=== PATIENT | male | born 1955 | race Hispanic/Latino ===

== ENCOUNTER 2017-11-20 02:44 | Emergency (ER) | payer OTHER ==
[2017-11-20 03:19] LABS: Basophils % (Auto) 0.6 % (0.0-1.8); Eosinophils % (Auto) 0.7 % (0.0-4.3); Hematocrit 43.2 % (35.5-45.6); Hemoglobin 14.5 gm/dl (11.8-15.2); Lymphocytes # (Auto) 1.3 K/mm3 (1.2-5.4); Lymphocytes % (Auto) 20.7 % (13.4-35.0); Mean Corpuscular HGB Conc 34 % (32-34); Mean Corpuscular Hemoglobin 30 pg (28-32); Mean Corpuscular Volume 89 fl (84-94); Monocytes # (Auto) 0.6 K/mm3 (0.0-0.8); Platelet Count 273 K/mm3 (140-440); Red Blood Count 4.87 M/mm3 (3.65-5.03); Red Cell Distribution Width 13.8 % (13.2-15.2)
[2017-11-20 03:49] LABS: Alanine Aminotransferase 28 units/L (7-56); Albumin 4.4 g/dL (3.9-5); BUN/Creatinine Ratio 21; Blood Urea Nitrogen 15 mg/dL (9-20); Calcium 9.6 mg/dL (8.4-10.2); Hemolysis Index 6
[2017-11-20 05:45] LABS: Bilirubin,Urine NEG (Negative); Blood,Urine NEG (Negative); Color,Urine Yellow (Yellow); Mucus,Urine FEW /HPF; Protein,Urine <15 mg/dL mg/dL (Negative); Urobilinogen,Urine < 2.0 mg/dL (<2.0)
[2017-11-20 05:52] LABS: Amphetamine Screen,Urine PRESUMPTIVE NEGATIVE; Benzodiazepines Screen,Urine PRESUMPTIVE NEGATIVE; Cannabinoid Screen,Urine PRESUMPTIVE NEGATIVE; Cocaine Screen,Urine PRESUMPTIVE NEGATIVE; Methadone Screen,Urine PRESUMPTIVE NEGATIVE; Opiate Screen,Urine PRESUMPTIVE NEGATIVE
[2017-11-20 06:00] LABS: WBC,Urine < 1.0 /HPF (0.0-6.0)
--- NOTE | 2017-11-20 06:14 | Emergency Department Report ---
ED Psych HPI - General Chief Complaint: Psych Stated Complaint: MH Time Seen by Provider: 11/20/17 06:13 Source: patient Mode of arrival: Ambulatory - History of Present Illness Initial Comments: Patient complains of suicidal ideation secondary to acute situational stress which is primarily financial, and onset yesterday evening, secondary to worrying about his current physical situation and became increasingly with a sense of depression and hopelessness and feeling like he wanted to kill himself , but without a definite plan. Patient has history of depression, has most recently been hospitalized over the past month and a series of psychiatric hospitals, under voluntary admission, for suicidal ideation and depression, and was currently living in a half-way house, when he developed his symptoms yesterday. He had his car at the facility, did not notify anyone, left and came here for further evaluation. Since being here overnight, he reports it is calm down substantially, and that he now no longer feels that he isn't suicidal , and again reports that there is no plan. He has no additional complaints, and believes that he is stable for discharge at this time, and will return to his half-way home residence, if psychiatric evaluation stable here. Patient has a history of coronary artery disease with prior stenting, takes carvedilol and lisinopril, for both his heart as well as for hypertension, but is otherwise in good general health. He has no additional complaints. Complaint: suicidal ideation - Related Data Allergies Allergy/AdvReac Type Severity Reaction Status Date / Time No Known Allergies Allergy Verified 11/20/17 02:50 ED Review of Systems ROS: Stated complaint: MH Other details as noted in HPI Comment: All other systems reviewed and negative Constitutional: denies: chills, fever ENT: denies: ear pain, throat pain Respiratory: denies: cough, shortness of breath, wheezing Cardiovascular: denies: chest pain, palpitations Endocrine: no symptoms reported Gastrointestinal: denies: abdominal pain, nausea, diarrhea Musculoskeletal: denies: back pain, joint swelling, arthralgia Skin: denies: rash, lesions Neurological: denies: headache, weakness, paresthesias Psychiatric: anxiety, depression, suicidal thoughts. denies: auditory hallucinations, visual hallucinations ED Past Medical Hx - Past Medical History Hx Hypertension: Yes Hx Heart Attack/AMI: (stent x1) Hx Psychiatric Treatment: Yes (depression) - Surgical History Past Surgical History?: No - Social History Smoking Status: Never Smoker Substance Use Type: None ED Physical Exam - General Limitations: No Limitations General appearance: alert, in no apparent distress - Head Head exam: Present: atraumatic, normocephalic - Eye Eye exam: Present: normal appearance, PERRL, EOMI - ENT ENT exam: Present: normal exam, mucous membranes moist - Neck Neck exam: Present: normal inspection, full ROM. Absent: tenderness - Respiratory Respiratory exam: Present: normal lung sounds bilaterally. Absent: wheezes, rales, rhonchi, accessory muscle use - Cardiovascular Cardiovascular Exam: Present: regular rate, normal heart sounds - GI/Abdominal GI/Abdominal exam: Present: soft, normal bowel sounds. Absent: tenderness, guarding - Rectal Rectal exam: Present: deferred - Extremities Exam Extremities exam: Present: normal inspection, full ROM. Absent: pedal edema - Neurological Exam Neurological exam: Present: alert, oriented X3, CN II-XII intact. Absent: motor sensory deficit - Psychiatric Psychiatric exam: Present: normal affect, normal mood. Absent: anxious, manic, suicidal ideation - Skin Skin exam: Present: warm, dry, intact ED Course Vital Signs 11/20/17 11/20/17 11/20/17 02:42 02:51 03:52 Temperature 36.9 C 36.9 C Pulse Rate 95 H 96 H Respiratory 20 18 18 Rate Blood Pressure 143/94 143/94 Blood Pressure [Right] O2 Sat by Pulse 97 97 100 Oximetry 11/20/17 11/20/17 07:30 10:54 Temperature 36.7 C Pulse Rate 77 Respiratory 18 18 Rate Blood Pressure Blood Pressure 153/90 [Right] O2 Sat by Pulse 97 Oximetry - Consultations Consultation #1: 11/20/17 12:58 Patient evaluated by mental health advisor, Aretha, who agrees that patient is much calmer now, and that his suicidal thoughts have subsided, and that is stable for outpatient treatment, and that is well established within the system. He may continue to receive his care from there, return to his half-way home, and may continue his prior regimen, with accelerated repeat evaluation by his mental health counselor. ED Medical Decision Making - Lab Data Result diagrams: 11/20/17 02:56 11/20/17 02:56 - Medical Decision Making Patient with multiple chronic acute stressors, has had exacerbation recently, as the confluence of several sources of stress, both with the recent of a relative, as well as loss of house, all which he tried to manage while being treated as inpatient for depression. This patient has been here overnight, symptoms have subsided as has been removed from source of stress, that he never had a well-formed plan in any case, reports it is no longer suicidal. Psychiatric assessment team concurs, and we both believe the patient is stable for discharge, as he is well established with an system of care, and may return to his prior medication, but should have accelerated repeat visit with psychiatrist or mental health counselor on one to 2 daily basis. Critical Care Time: No Critical care attestation.: If time is entered above; I have spent that time in minutes in the direct care of this critically ill patient, excluding procedure time. ED Disposition Clinical Impression: Acute reaction to situational stress, Suicidal ideation Disposition: TO HOME OR SELFCARE Is pt being admited?: No Does the pt Need Aspirin: No Condition: Stable Instructions: Stress (ED) Additional Instructions: Physical examination and laboratory examination today are stable, and your feelings of increased thoughts of suicide have subsided, and our evaluation and impression is that you're stable for discharge home. He may return here half-way house facility, continue your medications as before, but we also recommend accelerated repeat examination by a mental health counselor or psychiatrist, generally within 1 or 2 days. Return anytime if you have had increased feelings of hopelessness, or thoughts of wanting to hurt yourself or commit suicide. Referrals: PRIMARY CAREMD [Primary Care Provider] - 3-5 Days Time of Disposition: 13:04
[2017-11-20] MEDS ORDERED: TYLENOL PO ONE (07:20)
[2017-11-20] MEDS ORDERED: TYLENOL ONE (07:22)
[2017-11-20 11:07] VITALS: BP 153/90
== END 2017-11-20 13:24 | disposition home or self-care (01) ==
LOC: EEVIPCON 02:44 → ED 02:44
DX: F43.0 Acute stress reaction (principal); F32.9 Major depressive disorder, single episode, unspecified; I10 Essential (primary) hypertension; I25.10 Atherosclerotic heart disease of native coronary artery without angina pectoris
CPT/HCPCS: 36415; 80053; 80307; 81001; 85025; 99283

== ENCOUNTER 2018-01-03 15:57 | Emergency (ER) | payer OTHER ==
[2018-01-03 16:34] LABS: Basophils % (Auto) 0.7 % (0.0-1.8); Eosinophils # (Auto) 0.1 K/mm3 (0.0-0.4); Eosinophils % (Auto) 0.8 % (0.0-4.3); Hematocrit 47.7 % (35.5-45.6); Hemoglobin 16.3 gm/dl (11.8-15.2); Lymphocytes # (Auto) 1.4 K/mm3 (1.2-5.4); Lymphocytes % (Auto) 20.2 % (13.4-35.0); Mean Corpuscular HGB Conc 34 % (32-34); Mean Corpuscular Hemoglobin 30 pg (28-32); Mean Corpuscular Volume 87 fl (84-94); Monocytes # (Auto) 0.9 K/mm3 (0.0-0.8); Monocytes % (Auto) 13.6 % (0.0-7.3); Platelet Count 251 K/mm3 (140-440); Red Blood Count 5.46 M/mm3 (3.65-5.03); Red Cell Distribution Width 14.2 % (13.2-15.2)
[2018-01-03 16:47] LABS: BUN/Creatinine Ratio 20; Blood Urea Nitrogen 20 mg/dL (9-20); Calcium 9.4 mg/dL (8.4-10.2); Hemolysis Index 7
[2018-01-03 17:04] LABS: Bacteria,Urine 1+ /HPF (Negative); Bilirubin,Urine NEG (Negative); Blood,Urine NEG (Negative); Color,Urine Amber (Yellow); Mucus,Urine 3+ /HPF
[2018-01-03 17:08] LABS: Amphetamine Screen,Urine PRESUMPTIVE NEGATIVE; Benzodiazepines Screen,Urine PRESUMPTIVE NEGATIVE; Cannabinoid Screen,Urine PRESUMPTIVE NEGATIVE; Cocaine Screen,Urine PRESUMPTIVE NEGATIVE; Methadone Screen,Urine PRESUMPTIVE NEGATIVE; Opiate Screen,Urine PRESUMPTIVE NEGATIVE
--- NOTE | 2018-01-03 19:54 | Emergency Department Report ---
ED Psych HPI - General Chief Complaint: Medical Clearance Stated Complaint: SUICDAL Time Seen by Provider: 01/03/18 19:24 Source: patient Mode of arrival: Ambulatory - History of Present Illness Initial Comments: Patient with long-standing history of depression, reports increased suicidal ideation, prompted by recent loss of his current long term at [facility], where he was unhappy in any case, but from which she was dismissed today. He has been receiving daily counseling at [facility] on an outpatient basis, and made contact with him about inpatient admission, but was sent here for medical clearance. Frequency of suicidal thoughts, but these have been poorly formed, and he has not made any active plans, and has not made any active attempt. His primary concern is about his current situation, which increases his sense of desperation and hopelessness, which increases his symptoms of depression, which increases his suicidal thought frequency. Other than that, patient has been stable, denies substance abuse, with no alcohol ingestion, no oral drugs of abuse, no injectable drugs of abuse, but also reports that he has also not had much in the way of nourishment since he left long term, reporting that he is hungry and thirsty, and requesting food. Other than that he is feeling fairly well. Patient denies any fever or chills or diaphoresis, having no respiratory difficulties, no abdominal pain, no nausea or vomiting, no diarrhea. He does not feel confused, does not feel out of touch with reality, and denies hallucinations or delusional thinking. Patient evaluated here one month ago for similar complaints, with stable evaluation, but ultimately felt to be stable for outpatient care, and has been managed at [facility] for counseling on a daily basis since then. - Related Data Allergies Allergy/AdvReac Type Severity Reaction Status Date / Time No Known Allergies Allergy Verified 11/20/17 02:50 ED Review of Systems ROS: Stated complaint: SUICDAL Other details as noted in HPI Comment: All other systems reviewed and negative Constitutional: denies: chills, fever Respiratory: denies: cough, shortness of breath, wheezing Cardiovascular: denies: chest pain, palpitations Endocrine: no symptoms reported Gastrointestinal: denies: abdominal pain, nausea, diarrhea Genitourinary: denies: urgency, dysuria Musculoskeletal: denies: back pain, joint swelling, arthralgia Skin: denies: rash, lesions Neurological: denies: headache, weakness, paresthesias Psychiatric: anxiety, depression, suicidal thoughts Hematological/Lymphatic: denies: easy bleeding, easy bruising ED Past Medical Hx - Past Medical History Hx Hypertension: Yes Hx Heart Attack/AMI: (stent x1) Hx Psychiatric Treatment: Yes (depression) - Surgical History Past Surgical History?: No - Social History Smoking Status: Never Smoker Substance Use Type: None ED Physical Exam - General Limitations: No Limitations General appearance: alert, in no apparent distress - Head Head exam: Present: atraumatic, normocephalic - Eye Eye exam: Present: PERRL, EOMI - ENT ENT exam: Present: normal exam, mucous membranes dry - Neck Neck exam: Present: normal inspection, full ROM. Absent: tenderness - Respiratory Respiratory exam: Present: normal lung sounds bilaterally, chest wall tenderness (mild left lateral anterior chest wall muscular tenderness). Absent : respiratory distress, wheezes, accessory muscle use - Cardiovascular Cardiovascular Exam: Present: regular rate, normal rhythm, normal heart sounds, systolic murmur (soft 1-2/6, heard in left lower sternal border). Absent: diastolic murmur - GI/Abdominal GI/Abdominal exam: Present: soft - Rectal Rectal exam: Present: deferred - Extremities Exam Extremities exam: Present: normal inspection, full ROM. Absent: tenderness, pedal edema, joint swelling ED Course Vital Signs 01/03/18 01/03/18 16:08 17:30 Temperature 36.6 C 36.8 C Pulse Rate 102 H 107 H Respiratory 16 20 Rate Blood Pressure 105/72 Blood Pressure 106/74 [Right] O2 Sat by Pulse 96 96 Oximetry - Reevaluation(s) Reevaluation #1: 01/03/18 20:22 1013 commitment signed. ED Medical Decision Making - Lab Data Result diagrams: 01/03/18 16:15 01/03/18 16:15 tox screen is negative, no alcohol, salicylates, acetaminophen, or common drugs of abuse. - Medical Decision Making Patient is chronically depressed, and has had recent exacerbation of depressive symptoms with situational stress and loss of home, and has expressed suicidal ideation. Mental health assessment feels that he is a significant risk, and that he is unable to comfortably sign a security agreement, and the patient will likely need inpatient evaluation and stabilization. Patient is physically stable, but he has mild metabolic abnormalities with a depressed bicarbonate, likely compatible with dehydration and acute starvation due to lack of recent nourishment. Patient declined offer of IV rehydration, will be rehydrated orally, and was offered meals while pending placement. Laboratory assessment of basic metabolic profile will be repeated on time to basis in 3 hours, and other labs are currently pending will be rechecked prior to patient's transfer, the patient is considered stable ones he has complete review of laboratory evaluation and resolution of his basic metabolic profile alterations. Critical Care Time: No Critical care attestation.: If time is entered above; I have spent that time in minutes in the direct care of this critically ill patient, excluding procedure time. ED Disposition Clinical Impression: Suicidal ideation, Dehydration Disposition: [id number]/TX-65 PSY HOSP/PSY UNIT Is pt being admited?: No Does the pt Need Aspirin: No Condition: Stable Referrals: PRIMARY CARE [Primary Care Provider] - 3-5 Days Time of Disposition: 20:20
[2018-01-03 23:20] LABS: BUN/Creatinine Ratio 24; Blood Urea Nitrogen 22 mg/dL (9-20); Calcium 9.3 mg/dL (8.4-10.2); Hemolysis Index 1
--- NOTE | 2018-01-04 16:00 | Consultation ---
History of Present Illness - Reason for Consult Consult date: 01/04/18 Reason for consult: psychiatric evaluation (suicidal ideation) - Chief Complaint Chief complaint: "I don't know if I want to go on [living]." - History of Present Psychiatric Illness 62 year old WM seen for psychiatric evaluation in the ER. He left [facility] apartments after a disagreement with the person in charge. He states he thinks about overdosing on his medications. He states he has one day left at the [facility] outpatient program. He was inpatient at [facility] for 6 days prior to that. He expressed complaints about [facility], such as receiving food sporadically. He states the person in charge, Jez Vogtton, took their money to buy "dope and entertain his women." He reports being diagnosed with major depression x 2 years. He denies psychotic or manic symptoms currently or previously. He denies homicidal ideation. Medications and Allergies Allergies Allergy/AdvReac Type Severity Reaction Status Date / Time No Known Allergies Allergy Verified 11/20/17 02:50 Home Medications Medication Instructions Recorded Confirmed Last Taken Type Carvedilol Phosphate [Carvedilol 10 mg PO DAILY 01/03/18 01/03/18 Unknown History ER] Lisinopril [Prinivil] 10 mg PO BID 01/03/18 01/03/18 Unknown History AtorvaSTATin 10 mg PO QHS 01/04/18 01/04/18 Unknown History Past psychiatric history - Past Medical History Past Medical History: CAD, hypertension, hyperlipidemia Past Surgical History: PTCA - past Psychiatric treatment and history Psych: Depression psychiatric treatment history: denies alcohol or illicit substance use denies tobacco use He has been taking paxil and trazodone x 1 mo He denies a history of suicide attempt - Social History Social history: Lives alone (unstable housing) Mental Status Exam - Vital signs Last Vital Signs Temp 97.7 F 01/04/18 09:21 Pulse 87 01/04/18 09:21 Resp 20 01/04/18 09:21 BP 104/70 01/04/18 09:21 Pulse Ox 98 01/04/18 09:21 - Exam Orientation: time, place, person Affect: depressed Mood: congruent with affect Thought content: other (suicidal ideation with a plan to overdose) Thought Process: Intact Perceptions: none Speech: normal rate and pattern Concentration: focused Motor activity: normal Level of consciousness: alert Memory: Intact Sleep Symptoms: Difficulty Falling Asleep Interaction: cooperative Results Result Diagrams: 01/03/18 16:15 01/03/18 22:53 Abnormal lab results 01/03/18 01/03/18 01/03/18 Range/Units 16:15 16:15 16:15 RBC (3.65-5.03) M/mm3 Hgb (11.8-15.2) gm/dl Hct (35.5-45.6) % [place] % (Auto) (0.0-7.3) % [place] # (0.0-0.8) K/mm3 Sodium (137-145) mmol/L Carbon Dioxide 19 L (22-30) mmol/L BUN (9-20) mg/dL Glucose (75-100) mg/dL Salicylates < 0.3 L (2.8-20.0) mg/dL Acetaminophen < 5.0 L (10.0-30.0) ug/mL 01/03/18 01/03/18 Range/Units 16:15 22:53 RBC 5.46 H (3.65-5.03) M/mm3 Hgb 16.3 H (11.8-15.2) gm/dl Hct 47.7 H (35.5-45.6) % [place] % (Auto) 13.6 H (0.0-7.3) % [place] # 0.9 H (0.0-0.8) K/mm3 Sodium 136 L (137-145) mmol/L Carbon Dioxide (22-30) mmol/L BUN 22 H (9-20) mg/dL Glucose 123 H (75-100) mg/dL Salicylates (2.8-20.0) mg/dL Acetaminophen (10.0-30.0) ug/mL All other labs normal. Assessment and Plan Assessment and plan: Impression: Major depressive disorder, recurrent, severe, without psychotic features suicidal ideation with a plan to overdose med hx: CAD, hyperlipidemia, HTN, obesity Recommendations: Continue 1013 and transfer to inpatient psychiatric facility when medically cleared Continue home meds of paxil 10mg daily and trazodone 50mg hs for depression/ sleep. He denies side effects when taking these together. His nurse was informed he takes lisinopril 10mg daily, coreg 6.25mg daily, and atorvastatin 10mg hs for his medical conditions.
[2018-01-04] MEDS ORDERED: ZESTRIL PO SCH (19:00)
[2018-01-04] MEDS ORDERED: COREG PO SCH (22:00)
[2018-01-04] MEDS ORDERED: PAXIL PO SCH (22:00)
[2018-01-04] MEDS ORDERED: DESYREL PO SCH (22:00)
[2018-01-05 00:43] VITALS: BP 109/74
== END 2018-01-05 08:17 ==
LOC: ED 15:57
DX: F32.9 Major depressive disorder, single episode, unspecified (principal)
CPT/HCPCS: 36415; 80048; 80307; 81001; 82140; 84484; 85025; 93005; 93010; 99285; A9270; G0480; 80320

== ENCOUNTER 2018-06-12 06:23 | Emergency (ER) | payer OTHER ==
[2018-06-12] MEDS ORDERED: ASPIRIN PO ONE (06:42)
[2018-06-12 07:06] LABS: Basophils % (Auto) 0.6 % (0.0-1.8); Eosinophils # (Auto) 0.1 K/mm3 (0.0-0.4); Eosinophils % (Auto) 1.3 % (0.0-4.3); Hematocrit 40.7 % (35.5-45.6); Hemoglobin 13.6 gm/dl (11.8-15.2); Lymphocytes # (Auto) 1.5 K/mm3 (1.2-5.4); Lymphocytes % (Auto) 24.4 % (13.4-35.0); Mean Corpuscular HGB Conc 33 % (32-34); Mean Corpuscular Volume 88 fl (84-94); Monocytes # (Auto) 0.5 K/mm3 (0.0-0.8); Monocytes % (Auto) 7.4 % (0.0-7.3); Platelet Count 286 K/mm3 (140-440); Red Blood Count 4.61 M/mm3 (3.65-5.03); Red Cell Distribution Width 14.2 % (13.2-15.2)
[2018-06-12 07:16] LABS: Bilirubin,Urine NEG (Negative); Blood,Urine NEG (Negative); Color,Urine Yellow (Yellow); Mucus,Urine 3+ /HPF; Protein,Urine <15 mg/dL mg/dL (Negative); Urobilinogen,Urine < 2.0 mg/dL (<2.0)
[2018-06-12 07:18] LABS: Amphetamine Screen,Urine PRESUMPTIVE NEGATIVE; Benzodiazepines Screen,Urine PRESUMPTIVE NEGATIVE; Cannabinoid Screen,Urine PRESUMPTIVE NEGATIVE; Cocaine Screen,Urine PRESUMPTIVE NEGATIVE; Methadone Screen,Urine PRESUMPTIVE NEGATIVE; Opiate Screen,Urine PRESUMPTIVE NEGATIVE
[2018-06-12 07:21] LABS: BUN/Creatinine Ratio 18; Blood Urea Nitrogen 16 mg/dL (9-20); Calcium 9.1 mg/dL (8.4-10.2); Hemolysis Index 6
--- NOTE | 2018-06-12 07:45 | Emergency Department Report ---
ED Psych HPI - General Chief Complaint: Psych Stated Complaint: URI Time Seen by Provider: 06/12/18 07:40 Source: patient Mode of arrival: Ambulatory - History of Present Illness Initial Comments: Patient is a 62-year-old male that presents to emergency room with complaints of cough 4 days. Patient states he was seen at [facility] 2 days ago and given prescription for Doxy for walking pneumonia. Patient states the cough is improving. Patient states when he coughs he has chest pain is bilateral ribs. Patient states the pain is only there when he coughs and is better when he doesn't cough and rest. Patient states that pain is worse with coughing and palpation. Patient states that he was just discharged from her with this morning at 6 AM for depression and suicidal ideations. Patient states he still having suicidal ideation and still has a plan to kill himself with pills. Patient states he does want to live any wants to take pills in order to kill himself. Patient states he is depressed. Patient states the cough is a dry cough. Patient denies fever. Patient states she is having sinus pressure and a 2 out of 10. Patient states sinus pressure is nonradiating. MD Complaint: suicidal ideation, feels depressed -: Sudden Associated Psychiatric Symptoms: depression, suicidal ideation History of same: Yes Quality: constant Improves With: none Worsens With: none Associated Symptoms: denies: confusion, headache, shortness of breath, nausea, vomiting, syncope, insomnia Treatments Prior to Arrival: placed on mental he If Self Harm: admits thoughts of, has plan - Related Data Home Medications Medication Instructions Recorded Confirmed Last Taken Carvedilol Phosphate [Carvedilol 10 mg PO DAILY 01/03/18 01/03/18 Unknown ER] Lisinopril [Prinivil] 10 mg PO BID 01/03/18 01/03/18 Unknown AtorvaSTATin 10 mg PO QHS 01/04/18 01/04/18 Unknown Allergies Allergy/AdvReac Type Severity Reaction Status Date / Time No Known Allergies Allergy Verified 06/05/18 10:14 ED Review of Systems ROS: Stated complaint: URI Other details as noted in HPI Constitutional: denies: chills, fever Eyes: denies: eye pain, eye discharge, vision change ENT: denies: ear pain, throat pain Respiratory: cough. denies: shortness of breath, wheezing Cardiovascular: chest pain. denies: palpitations Endocrine: no symptoms reported Gastrointestinal: denies: abdominal pain, nausea, diarrhea Genitourinary: denies: urgency, dysuria Musculoskeletal: denies: back pain, joint swelling, arthralgia Skin: denies: rash, lesions Neurological: denies: headache, weakness, paresthesias Psychiatric: denies: anxiety, depression Hematological/Lymphatic: denies: easy bleeding, easy bruising ED Past Medical Hx - Past Medical History Previous Medical History?: Yes Hx Hypertension: Yes Hx Heart Attack/AMI: (stent x1) Hx Psychiatric Treatment: Yes (depression) - Surgical History Past Surgical History?: Yes Hx Coronary Stent: Yes - Family History Family history: no significant - Social History Smoking Status: Never Smoker Substance Use Type: None - Medications Home Medications: Home Medications Medication Instructions Recorded Confirmed Last Taken Type Carvedilol Phosphate [Carvedilol 10 mg PO DAILY 01/03/18 01/03/18 Unknown History ER] Lisinopril [Prinivil] 10 mg PO BID 01/03/18 01/03/18 Unknown History AtorvaSTATin 10 mg PO QHS 01/04/18 01/04/18 Unknown History ED Physical Exam - General Limitations: No Limitations General appearance: alert, in no apparent distress - Head Head exam: Present: atraumatic, normocephalic - Eye Eye exam: Present: normal appearance - ENT ENT exam: Present: mucous membranes moist - Neck Neck exam: Present: normal inspection - Respiratory Respiratory exam: Present: normal lung sounds bilaterally. Absent: respiratory distress - Cardiovascular Cardiovascular Exam: Present: regular rate, normal rhythm. Absent: systolic murmur, diastolic murmur, rubs, gallop - GI/Abdominal GI/Abdominal exam: Present: soft, normal bowel sounds - Rectal Rectal exam: Present: deferred - Extremities Exam Extremities exam: Present: normal inspection - Back Exam Back exam: Present: normal inspection - Neurological Exam Neurological exam: Present: alert, oriented X3 - Psychiatric Psychiatric exam: Present: depressed, suicidal ideation - Skin Skin exam: Present: warm, dry, intact, normal color. Absent: rash ED Course Vital Signs 06/12/18 06/12/18 06:33 08:10 Temperature 98.2 F Pulse Rate 88 73 Respiratory 20 20 Rate Blood Pressure 135/87 O2 Sat by Pulse 95 97 Oximetry - Reevaluation(s) Reevaluation #1: She states he has not coughed since he's been here. Patient denies chest pain. Patient denies shortness of breath. Patient states she is still suicidal. 06/12/18 08:37 Discussed all results with patient. Patient will remain on 1013. Patient is medically cleared at this time. Mental health Consultation done. 06/12/18 10:24 ED Medical Decision Making - Lab Data Result diagrams: 06/12/18 06:55 06/12/18 06:55 - EKG Data -: EKG Interpreted by [facility] EKG shows normal: sinus rhythm, axis, intervals, QRS complexes, ST-T waves Rate: normal - EKG Data When compared to previous EKG there are: no significant change Interpretation: [facility] - Radiology Data Radiology results: report reviewed, image reviewed PORTABLE CHEST INDICATION: Cough. COMPARISON: 06/05/2018 FINDINGS: Portable, frontal chest radiograph again demonstrates mild cardiomegaly. Lungs remain clear. Stable thoracic spondylosis. CONCLUSION: No acute chest process or significant interval change, as described. - Medical Decision Making Patient is 62-year-old male that came to the ER with complaints of cough, chest pain and suicidal ideations. Patient cough and chest pain secondary to upper respiratory infection. Patient referred infection is of viral origin. Patient is medically clear. Patient was also placed on a 1013 for suicidal ideation with a plan to overdose pill. Patient will remain on a 1013 until accepted into appropriate psychiatric facility. - Differential Diagnosis suicidal ideations. Chest pain. URI. Cough. Critical care attestation.: If time is entered above; I have spent that time in minutes in the direct care of this critically ill patient, excluding procedure time. ED Disposition Clinical Impression: Costochondral chest pain, Cough, Suicidal ideations URI (upper respiratory infection) Qualifiers: URI type: unspecified URI Qualified Code(s): J06.9 - Acute upper respiratory infection, unspecified Chest pain Qualifiers: Chest pain type: unspecified Qualified Code(s): R07.9 - Chest pain, unspecified Disposition: DC/TX-65 PSY HOSP/PSY UNIT Is pt being admited?: No Does the pt Need Aspirin: No Condition: Stable Instructions: Chest Pain (ED), Costochondritis (ED), Upper Respiratory Infection (ED) Additional Instructions: Patient is medically cleared Referrals: SUSU DOLAN MD [Primary Care Provider] - 3-5 Days Time of Disposition: 10:22
--- NOTE | 2018-06-12 08:00 | XRay Report ---
PORTABLE CHEST INDICATION: Cough. COMPARISON: 06/05/2018 FINDINGS: Portable, frontal chest radiograph again demonstrates mild cardiomegaly. Lungs remain clear. Stable thoracic spondylosis. CONCLUSION: No acute chest process or significant interval change, as described. Thank you for the opportunity to participate in this patient's care.
[2018-06-12] MEDS: ZESTRIL PO SCH ×2 (16:40→22:26)
[2018-06-14 11:29] VITALS: BP 138/75
== END 2018-06-12 22:00 ==
LOC: ED 06:23
DX: J06.9 Acute upper respiratory infection, unspecified (principal); M94.0 Chondrocostal junction syndrome [Tietze]; R45.851 Suicidal ideations; I10 Essential (primary) hypertension; I25.2 Old myocardial infarction; F32.9 Major depressive disorder, single episode, unspecified; Z95.5 Presence of coronary angioplasty implant and graft
CPT/HCPCS: 36415; 71045; 80048; 80307; 81001; 84484; 85025; 93005; 93010; 99285; G0480; 80320

== ENCOUNTER 2018-11-24 20:24 | Emergency (ER) | payer OTHER ==
[2018-11-24] MEDS ORDERED: ASPIRIN PO ONE (20:48)
[2018-11-24 21:21] LABS: Basophils % (Auto) 0.3 % (0.0-1.8); Eosinophils # (Auto) 0.1 K/mm3 (0.0-0.4); Eosinophils % (Auto) 1.3 % (0.0-4.3); Hematocrit 38.8 % (35.5-45.6); Hemoglobin 13.1 gm/dl (11.8-15.2); Lymphocytes # (Auto) 1.1 K/mm3 (1.2-5.4); Lymphocytes % (Auto) 13.8 % (13.4-35.0); Mean Corpuscular HGB Conc 34 % (32-34); Mean Corpuscular Volume 89 fl (84-94); Monocytes # (Auto) 0.7 K/mm3 (0.0-0.8); Monocytes % (Auto) 8.8 % (0.0-7.3); Platelet Count 209 K/mm3 (140-440); Red Blood Count 4.38 M/mm3 (3.65-5.03); Red Cell Distribution Width 14.9 % (13.2-15.2)
[2018-11-24 21:37] LABS: BUN/Creatinine Ratio 23; Blood Urea Nitrogen 21 mg/dL (9-20); Hemolysis Index 13
[2018-11-24 21:41] LABS: INR 1.08 (0.87-1.13)
[2018-11-24 21:42] LABS: Partial Thromboplastin Time 24.1 Sec. (24.2-36.6)
--- NOTE | 2018-11-24 21:55 | XRay Report ---
CHEST 1 VIEW, 11/24/2018 9:23 PM INDICATION: Chest pain COMPARISON: None FINDINGS: Support devices: None Heart: The cardiac silhouette is upper limits of normal in size. Lungs/pleura: No focal airspace disease or significant pleural effusion is seen. Additional findings: No additional acute findings. IMPRESSION: 1. No evidence of acute cardiopulmonary process. Signer Name: Valentina Luis MD Signed: 11/24/2018 9:50 PM Workstation Name: [id number]
--- NOTE | 2018-11-24 21:57 | Emergency Department Report ---
<ALIVIA MERINO - Last Filed: 11/25/18 06:09> ED Chest Pain HPI - General Chief Complaint: Chest Pain Stated Complaint: CHEST PAIN Time Seen by Provider: 11/24/18 21:14 - Related Data Home Medications Medication Instructions Recorded Confirmed Last Taken Carvedilol Phosphate [Carvedilol 10 mg PO DAILY 01/03/18 06/12/18 Unknown ER] Lisinopril [Prinivil] 10 mg PO BID 01/03/18 06/12/18 Unknown AtorvaSTATin 10 mg PO QHS 01/04/18 06/12/18 Unknown Allergies Allergy/AdvReac Type Severity Reaction Status Date / Time No Known Allergies Allergy Verified 06/05/18 10:14 ED Past Medical Hx - Medications Home Medications: Home Medications Medication Instructions Recorded Confirmed Last Taken Type Carvedilol Phosphate [Carvedilol 10 mg PO DAILY 01/03/18 06/12/18 Unknown History ER] Lisinopril [Prinivil] 10 mg PO BID 01/03/18 06/12/18 Unknown History AtorvaSTATin 10 mg PO QHS 01/04/18 06/12/18 Unknown History ED Medical Decision Making - Lab Data Result diagrams: 11/24/18 20:59 11/24/18 20:59 - Radiology Data VQ scan is low probability for pulmonary embolus - Medical Decision Making Patient has a normal VQ scan. Patient be discharged home with close follow-up with cardiology. ED Disposition Clinical Impression: Chest pain Disposition: DC-01 TO HOME OR SELFCARE Is pt being admited?: No Does the pt Need Aspirin: No Condition: Stable Instructions: Chest Pain (ED) Referrals: LANEXA ONIMERIGOLD MD SALVATORE [Primary Care Provider] - 3-5 Days Time of Disposition: 06:09 <MICHAEL TIDWELL - Last Filed: 11/26/18 06:02> ED Chest Pain HPI - General Source: patient, EMS Mode of arrival: Stretcher Limitations: No Limitations - History of Present Illness Initial Comments: 63-year-old male with a past medical history of CAD with 1 stent, hypertension, and depression presents to Hospital with complaints of left sided chest pain. Pain started while walking [place] [address]. Pain is in the left side of his chest, felt like a dagger, and associated shortness of breath. Patient did receive aspirin 324 mg and nitroglycerin in route with some relief. Patient is upset and anxious. He states he has is upset because when he was admitted to [facility] his car was parked in the parking lot and he was told it was towed. He was told that his car was likely sold and has been trying to get in contact with his insurance attorney and was forced to walk down here and attempt to get to [facility]. Patient states he is compliant with his meds which include aspirin and anticholesterol medication. He has not prescribed Plavix. He reports he had an unremarkable stress test at [place] a few months ago. He denies calf tenderness, leg edema, history of PE/DVT. Patient has a history a CAD requiring stent was presented with severe dyspnea. Patient states that his symptoms today were not similar and he denies nausea, vomiting, or diaphoresis. Severity scale (0 -10): 4 Heart Score - HEART Score History: Slightly suspicious EKG: Normal Age: 45-65 Risk factors: > 3 risk factors or hx of atherosclerotic disease Troponin: < normal limit HEART Score: 3 ED Review of Systems ROS: Stated complaint: CHEST PAIN Other details as noted in HPI Comment: All other systems reviewed and negative ED Past Medical Hx - Past Medical History Hx Hypertension: Yes Hx Heart Attack/AMI: (stent x1) Hx Psychiatric Treatment: Yes (depression) - Surgical History Hx Coronary Stent: Yes - Social History Smoking Status: Never Smoker Substance Use Type: None ED Physical Exam - General Limitations: No Limitations - Other Other exam information: General: No limitations, patient is alert in no acute distress Head exam: Atraumatic, normocephalic Eyes exam: Normal appearance, pupils equal reactive to light, extraocular movements intact ENT: Moist mucous membrane, normal oropharynx Neck exam: Normal inspection, full range of motion, no meningismus nontender Respiratory exam: Clear to auscultation bilateral, no wheezes, rales, crackles Cardiovascular: Normal rate and rhythm, normal heart sounds, chest wall nontender Abdomen: Soft, nondistended, and nontender, with normal bowel sounds, no rebound, or guarding Extremity: Full range of motion normal inspection no deformity, no calf tenderness or edema Back: Normal Inspection, full range of motion, no tenderness Neurologic: Alert, oriented x3, cranial nerves intact, no motor or sensory deficit Psychiatric: normal affect, normal mood, Skin: Warm, dry, intact ED Course Vital Signs 11/24/18 11/24/18 11/24/18 20:37 21:03 21:16 Temperature Pulse Rate 80 79 72 Respiratory 16 24 14 Rate Blood Pressure 118/82 103/54 O2 Sat by Pulse 97 95 94 Oximetry 11/24/18 11/24/18 11/24/18 21:21 21:30 21:46 Temperature 98.2 F Pulse Rate 77 77 Respiratory 20 12 Rate Blood Pressure 107/59 103/54 O2 Sat by Pulse 99 99 Oximetry 11/24/18 11/24/18 11/24/18 22:00 22:07 23:46 Temperature Pulse Rate 81 109 H 74 Respiratory 24 19 16 Rate Blood Pressure 98/65 98/65 96/55 O2 Sat by Pulse 97 97 Oximetry 11/25/18 11/25/18 11/25/18 00:00 00:16 00:37 Temperature Pulse Rate 67 Respiratory 21 21 Rate Blood Pressure 98/65 122/74 O2 Sat by Pulse 97 Oximetry 11/25/18 11/25/18 11/25/18 00:46 01:00 01:16 Temperature Pulse Rate 73 68 75 Respiratory Rate Blood Pressure 122/74 122/74 116/85 O2 Sat by Pulse Oximetry 11/25/18 11/25/18 11/25/18 02:00 02:16 02:30 Temperature Pulse Rate 64 65 Respiratory 22 14 12 Rate Blood Pressure 116/85 116/85 116/85 O2 Sat by Pulse 98 98 97 Oximetry 11/25/18 11/25/18 11/25/18 02:46 03:00 03:16 Temperature Pulse Rate 67 73 Respiratory 18 15 16 Rate Blood Pressure 116/85 116/85 116/85 O2 Sat by Pulse Oximetry 11/25/18 11/25/18 11/25/18 03:30 04:22 04:46 Temperature Pulse Rate 64 71 Respiratory 15 20 15 Rate Blood Pressure 116/85 116/85 107/54 O2 Sat by Pulse 97 Oximetry 11/25/18 11/25/18 11/25/18 05:16 06:00 06:16 Temperature Pulse Rate 82 69 60 Respiratory 15 14 11 L Rate Blood Pressure 96/48 92/62 92/62 O2 Sat by Pulse 96 94 94 Oximetry - Reevaluation(s) Reevaluation #1: 11/25/18 02:37 Patient is pain-free TRES score - Tres Score Age > 65: (0) No Aspirin use within the Past 7 Days: (1) Yes 3 or more CAD Risk Factors: (1) Yes 2 or more Angina events in past 24 hrs: (0) No Known CAD with more than 50% Stenosis: (1) Yes Elevated Cardiac Markers: (0) No ST Deviation Greater than 0.5mm: (0) No TRES Score: 3 ED Medical Decision Making - Lab Data Result diagrams: 11/24/18 20:59 11/24/18 20:59 Lab Results 11/24/18 11/24/18 11/24/18 Range/Units 20:59 20:59 21:22 WBC 7.8 (4.5-11.0) K/mm3 RBC 4.38 (3.65-5.03) M/mm3 Hgb 13.1 (11.8-15.2) gm/dl Hct 38.8 (35.5-45.6) % MCV 89 (84-94) fl MCH 30 (28-32) pg MCHC 34 (32-34) % RDW 14.9 (13.2-15.2) % Plt Count 209 (140-440) K/mm3 Lymph % (Auto) 13.8 (13.4-35.0) % [place] % (Auto) 8.8 H (0.0-7.3) % Eos % (Auto) 1.3 (0.0-4.3) % Baso % (Auto) 0.3 (0.0-1.8) % Lymph # 1.1 L (1.2-5.4) K/mm3 [place] # 0.7 (0.0-0.8) K/mm3 Eos # 0.1 (0.0-0.4) K/mm3 Baso # 0.0 (0.0-0.1) K/mm3 Seg Neutrophils % 75.8 H (40.0-70.0) % Seg Neutrophils # 5.9 (1.8-7.7) K/mm3 PT 13.7 (12.2-14.9) Sec. INR 1.08 (0.87-1.13) APTT 24.1 L (24.2-36.6) Sec. D-Dimer (0-234) ng/mlDDU Sodium 137 (137-145) mmol/L Potassium 3.6 (3.6-5.0) mmol/L Chloride 106.1 (98-107) mmol/L Carbon Dioxide 19 L (22-30) mmol/L Anion Gap 16 mmol/L BUN 21 H (9-20) mg/dL Creatinine 0.9 (0.8-1.5) mg/dL Estimated GFR > 60 ml/min BUN/Creatinine Ratio 23 % Glucose 146 H (75-100) mg/dL Calcium 9.0 (8.4-10.2) mg/dL Troponin T < 0.010 (0.00-0.029) ng/mL 11/24/18 11/24/18 Range/Units 21:51 23:51 WBC (4.5-11.0) K/mm3 RBC (3.65-5.03) M/mm3 Hgb (11.8-15.2) gm/dl Hct (35.5-45.6) % MCV (84-94) fl MCH (28-32) pg MCHC (32-34) % RDW (13.2-15.2) % Plt Count (140-440) K/mm3 Lymph % (Auto) (13.4-35.0) % [place] % (Auto) (0.0-7.3) % Eos % (Auto) (0.0-4.3) % Baso % (Auto) (0.0-1.8) % Lymph # (1.2-5.4) K/mm3 [place] # (0.0-0.8) K/mm3 Eos # (0.0-0.4) K/mm3 Baso # (0.0-0.1) K/mm3 Seg Neutrophils % (40.0-70.0) % Seg Neutrophils # (1.8-7.7) K/mm3 PT (12.2-14.9) Sec. INR (0.87-1.13) APTT (24.2-36.6) Sec. D-Dimer 356.91 H (0-234) ng/mlDDU Sodium (137-145) mmol/L Potassium (3.6-5.0) mmol/L Chloride (98-107) mmol/L Carbon Dioxide (22-30) mmol/L Anion Gap mmol/L BUN (9-20) mg/dL Creatinine (0.8-1.5) mg/dL Estimated GFR ml/min BUN/Creatinine Ratio % Glucose (75-100) mg/dL Calcium (8.4-10.2) mg/dL Troponin T < 0.010 (0.00-0.029) ng/mL - EKG Data -: EKG Interpreted by Me EKG shows normal: sinus rhythm, axis (qrs 39), QRS complexes (qrsd 92), ST-T waves (no stemi) Rate: normal (79) - EKG Data When compared to previous EKG there are: no significant change - Radiology Data Radiology results: report reviewed CHEST 1 VIEW, 11/24/2018 9:23 PM INDICATION: Chest pain COMPARISON: None FINDINGS: Support devices: None Heart: The cardiac silhouette is upper limits of normal in size. Lungs/pleura: No focal airspace disease or significant pleural effusion is seen. Additional findings: No additional acute findings. IMPRESSION: 1. No evidence of acute cardiopulmonary process. - Medical Decision Making EKG unchanged 2. 2 negative cardiac enzymes with their pending. Elevated d- dimer with V/Q pending. Patient reports negative stress test with the last couple months and has a low heart score today. Doubt to Dr. Merino to discharge if V/Q is unremarkable - Differential Diagnosis NC, PE, stable angina, Critical Care Time: No Critical care attestation.: If time is entered above; I have spent that time in minutes in the direct care of this critically ill patient, excluding procedure time.
--- NOTE | 2018-11-25 05:00 | Nuclear Medicine Report ---
NM lung scan perf/vent INDICATION / CLINICAL INFORMATION: elevated ddimer, sob, cp. TECHNIQUE: Dose / Agent / Route: 5mCi technetium 99m MAA IV and 19.5mCi 133 Xe inhaled. COMPARISON: AP chest x-ray 11/24/2018 FINDINGS: Ventilation and perfusion images are normal. IMPRESSION: 1. Low probability for pulmonary embolus. Signer Name: Bradly Mclaughlin MD Signed: 11/25/2018 4:56 AM Workstation Name: [id number]
[2018-11-25 06:37] VITALS: BP 92/62
== END 2018-11-25 06:37 | disposition home or self-care (01) ==
LOC: ED 20:24
DX: R07.9 Chest pain, unspecified (principal); I10 Essential (primary) hypertension; I25.2 Old myocardial infarction; F32.9 Major depressive disorder, single episode, unspecified; Z95.5 Presence of coronary angioplasty implant and graft
CPT/HCPCS: 36415; 71045; 78582; 80048; 84484; 85025; 85379; 85610; 85730; 93005; 93010; 99285; A9540; A9558

== ENCOUNTER 2019-07-22 19:24 | Inpatient (IN) | payer MEDICAID ==
--- NOTE | 2019-07-22 19:38 | Emergency Department Report ---
ED Shortness of Breath HPI - General Stated Complaint: SOB Time Seen by Provider: 07/22/19 19:37 Source: patient, EMS Mode of arrival: Stretcher Limitations: No Limitations - History of Present Illness Initial Comments: Patient is a 63-year-old male that presents emergency room with complaints of shortness of breath and chest pain x1 hour. Patient states his chest pain is in the center of his chest and is nonradiating. Patient describes the pain as a squeezing and tightness. Patient states the pain is a 9 out of 10. Patient states that his shortness of breath and chest pain are better with rest and worse with exertion. Patient denies fever and chills. Patient denies cough. Patient states he has a past medical history of hypertension, hyperlipidemia and an LA x1 with CAD and a stent. Patient states he is compliant with his medications. Patient states he is currently at a local psychiatric facility, [place] for a suicidal ideation and psychiatric care. MD Complaint: shortness of breath, chest pain -: Sudden Severity: severe Pain Scale: 9 Quality: aching Consistency: constant Improves With: rest Worsens With: exertion Associated Symptoms: chest pain Treatments Prior to Arrival: none - Related Data Home Oxygen Therapy: No Home Medications Medication Instructions Recorded Confirmed Last Taken Carvedilol Phosphate [Carvedilol 10 mg PO DAILY 01/03/18 06/12/18 Unknown ER] lisinopriL [Prinivil] 10 mg PO BID 01/03/18 06/12/18 Unknown AtorvaSTATin 10 mg PO QHS 01/04/18 06/12/18 Unknown Allergies Allergy/AdvReac Type Severity Reaction Status Date / Time No Known Allergies Allergy Verified 06/05/18 10:14 ED Review of Systems ROS: Stated complaint: SOB Other details as noted in HPI Constitutional: denies: chills, fever Eyes: denies: eye pain, eye discharge, vision change ENT: denies: ear pain, throat pain Respiratory: shortness of breath, SOB with exertion, SOB at rest. denies: cough, wheezing Cardiovascular: chest pain. denies: palpitations Endocrine: no symptoms reported Gastrointestinal: denies: abdominal pain, nausea, diarrhea Genitourinary: denies: urgency, dysuria Musculoskeletal: denies: back pain, joint swelling, arthralgia Skin: denies: rash, lesions Neurological: denies: headache, weakness, paresthesias Psychiatric: denies: anxiety, depression Hematological/Lymphatic: denies: easy bleeding, easy bruising ED Past Medical Hx - Past Medical History Previous Medical History?: Yes Hx Hypertension: Yes Hx Heart Attack/AMI: Yes (stent x1) Hx Psychiatric Treatment: Yes (depression) - Surgical History Past Surgical History?: Yes Hx Coronary Stent: Yes - Family History Family history: no significant - Social History Smoking Status: Never Smoker Substance Use Type: None - Medications Home Medications: Home Medications Medication Instructions Recorded Confirmed Last Taken Type Carvedilol Phosphate [Carvedilol 10 mg PO DAILY 01/03/18 06/12/18 Unknown History ER] lisinopriL [Prinivil] 10 mg PO BID 01/03/18 06/12/18 Unknown History AtorvaSTATin 10 mg PO QHS 01/04/18 06/12/18 Unknown History ED Physical Exam - General Limitations: No Limitations General appearance: alert, in no apparent distress - Head Head exam: Present: atraumatic, normocephalic - Eye Eye exam: Present: normal appearance - ENT ENT exam: Present: mucous membranes moist - Neck Neck exam: Present: normal inspection - Respiratory Respiratory exam: Present: normal lung sounds bilaterally. Absent: respiratory distress, wheezes, chest wall tenderness - Cardiovascular Cardiovascular Exam: Present: regular rate, normal rhythm. Absent: systolic murmur, diastolic murmur, rubs, gallop - GI/Abdominal GI/Abdominal exam: Present: soft, normal bowel sounds - Rectal Rectal exam: Present: deferred - Extremities Exam Extremities exam: Present: normal inspection - Back Exam Back exam: Present: normal inspection - Neurological Exam Neurological exam: Present: alert, oriented X3 - Psychiatric Psychiatric exam: Present: normal affect, normal mood - Skin Skin exam: Present: warm, dry, intact, normal color. Absent: rash ED Course Vital Signs 07/22/19 07/22/19 07/22/19 19:50 20:00 20:15 Temperature 99.0 F Pulse Rate 85 84 82 Respiratory 30 H 30 H 27 H Rate Blood Pressure 105/60 105/60 105/55 Blood Pressure 105/60 [Left] O2 Sat by Pulse 95 96 97 Oximetry 07/22/19 07/22/19 07/22/19 20:30 20:45 21:00 Temperature Pulse Rate 83 83 83 Respiratory 21 22 21 Rate Blood Pressure 105/55 91/54 91/54 Blood Pressure [Left] O2 Sat by Pulse 96 96 97 Oximetry 07/22/19 07/22/19 07/22/19 21:15 21:30 21:45 Temperature Pulse Rate 83 78 74 Respiratory 26 H 20 21 Rate Blood Pressure 113/67 113/67 114/64 Blood Pressure [Left] O2 Sat by Pulse 97 98 98 Oximetry 07/22/19 07/22/19 07/22/19 22:00 22:15 22:30 Temperature Pulse Rate 77 78 79 Respiratory 24 29 H 26 H Rate Blood Pressure 114/64 120/67 120/67 Blood Pressure [Left] O2 Sat by Pulse 99 98 99 Oximetry 07/22/19 22:46 Temperature Pulse Rate 84 Respiratory 30 H Rate Blood Pressure 98/60 Blood Pressure [Left] O2 Sat by Pulse 98 Oximetry - Reevaluation(s) Reevaluation #1: I discussed all results with patient. I discussed plan of care with patient. Patient agrees with plan of care and admission. Patient to be admitted to the hospitalist service. 07/22/19 23:07 - Consultations Consultation #1: Hospitalist consulted for admission. Hospitalist to admit patient. Bridge orders placed. 07/22/19 23:07 ED Medical Decision Making - Lab Data Result diagrams: 07/22/19 19:53 07/22/19 19:53 - EKG Data -: EKG Interpreted by Tx EKG shows normal: sinus rhythm, axis, intervals, QRS complexes, ST-T waves Rate: normal - Radiology Data Radiology results: report reviewed CHEST 1 VIEW INDICATION / CLINICAL INFORMATION: Chest Pain. COMPARISON: Chest radiograph 11/24/2018 FINDINGS: SUPPORT DEVICES: None. HEART / MEDIASTINUM: No significant abnormality. LUNGS / PLEURA: There is suggestion of mild hazy airspace opacity throughout the right lung. The left lung is clear. No pleural effusion. No pneumothorax. ADDITIONAL FINDINGS: No significant additional findings. IMPRESSION: 1. There is suggestion of mild hazy airspace opacity within the right lung, nonspecific, correlate for possibility of infection. - Medical Decision Making Patient is a 63-year-old male that presents emergency room with complaints of chest pain or shortness of breath. Patient is currently at a psychiatric facility for psychiatric treatment for suicidal ideations. Patient was placed on a 1013 here and patient had a sitter from the psychiatric facility until the patient was admitted to the hospitalist service. Patient's labs are unremarkable except for elevated WBC. Patient's troponin negative. Patient EKG negative for acute findings. Patient's chest x-ray shows a possible pneumonia. Patient given antibiotics. Patient will require admission to rule out ACS. Patient has a significant cardiac history has a high heart and ARNOLDO score. - Differential Diagnosis cp. acs. sob Critical Care Time: Yes Critical care time in (mins) excluding proc time.: 35 Critical care attestation.: If time is entered above; I have spent that time in minutes in the direct care of this critically ill patient, excluding procedure time. Critical Care Time: 35 minutes ED Disposition Clinical Impression: SOB (shortness of breath) Pneumonia Qualifiers: Pneumonia type: due to unspecified organism Laterality: right Lung location: unspecified part of lung Qualified Code(s): J18.9 - Pneumonia, unspecified organism Chest pain Qualifiers: Chest pain type: unspecified Qualified Code(s): R07.9 - Chest pain, unspecified CAD (coronary artery disease) Qualifiers: Coronary Disease-Associated Artery/Lesion type: unspecified vessel or lesion type [place] vs. transplanted heart: [place] heart Associated angina: with unspecified angina Qualified Code(s): I25.119 - Atherosclerotic heart disease of [place] coronary artery with unspecified angina pectoris Disposition: OP ADMIT IP TO THIS HOSP Is pt being admited?: Yes Does the pt Need Aspirin: No Condition: Critical Time of Disposition: 22:37 Heart Score - HEART Score History: Moderately suspicious EKG: Non-specific Age: 45-65 Risk factors: > 3 risk factors or hx of atherosclerotic disease Troponin: < normal limit HEART Score: 5 ARNOLDO score - Arnoldo Score Age > 65: (0) No Aspirin use within the Past 7 Days: (1) Yes 3 or more CAD Risk Factors: (1) Yes 2 or more Angina events in past 24 hrs: (0) No Known CAD with more than 50% Stenosis: (1) Yes Elevated Cardiac Markers: (0) No ST Deviation Greater than 0.5mm: (0) No ARNOLDO Score: 3
[2019-07-22] MEDS ORDERED: ASPIRIN 325 MG TAB PO ONE (19:46)
[2019-07-22 20:27] LABS: Hematocrit 38.2 % (35.5-45.6); Hemoglobin 12.7 gm/dl (11.8-15.2); Mean Corpuscular HGB Conc 33 % (32-34); Mean Corpuscular Volume 88 fl (84-94); Platelet Count 212 K/mm3 (140-440); Red Blood Count 4.35 M/mm3 (3.65-5.03); Red Cell Distribution Width 14.1 % (13.2-15.2)
--- NOTE | 2019-07-22 20:31 | XRay Report ---
CHEST 1 VIEW INDICATION / CLINICAL INFORMATION: Chest Pain. COMPARISON: Chest radiograph 11/24/2018 FINDINGS: SUPPORT DEVICES: None. HEART / MEDIASTINUM: No significant abnormality. LUNGS / PLEURA: There is suggestion of mild hazy airspace opacity throughout the right lung. The left lung is clear. No pleural effusion. No pneumothorax. ADDITIONAL FINDINGS: No significant additional findings. IMPRESSION: 1. There is suggestion of mild hazy airspace opacity within the right lung, nonspecific, correlate fo r possibility of infection. Signer Name: Alfreda Gunderson MD Signed: 07/22/2019 8:27 PM Workstation Name: [id number]
[2019-07-22 20:49] LABS: Alanine Aminotransferase 25 units/L (7-56); Albumin 3.6 g/dL (3.9-5); BUN/Creatinine Ratio 17; Blood Urea Nitrogen 19 mg/dL (9-20); Hemolysis Index 11
[2019-07-22 22:01] LABS: Total Cells Counted 100
[2019-07-22 22:02] LABS: Band Neutrophils # (Manual) 0.2 K/mm3; Basophils % (Manual) 0 % (0.0-1.8); Eosinophils % (Manual) 0 % (0.0-4.3)
[2019-07-22 22:05] LABS: Anisocytosis Few
[2019-07-22 22:06] LABS: Platelet Estimate Consistent w Auto
[2019-07-22] MEDS ORDERED: ASPIRIN 325 MG TAB ONE (22:36)
[2019-07-22] MEDS ORDERED: CEFEPIME/NS 2 GM/100 ML 2 GM/100 ML BAG IV ONE (22:43)
--- NOTE | 2019-07-22 22:53 | History and Physical Report ---
History of Present Illness History of present illness: 63-year-old male with a history of hypertension, depression, coronary artery disease was sent from [place] today for evaluation of chest pain. Pain is in the epigastric area that started yesterday which he describes as squeezing pain, intermittent every 5 minutes, intensity 5/10, no radiation, cannot identify exacerbating factors. Admits to shortness of breath, no nausea vomiting, june phoresis or palpitation. He had a stress test at [place] 2-1/2 months ago. Patient has a nonproductive cough, no fever or chills, recent travel. Patient had ankle for suicidal ideation. Denies trauma to leg. he will be admitted for chest pain evaluation, pneumonia Review Of Systems: Constitutional: no weight loss, fever, chills Ears, eyes, nose, mouth and throat: no nasal congestion, no nasal discharge, no sinus pressure, blurry vision, diplopia Neck: No neck pain or rigidity. Cardiovascular: No palpitations Respiratory: + shortness of breath, cough Gastrointestinal: No hematochezia Genitourinary : no dysuria, frequency Musculoskeletal: no muscle ache , joint pain Integumentary: no rash, no pruritis Neurological: no parathesias, focal weakness Endocrine: no cold or heat intolerance, no polyuria or polydipsia Hematologic/Lymphatic: no easy bruising, no easy bleeding, no gland swelling Allergic/Immunologic: no urticaria, no angioedema. PAST MEDICAL HISTORY: hypertension, depression, coronary artery disease PAST SURGICAL HISTORY: None SOCIAL HISTORY: Denies alcohol, tobacco, drugs FAMILY HISTORY: Hypertension Medications and Allergies Allergies Allergy/AdvReac Type Severity Reaction Status Date / Time No Known Allergies Allergy Verified 06/05/18 10:14 Home Medications Medication Instructions Recorded Confirmed Last Taken Type Carvedilol Phosphate [Carvedilol 10 mg PO DAILY 01/03/18 06/12/18 Unknown History ER] lisinopriL [Prinivil] 10 mg PO BID 01/03/18 06/12/18 Unknown History AtorvaSTATin 10 mg PO QHS 01/04/18 06/12/18 Unknown History Active Meds: Active Medications Cefepime HCl (Cefepime/Ns 2 Gm/100 Ml) 2 gm in 100 mls @ 200 mls/hr IV ONCE ONE; Protocol Stop: 07/22/19 23:12 Exam - Physical Exam Narrative exam: Gen. appearance: Patient lying in bed, no apparent distress HEENT: Normocephalic, atraumatic, pupils equally round and reactive to light, extraocular movement intact, and no sclericterus,. No JVD or thyromegaly or nodule,neck supple, no carotid bruit ,mucous membranes moist, no exudate or erythema Heart: S1, S2, regular rate and rhythm Lungs: Crackles on right, breathing comfortable Abdomen: Positive bowel sounds, nontender, nondistended, no organomegaly Extremity: no edema, cyanosis, clubbing Skin: None infectious erythematous area on leg: No rash, nodules, warm, dry Neuro: Cranial nerves II to XII intact, speech is fluent, moves extremities, sensory intact - Constitutional Vitals: Temp Pulse Resp BP Pulse Ox 99.0 F 71 26 H 105/60 95 07/22/19 19:50 07/22/19 19:50 07/22/19 19:50 07/22/19 19:50 07/22/19 19:50 Results - Labs CBC & Chem 7: 07/23/19 04:32 07/23/19 04:32 Labs: Abnormal lab results 07/22/19 07/22/19 Range/Units 19:53 19:53 WBC 15.3 H (4.5-11.0) K/mm3 Seg Neuts % (Manual) 87.0 H (40.0-70.0) % Lymphocytes % (Manual) 5.0 L (13.4-35.0) % Seg Neutrophils # Man 13.3 H (1.8-7.7) K/mm3 Lymphocytes # (Manual) 0.8 L (1.2-5.4) K/mm3 Monocytes # (Manual) 1.1 H (0.0-0.8) K/mm3 Sodium 132 L (137-145) mmol/L Carbon Dioxide 20 L (22-30) mmol/L Glucose 133 H (75-100) mg/dL Total Protein 6.0 L (6.3-8.2) g/dL Albumin 3.6 L (3.9-5) g/dL - Imaging and Cardiology EKG: image reviewed Chest x-ray: report reviewed Assessment and Plan Assessment Chest pain/CAD Check cardiac enzymes, consult cardiology Start aspirin, Percocet Pneumonia Start Zosyn, follow cultures Suicidal ideation Continue 1013, placed with sitter Hypertension, now normotensive Hyponatremia, mild, start IV fluid DVT prophylaxis
[2019-07-22] MEDS ORDERED: ONDANSETRON 4 MG/2 ML INJ IV PRN (23:27)
[2019-07-22] MEDS ORDERED: oxyCODONE /ACETAMINOPHEN 5-325MG TAB PO PRN (23:27)
[2019-07-23 02:03] LABS: Creatine Kinase MB 1.1 ng/mL (0.0-4.0)
[2019-07-23 04:54] LABS: Basophils % (Auto) 0.2 % (0.0-1.8); Eosinophils % (Auto) 0.2 % (0.0-4.3); Hematocrit 38.7 % (35.5-45.6); Hemoglobin 13.1 gm/dl (11.8-15.2); Lymphocytes # (Auto) 1.2 K/mm3 (1.2-5.4); Lymphocytes % (Auto) 8.5 % (13.4-35.0); Mean Corpuscular HGB Conc 34 % (32-34); Mean Corpuscular Volume 88 fl (84-94); Monocytes # (Auto) 1.5 K/mm3 (0.0-0.8); Monocytes % (Auto) 10.5 % (0.0-7.3); Platelet Count 210 K/mm3 (140-440); Red Blood Count 4.41 M/mm3 (3.65-5.03); Red Cell Distribution Width 13.9 % (13.2-15.2)
[2019-07-23 05:14] LABS: BUN/Creatinine Ratio 16; Blood Urea Nitrogen 16 mg/dL (9-20); Calcium 9.2 mg/dL (8.4-10.2); Hemolysis Index 7
[2019-07-23 05:34] LABS: Creatine Kinase MB 1.2 ng/mL (0.0-4.0)
[2019-07-23] MEDS ORDERED: PIPERACIL-TAZO 2.25 GM/50 ML 2.25 GM/50 ML BAG IV SCH (06:00)
--- NOTE | 2019-07-23 08:09 | Progress Note ---
Assessment and Plan Assessment and plan: Patient is a 63 yo man from [facility] with a history of hypertension, depression and CAD s/p PCI who presents with chest pains. He had a stress test at [facility] 2-1/2 months ago per chart, results unknown Chest pain/CAD, TRES score calculated as 3: Check cardiac enzymes, consulted Cardiology Pneumonia with Sepsis, poa: on IV Zosyn, follow cultures Suicidal ideation: Continue 1013, placed with sitter Hypertension, now normotensive Hyponatremia, hypo-osm: mild, start IV fluid, monitor BMP closely DVT prophylaxis: lovenox History Interval history: Patient was seen and examined. Follow-up on current diagnosis of chest pains. Overnight uneventful as no events directly reported to me. Patient denies any chest pain, shortness breath, nausea/vomiting or severe headaches. Imaging, nursing note, chart, labs and old chart reviewed. Discussed with patient. Hospitalist Physical - Physical exam Narrative exam: Gen: WDWN, NAD, Awake, Alert, Orientated HEENT: NCAT, EOMI, PERRL, OP Clear Neck: supple, no adenopathy, no thyromegaly, no JVD CVS/Heart: RRR, normal S1S2, pulses present bilaterally Chest/Lungs: tachypneic, diminished bs bilaterally, Symmetrical chest expansion, good air entry bilaterally GI/Abdomen: soft, NTND, good bowel sounds, no guarding or rebound /Bladder: no suprapubic tenderness, no CVA or paraspinal tenderness Extermity/Skin: no c/c/e, no obvious rash MSK: FROM x 4 Neuro: CN 2-12 grossly intact, no new focal deficits Psych: calm - Constitutional Vitals: Temp Pulse Resp BP Pulse Ox 99.0 F 84 30 H 98/60 98 07/22/19 19:50 07/22/19 22:46 07/22/19 22:46 07/22/19 22:46 07/22/19 22:46 TRES score - Tres Score Age > 65: (0) No Aspirin use within the Past 7 Days: (1) Yes 3 or more CAD Risk Factors: (1) Yes 2 or more Angina events in past 24 hrs: (0) No Known CAD with more than 50% Stenosis: (1) Yes Elevated Cardiac Markers: (0) No ST Deviation Greater than 0.5mm: (0) No TRES Score: 3 Results - Labs CBC & Chem 7: 07/23/19 04:32 07/23/19 04:32 Labs: Laboratory Last Values WBC 14.6 K/mm3 (4.5-11.0) H 07/23/19 04:32 RBC 4.41 M/mm3 (3.65-5.03) 07/23/19 04:32 Hgb 13.1 gm/dl (11.8-15.2) 07/23/19 04:32 Hct 38.7 % (35.5-45.6) 07/23/19 04:32 MCV 88 fl (84-94) 07/23/19 04:32 MCH 30 pg (28-32) 07/23/19 04:32 MCHC 34 % (32-34) 07/23/19 04:32 RDW 13.9 % (13.2-15.2) 07/23/19 04:32 Plt Count 210 K/mm3 (140-440) 07/23/19 04:32 Lymph % (Auto) 8.5 % (13.4-35.0) L 07/23/19 04:32 [place] % (Auto) 10.5 % (0.0-7.3) H 07/23/19 04:32 Eos % (Auto) 0.2 % (0.0-4.3) 07/23/19 04:32 Baso % (Auto) 0.2 % (0.0-1.8) 07/23/19 04:32 Lymph # 1.2 K/mm3 (1.2-5.4) 07/23/19 04:32 [place] # 1.5 K/mm3 (0.0-0.8) H 07/23/19 04:32 Eos # 0.0 K/mm3 (0.0-0.4) 07/23/19 04:32 Baso # 0.0 K/mm3 (0.0-0.1) 07/23/19 04:32 Add Manual Diff Complete 07/22/19 19:53 Total Counted 100 07/22/19 19:53 Seg Neutrophils % 80.6 % (40.0-70.0) H 07/23/19 04:32 Seg Neuts % (Manual) 87.0 % (40.0-70.0) H 07/22/19 19:53 Band Neutrophils % 1.0 % 07/22/19 19:53 Lymphocytes % (Manual) 5.0 % (13.4-35.0) L 07/22/19 19:53 Reactive Lymphs % (Man) 0 % 07/22/19 19:53 Monocytes % (Manual) 7.0 % (0.0-7.3) 07/22/19 19:53 Eosinophils % (Manual) 0 % (0.0-4.3) 07/22/19 19:53 Basophils % (Manual) 0 % (0.0-1.8) 07/22/19 19:53 Metamyelocytes % 0 % 07/22/19 19:53 Myelocytes % 0 % 07/22/19 19:53 Promyelocytes % 0 % 07/22/19 19:53 Blast Cells % 0 % 07/22/19 19:53 Nucleated RBC % Not Reportable 07/22/19 19:53 Seg Neutrophils # 11.8 K/mm3 (1.8-7.7) H 07/23/19 04:32 Seg Neutrophils # Man 13.3 K/mm3 (1.8-7.7) H 07/22/19 19:53 Band Neutrophils # 0.2 K/mm3 07/22/19 19:53 Lymphocytes # (Manual) 0.8 K/mm3 (1.2-5.4) L 07/22/19 19:53 Abs React Lymphs (Man) 0.0 K/mm3 07/22/19 19:53 Monocytes # (Manual) 1.1 K/mm3 (0.0-0.8) H 07/22/19 19:53 Eosinophils # (Manual) 0.0 K/mm3 (0.0-0.4) 07/22/19 19:53 Basophils # (Manual) 0.0 K/mm3 (0.0-0.1) 07/22/19 19:53 Metamyelocytes # 0.0 K/mm3 07/22/19 19:53 Myelocytes # 0.0 K/mm3 07/22/19 19:53 Promyelocytes # 0.0 K/mm3 07/22/19 19:53 Blast Cells # 0.0 K/mm3 07/22/19 19:53 WBC Morphology Not Reportable 07/22/19 19:53 Hypersegmented Neuts Not Reportable 07/22/19 19:53 Hyposegmented Neuts Not Reportable 07/22/19 19:53 Hypogranular Neuts Not Reportable 07/22/19 19:53 Smudge Cells Not Reportable 07/22/19 19:53 Toxic Granulation Not Reportable 07/22/19 19:53 Toxic Vacuolation Not Reportable 07/22/19 19:53 Dohle Bodies Not Reportable 07/22/19 19:53 Pelger-Huet Anomaly Not Reportable 07/22/19 19:53 Angie Rods Not Reportable 07/22/19 19:53 Platelet Estimate Consistent w auto 07/22/19 19:53 Clumped Platelets Not Reportable 07/22/19 19:53 Plt Clumps, EDTA Not Reportable 07/22/19 19:53 Large Platelets Not Reportable 07/22/19 19:53 Giant Platelets Not Reportable 07/22/19 19:53 Platelet Satelliting Not Reportable 07/22/19 19:53 Plt Morphology Comment Not Reportable 07/22/19 19:53 RBC Morphology Not Reportable 07/22/19 19:53 Dimorphic RBCs Not Reportable 07/22/19 19:53 Polychromasia Not Reportable 07/22/19 19:53 Hypochromasia Not Reportable 07/22/19 19:53 Poikilocytosis Not Reportable 07/22/19 19:53 Anisocytosis Few 07/22/19 19:53 Microcytosis Not Reportable 07/22/19 19:53 Macrocytosis Not Reportable 07/22/19 19:53 Spherocytes Not Reportable 07/22/19 19:53 Pappenheimer Bodies Not Reportable 07/22/19 19:53 Sickle Cells Not Reportable 07/22/19 19:53 Target Cells Not Reportable 07/22/19 19:53 Tear Drop Cells Not Reportable 07/22/19 19:53 Ovalocytes Not Reportable 07/22/19 19:53 Helmet Cells Not Reportable 07/22/19 19:53 [place] Bodies Not Reportable 07/22/19 19:53 [place] Rings Not Reportable 07/22/19 19:53 Cookie Cells Not Reportable 07/22/19 19:53 Bite Cells Not Reportable 07/22/19 19:53 Crenated Cell Not Reportable 07/22/19 19:53 Elliptocytes Not Reportable 07/22/19 19:53 Acanthocytes (Spur) Not Reportable 07/22/19 19:53 Rouleaux Not Reportable 07/22/19 19:53 Hemoglobin C Crystals Not Reportable 07/22/19 19:53 Schistocytes Not Reportable 07/22/19 19:53 Malaria parasites Not Reportable 07/22/19 19:53 Praveen Bodies Not Reportable 07/22/19 19:53 Hem Pathologist Commnt No 07/22/19 19:53 Sodium 137 mmol/L (137-145) 07/23/19 04:32 Potassium 4.3 mmol/L (3.6-5.0) 07/23/19 04:32 Chloride 100.9 mmol/L (98-107) 07/23/19 04:32 Carbon Dioxide 25 mmol/L (22-30) 07/23/19 04:32 Anion Gap 15 mmol/L 07/23/19 04:32 BUN 16 mg/dL (9-20) 07/23/19 04:32 Creatinine 1.0 mg/dL (0.8-1.5) 07/23/19 04:32 Estimated GFR > 60 ml/min 07/23/19 04:32 BUN/Creatinine Ratio 16 % 07/23/19 04:32 Glucose 127 mg/dL (75-100) H 07/23/19 04:32 Calcium 9.2 mg/dL (8.4-10.2) 07/23/19 04:32 Total Bilirubin 0.50 mg/dL (0.1-1.2) 07/22/19 19:53 AST 22 units/L (5-40) 07/22/19 19:53 ALT 25 units/L (7-56) 07/22/19 19:53 Alkaline Phosphatase 71 units/L (35-129) 07/22/19 19:53 Total Creatine Kinase 46 units/L (55-170) L 07/23/19 04:32 CK-MB (CK-2) 1.2 ng/mL (0.0-4.0) 07/23/19 04:32 CK-MB (CK-2) Rel Index 2.6 (0-4) 07/23/19 04:32 Troponin T 0.014 ng/mL (0.00-0.029) 07/23/19 04:32 Total Protein 6.0 g/dL (6.3-8.2) L 07/22/19 19:53 Albumin 3.6 g/dL (3.9-5) L 07/22/19 19:53 Albumin/Globulin Ratio 1.5 % 07/22/19 19:53 Active Medications - Current Medications Current Medications: Generic Name Dose Route Start Last Admin Trade Name Freq PRN Reason Stop Dose Admin Acetaminophen 650 mg 07/22/19 23:27 Tylenol PO Q4H PRN Pain MILD(1-3)/Fever >100.5/GARCIA Aspirin 81 mg 07/23/19 10:00 Baby Aspirin PO QDAY [facility] Enoxaparin Sodium 40 mg 07/23/19 10:00 Enoxaparin SUB-Q QDAY@1000 [facility] Sodium Chloride 1,000 mls @ 125 mls/hr 07/22/19 23:45 Nacl 0.9% 1000 Ml IV DIRECT [facility] Piperacillin Sod/Tazobactam Sod 4.5 gm in 100 mls @ 200 mls/hr 07/23/19 06:00 Zosyn/Ns 4.5gm/100ml IV Q8HR [facility] Protocol Ondansetron HCl 4 mg 07/22/19 23:27 Zofran IV Q8H PRN Nausea And Vomiting Oxycodone/Acetaminophen 1 tab 07/22/19 23:27 Percocet 5/325 PO Q6H PRN Pain, Moderate (4-6) Sodium Chloride 10 ml 07/23/19 10:00 Sodium Chloride Flush Syringe 10 Ml IV BID FLORES Sodium Chloride 10 ml 07/22/19 23:27 Sodium Chloride Flush Syringe 10 Ml IV PRN PRN LINE FLUSH
[2019-07-23] MEDS ORDERED: SODIUM CHLORIDE 0.9% 1000 ML 1,000 ML ONE (08:18)
[2019-07-23] MEDS ORDERED: oxyCODONE /ACETAMINOPHEN 5-325MG TAB ONE (08:19)
[2019-07-23] MEDS ORDERED: CEFEPIME/NS 2 GM/100 ML 2 GM/100 ML BAG IV ONE (08:19)
[2019-07-23] MEDS: SODIUM CHLORIDE 0.9% 1000 ML 1,000 ML IV SCH (09:29)
[2019-07-23] MEDS ORDERED: ASPIRIN 81 MG TAB CHEW PO SCH (10:00)
[2019-07-23] MEDS ORDERED: ENOXAPARIN 30 MG/0.3 ML INJ SUB-Q SCH (10:00)
[2019-07-23] MEDS: ENOXAPARIN 40 MG/0.4 ML INJ SUB-Q SCH (11:12)
--- NOTE | 2019-07-23 11:15 | Consultation ---
History of Present Illness Consult date: 07/23/19 Requesting physician: MONIKA DIA Consult reason: chest pain History of present illness: The patient was [facility] to [facility] ER. He claims that he started experiencing shortness of breath as well as substernal chest tightness yesterday. There is no pleuritic component to his chest pain. His chest x-ray revealed right-sided infiltrates. He has a history of CAD, status post PCI. He claims that he was diagnosed with acute myocardial infarction about 3 months ago at [facility] during which he underwent coronary angiography but no intervention. Past History Past Medical History: acute [place], CAD, hypertension, hyperlipidemia Past Surgical History: PTCA Social history: denies: smoking, alcohol abuse Family history: denies: CAD Medications and Allergies Allergies Allergy/AdvReac Type Severity Reaction Status Date / Time No Known Allergies Allergy Verified 06/05/18 10:14 Home Medications Medication Instructions Recorded Confirmed Last Taken Type Carvedilol Phosphate [Carvedilol 10 mg PO DAILY 01/03/18 06/12/18 Unknown History ER] lisinopriL [Prinivil] 10 mg PO BID 01/03/18 06/12/18 Unknown History AtorvaSTATin 10 mg PO QHS 01/04/18 06/12/18 Unknown History Active Meds: Active Medications Acetaminophen (Tylenol) 650 mg PO Q4H PRN PRN Reason: Pain MILD(1-3)/Fever >100.5/GARCIA Aspirin (Baby Aspirin) 81 mg PO QDAY FLOR[facility] Enoxaparin Sodium (Enoxaparin) 40 mg SUB-Q QDAY@1000 FLORES Sodium Chloride (Nacl 0.9% 1000 Ml) 1,000 mls @ 125 mls/hr IV DIRECT FLORES Last Admin: 07/23/19 09:29 Dose: 125 mls/hr Documented by: Piperacillin Sod/Tazobactam Sod (Zosyn/Ns 4.5gm/100ml) 4.5 gm in 100 mls @ 200 mls/hr IV Q8HR FLORES; Protocol Ondansetron HCl (Zofran) 4 mg IV Q8H PRN PRN Reason: Nausea And Vomiting Oxycodone/Acetaminophen (Percocet 5/325) 1 tab PO Q6H PRN PRN Reason: Pain, Moderate (4-6) Sodium Chloride (Sodium Chloride Flush Syringe 10 Ml) 10 ml IV BID FLORES Sodium Chloride (Sodium Chloride Flush Syringe 10 Ml) 10 ml IV PRN PRN PRN Reason: LINE FLUSH Review of Systems Constitutional: no fever, no chills Ears, nose, mouth and throat: no ear pain, no ear discharge, no hoarseness, no sore throat Cardiovascular: chest pain, shortness of breath, no palpitations, no lightheadedness Respiratory: cough Gastrointestinal: no abdominal pain, no nausea, no vomiting, no diarrhea, no constipation Genitourinary Male: no dysuria, no urinary frequency Rectal: no pain, no bleeding Musculoskeletal: no neck stiffness, no neck pain, no myalgias Integumentary: no rash, no pruritis Neurological: no weakness, no parathesias, no numbness, no headaches Endocrine: no cold intolerance, no heat intolerance Hematologic/Lymphatic: no easy bruising, no easy bleeding Allergic/Immunologic: no urticaria, no wheezing Physical Examination Vital Signs Last Vital Signs Temp 99.0 F 07/22/19 19:50 Pulse 82 07/23/19 08:37 Resp 18 07/23/19 08:37 BP 117/63 07/23/19 08:37 Pulse Ox 100 07/23/19 08:37 General appearance: no acute distress HEENT: Positive: EOMI, Normocephaly, Mucus Membranes Moist Neck: Positive: neck supple, trachea midline Cardiac: Positive: Reg Rate and Rhythm, S1/S2 Lungs: Positive: clear to auscultation Neuro: Positive: Grossly Intact Abdomen: Positive: Unremarkable, Active Bowel Sounds. Negative: Tender Skin: Positive: Clear, Other (Erythema distal R leg) Musculoskeletal: Normal Range of Motion Extremities: Present: normal, Other. Absent: edema Results 07/23/19 04:32 07/23/19 04:32 Cardiac Enzymes 07/22/19 07/23/19 07/23/19 Range/Units 19:53 00:33 04:32 AST 22 (5-40) units/L CK-MB (CK-2) 1.1 1.2 (0.0-4.0) ng/mL CBC 07/22/19 07/23/19 Range/Units 19:53 04:32 WBC 15.3 H 14.6 H (4.5-11.0) K/mm3 RBC 4.35 4.41 (3.65-5.03) M/mm3 Hgb 12.7 13.1 (11.8-15.2) gm/dl Hct 38.2 38.7 (35.5-45.6) % Plt Count 212 210 (140-440) K/mm3 Lymph # 1.2 (1.2-5.4) K/mm3 [place] # 1.5 H (0.0-0.8) K/mm3 Eos # 0.0 (0.0-0.4) K/mm3 Baso # 0.0 (0.0-0.1) K/mm3 Comprehensive Metabolic Panel 07/22/19 07/23/19 Range/Units 19:53 04:32 Sodium 132 L 137 (137-145) mmol/L Potassium 4.0 4.3 (3.6-5.0) mmol/L Chloride 98.3 100.9 (98-107) mmol/L Carbon Dioxide 20 L 25 (22-30) mmol/L BUN 19 16 (9-20) mg/dL Creatinine 1.1 1.0 (0.8-1.5) mg/dL Glucose 133 H 127 H (75-100) mg/dL Calcium 9.0 9.2 (8.4-10.2) mg/dL AST 22 (5-40) units/L ALT 25 (7-56) units/L Alkaline Phosphatase 71 (35-129) units/L Total Protein 6.0 L (6.3-8.2) g/dL Albumin 3.6 L (3.9-5) g/dL - Imaging and Cardiology EKG: image reviewed EKG interpretations - Telemetry EKG Rhythm: Sinus Rhythm - EKG Sinus rhythms and dysrhythmias: sinus rhythm Myocardial infarction: septal [place] (old age or ind Assessment and Plan Resume cardiac medications. Obtain records from [facility]. Schedule Lexiscan stress test with nuclear imaging in a.m. - Patient Problems (1) Chest pain Current Visit: Yes Status: Acute Qualifiers: Chest pain type: unspecified Qualified Code(s): R07.9 - Chest pain, unspecified (2) Pneumonia Current Visit: Yes Status: Acute Qualifiers: Pneumonia type: due to unspecified organism Laterality: right Lung location: unspecified part of lung Qualified Code(s): J18.9 - Pneumonia, u nspecified organism (3) CAD (coronary artery disease) Current Visit: Yes Status: Chronic Qualifiers: Coronary Disease-Associated Artery/Lesion type: [place] artery [place] vs. transplanted heart: [place] heart Associated angina: with other forms of angina Qualified Code(s): I25.118 - Atherosclerotic heart disease of [place] coronary artery with other forms of angina pectoris (4) History of coronary artery stent placement Current Visit: Yes Status: Chronic (5) Hypertension Current Visit: Yes Status: Chronic Qualifiers: Hypertension type: essential hypertension Qualified Code(s): I10 - Essential (primary) hypertension
[2019-07-23 12:28] LABS: Bilirubin,Urine NEG (Negative); Blood,Urine NEG (Negative); Color,Urine Yellow (Yellow); Mucus,Urine FEW /HPF; Urobilinogen,Urine < 2.0 mg/dL (<2.0)
[2019-07-23 12:35] LABS: Bacteria,Urine 2+ /HPF (Negative); Hyaline Casts,Urine 1 /LPF
[2019-07-23 12:46] LABS: Amphetamine Screen,Urine PRESUMPTIVE NEGATIVE; Benzodiazepines Screen,Urine PRESUMPTIVE NEGATIVE; Cannabinoid Screen,Urine PRESUMPTIVE NEGATIVE; Cocaine Screen,Urine PRESUMPTIVE NEGATIVE; Methadone Screen,Urine PRESUMPTIVE NEGATIVE; Opiate Screen,Urine PRESUMPTIVE NEGATIVE
[2019-07-23] MEDS: PIPERACIL/TAZOBACTA 4.5/NS 100 4.5 GM/100 ML VIAL IV SCH ×2 (13:05→21:33)
[2019-07-23] MEDS: ACETAMINOPHEN 325 MG TAB PO PRN ×2 (16:45→21:30)
[2019-07-23] MEDS: METOPROLOL SUCCINATE XL 25 MG TAB PO SCH (21:31)
[2019-07-24] MEDS: PIPERACIL/TAZOBACTA 4.5/NS 100 4.5 GM/100 ML VIAL IV SCH ×5 (00:27→21:08)
[2019-07-24] MEDS: SODIUM CHLORIDE 0.9% 1000 ML 1,000 ML IV SCH (06:20)
[2019-07-24] MEDS ORDERED: REGADENOSON 0.4 MG/5 ML INJ IV ONE ×2 (07:57→08:17)
[2019-07-24] MEDS ORDERED: ASPIRIN 325 MG TAB PO SCH (10:00)
--- NOTE | 2019-07-24 13:09 | Progress Note ---
Assessment and Plan stress test negative, cp free, discharge back to [facility] if possible or home - Patient Problems (1) Chest pain Current Visit: Yes Status: Acute Qualifiers: Chest pain type: unspecified Qualified Code(s): R07.9 - Chest pain, unspecified (2) SOB (shortness of breath) Current Visit: Yes Status: Acute (3) CAD (coronary artery disease) Current Visit: Yes Status: Chronic Qualifiers: Coronary Disease-Associated Artery/Lesion type: [place] artery [place] vs. transplanted heart: [place] heart Associated angina: with other forms of angina Qualified Code(s): I25.118 - Atherosclerotic heart disease of [place] coronary artery with other forms of angina pectoris (4) Hypertension Current Visit: Yes Status: Chronic Qualifiers: Hypertension type: essential hypertension Qualified Code(s): I10 - Essential (primary) hypertension Subjective Date of service: 07/24/19 Principal diagnosis: cp Interval history: cp free Objective Vital Signs Temp Pulse Pulse Pulse Resp BP BP 07/24/19 12:18 117/70 07/24/19 12:17 119/69 07/24/19 12:16 114/70 07/24/19 12:15 116/70 07/24/19 12:13 126/67 07/24/19 12:11 127/77 07/24/19 12:10 118/75 07/24/19 12:05 120/73 07/24/19 08:23 84 84 16 07/24/19 04:41 98.8 F 75 20 111/74 07/23/19 23:35 100.2 F H 83 20 104/54 07/23/19 22:15 84 84 16 07/23/19 22:00 07/23/19 21:31 84 118/73 07/23/19 21:30 18 07/23/19 20:48 90 07/23/19 19:41 101.2 F H 84 22 118/73 07/23/19 16:45 16 07/23/19 16:40 102.6 F H 97 H 24 139/80 07/23/19 16:30 102.6 F H 96 H 24 139/80 07/23/19 15:51 87 14 135/51 07/23/19 15:41 135/51 07/23/19 14:21 102/53 07/23/19 14:15 102/53 07/23/19 13:51 91 H 18 102/53 07/23/19 13:41 87 16 102/53 07/23/19 13:31 78 16 102/53 07/23/19 13:21 81 15 102/53 Pulse Ox 07/24/19 12:18 07/24/19 12:17 07/24/19 12:16 07/24/19 12:15 07/24/19 12:13 07/24/19 12:11 07/24/19 12:10 07/24/19 12:05 07/24/19 08:23 96 07/24/19 04:41 91 07/23/19 23:35 94 07/23/19 22:15 96 07/23/19 22:00 97 07/23/19 21:31 07/23/19 21:30 07/23/19 20:48 07/23/19 19:41 96 07/23/19 16:45 07/23/19 16:40 94 07/23/19 16:30 91 07/23/19 15:51 94 07/23/19 15:41 07/23/19 14:21 100 07/23/19 14:15 07/23/19 13:51 98 07/23/19 13:41 97 07/23/19 13:31 97 07/23/19 13:21 97 - Physical Examination General: No Apparent Distress HEENT: Positive: EOMI, Normocephaly, Mucus Membranes Moist Neck: Positive: neck supple, trachea midline Cardiac: Positive: Reg Rate and Rhythm Lungs: Positive: clear to auscultation Neuro: Positive: Grossly Intact Abdomen: Positive: Unremarkable, Active Bowel Sounds. Negative: Tender Skin: Positive: Clear, Other (Erythema distal R leg) Musculoskeletal: Normal Range of Motion Extremities: Present: normal, Other (redness chronic ). Absent: edema - Imaging and Cardiology EKG: image reviewed Pharmacologic stress test: report reviewed (no signficant ischemia) - Telemetry EKG Rhythm: Sinus Rhythm - EKG Sinus rhythms and dysrhythmias: sinus rhythm Myocardial infarction: septal [place] (old age or ind
--- NOTE | 2019-07-24 13:17 | Discharge Summary ---
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 Patient was evaluated found to have right lower lobe infiltrate pneumonia. Patient a history of coronary artery disease and GA approximately 3 months ago cardiac cath no stent. Patient had negative Lexiscan here. Patient diagnosed with pneumonia noncardiac chest pain negative Lexiscan was stable for discharge. Disposition: - TO HOME OR SELFCARE Core Measure Documentation - Palliative Care Palliative Care/ Comfort Measures: Not Applicable - Core Measures Any of the following diagnoses?: none Exam - Physical Exam Narrative exam: #1 pneumonia we will continue patient at home on 5 days Levaquin to complete 5 days. #2 chest pain patient had a history of coronary disease negative Lexiscan. Negative cardiac enzymes patient stable to follow-up with zipper cutter on outpatient. #3 hypertension continues to have optimal control be discharged on metoprolol antiplatelet anti-lipid therapy. - Constitutional Vitals: Temp Pulse Resp BP Pulse Ox 98.8 F 84 16 117/70 96 07/24/19 04:41 07/24/19 08:23 07/24/19 08:23 07/24/19 12:18 07/24/19 08:23 General appearance: Present: no acute distress, well-nourished - EENT Eyes: Present: PERRL ENT: hearing intact, clear oral mucosa - Neck Neck: Present: supple, normal ROM - Respiratory Respiratory effort: normal Respiratory: bilateral: CTA - Cardiovascular Heart Sounds: Present: S1 & S2. Absent: rub, click - Extremities Extremities: pulses symmetrical, No edema Peripheral Pulses: within normal limits - Abdominal General gastrointestinal: Present: soft, non-tender, non-distended, normal bowel sounds Male genitourinary: Present: normal - Integumentary Integumentary: Present: clear, warm, dry - Musculoskeletal Musculoskeletal: gait normal, strength equal bilaterally - Psychiatric Psychiatric: appropriate mood/affect, intact judgment & insight - Neurologic Neurologic: CNII-XII intact, moves all extremities Plan Activity: no restrictions Diet: low cholesterol, low salt Prescriptions: [place] Carbonate [Eskalith] 300 mg PO TID #90 cap Gabapentin 100 mg PO Q8HR #30 cap ISOSORBIDE MONOnitrate [Imdur ER] 30 mg PO DAILY #30 levoFLOXacin [Levaquin TAB] 750 mg PO Q24HR #7 tablet AtorvaSTATin [Lipitor] 40 mg PO QHS #30 tablet Metoprolol Xl [Metoprolol SUCCINATE ER TAB] 12.5 mg PO BID #60 tablet Clopidogrel [Plavix] 75 mg PO DAILY #30 Sertraline [Zoloft] 25 mg PO QDAY #30
[2019-07-24] MEDS: METOPROLOL SUCCINATE XL 25 MG TAB PO SCH ×2 (13:22→21:07)
[2019-07-24] MEDS ORDERED: levoFLOXacin 750 MG TAB PO SCH (14:00)
[2019-07-24] MEDS: CLOPIDOGREL 75 MG TAB PO SCH (14:14)
[2019-07-24] MEDS: LITHIUM CARBONATE 300 MG CAP PO SCH ×2 (14:14→21:05)
[2019-07-24] MEDS: ENOXAPARIN 40 MG/0.4 ML INJ SUB-Q SCH (14:15)
[2019-07-24] MEDS: ASPIRIN EC 81 MG TAB PO SCH (14:18)
[2019-07-24] MEDS: GABAPENTIN 100 MG CAP PO SCH ×2 (14:20→21:05)
[2019-07-24] MEDS: carvediloL 6.25 MG TAB PO SCH ×2 (14:20→21:05)
[2019-07-24] MEDS: LISINOPRIL 10 MG TAB PO SCH ×2 (14:22→21:06)
--- NOTE | 2019-07-24 14:38 | Event Note ---
Date: 07/24/19 We will hold discharge. Upon exam as above patient had left lower extremity cellulitis. Wound tender. Wound treatment nurse and continue Warnern.
--- NOTE | 2019-07-24 22:09 | Treadmill Report ---
NUCLEAR PERFUSION STUDY REASON FOR STUDY: Chest pain. IMAGING PROTOCOL: The patient received 10 mCi of Technetium 99m Tetrofosmin for resting image and 28 mCi of Technetium 99m Tetrofosmin for stress imaging. The imaging for the whole procedure was completed 30-90 minutes following the initial injection of Technetium 99m Tetrofosmin. The SPECT imaging in the 180 degree arc was performed in the right anterior oblique projection. Computerized reconstruction of the images was performed for analysis. IMAGING RESULTS: Normal cavity size from stress to rest. Normal distribution of radionuclide in the anterior, inferior, septal, and apical regions. Gated SPECT, EF 58% with no wall motion abnormality. The patient infused Lexiscan with no EKG changes. SUMMARY: 1. Negative Lexiscan EKG. 2. Normal rest and stress myocardial perfusion scan. No significant ischemia. No wall motion abnormality. Gated SPECT, EF 58%. JOB# [id number] FIDEL/ALEJANDRO
[2019-07-25] MEDS: SODIUM CHLORIDE 0.9% 1000 ML 1,000 ML IV SCH ×3 (00:29→18:30)
[2019-07-25] MEDS: GABAPENTIN 100 MG CAP PO SCH ×3 (05:58→21:45)
[2019-07-25] MEDS: PIPERACIL/TAZOBACTA 4.5/NS 100 4.5 GM/100 ML VIAL IV SCH ×3 (05:58→21:45)
[2019-07-25] MEDS: ENOXAPARIN 40 MG/0.4 ML INJ SUB-Q SCH ×2 (08:51→10:43)
[2019-07-25] MEDS: carvediloL 6.25 MG TAB PO SCH ×2 (08:52→10:43)
[2019-07-25] MEDS: SERTRALINE 25 MG TAB PO SCH ×2 (08:56→10:44)
[2019-07-25] MEDS: LITHIUM CARBONATE 300 MG CAP PO SCH ×3 (08:56→20:37)
[2019-07-25] MEDS: CLOPIDOGREL 75 MG TAB PO SCH ×2 (08:57→10:44)
[2019-07-25] MEDS: ASPIRIN EC 81 MG TAB PO SCH ×2 (08:57→10:43)
[2019-07-25] MEDS: LISINOPRIL 10 MG TAB PO SCH (10:44)
[2019-07-25] MEDS: METOPROLOL SUCCINATE XL 25 MG TAB PO SCH (10:44)
--- NOTE | 2019-07-25 12:51 | Progress Note ---
Assessment and Plan - Patient Problems (1) Cellulitis of leg without foot, left Current Visit: Yes Status: Acute Plan to address problem: Cellulitis left leg. Much improved with 1 dose of vancomycin. Also reobtain blood cultures. Local wound care. Most likely source was a blister formation on the heel just below along with a weakened immune system. Continue treatment vancomycin local wound care. We will also rule out DVT because of unilateral leg swelling. Ultrasound pending. (2) Chest pain Current Visit: Yes Status: Acute Qualifiers: Chest pain type: unspecified Qualified Code(s): R07.9 - Chest pain, unspecified Plan to address problem: Secondary to right lower lobe pneumonia. This is also improved significantly. No shortness of breath. No fever. Clinically improved with less rhonchi on right side. Clinically clear stable. Patient had cardiac catheterization several months ago no stent. On this admission negative Lexiscan evaluated by cardiology stable from that standpoint. (3) Pneumonia Current Visit: Yes Status: Acute Qualifiers: Pneumonia type: due to unspecified organism Laterality: right Lung location: unspecified part of lung Qualified Code(s): J18.9 - Pneumonia, unspecified organism Plan to address problem: Right lower lobe pneumonia continues to improve. May follow-up with x-ray upon discharge but clinically patient doing better. But is keeping here now as the left lower extremity cellulitis. (4) SOB (shortness of breath) Current Visit: Yes Status: Acute Plan to address problem: Patient shortness of breath secondary to pneumonia has improved significantly. Heart disease is not playing any role at this time. (5) CAD (coronary artery disease) Current Visit: Yes Status: Chronic Qualifiers: Coronary Disease-Associated Artery/Lesion type: [place] artery [place] vs. transplanted heart: [place] heart Associated angina: with other forms of angina Qualified Code(s): I25.118 - Atherosclerotic heart disease of [place] coronary artery with other forms of angina pectoris Plan to address problem: Patient has coronary artery disease. Status post cardiac catheterization 3 months ago no stent. Negative Lexiscan this admission. (6) History of coronary artery stent placement Current Visit: Yes Status: Chronic (7) Hypertension Current Visit: Yes Status: Chronic Qualifiers: Hypertension type: essential hypertension Qualified Code(s): I10 - Ess ential (primary) hypertension Plan to address problem: Remains on low side. Will decrease Coreg to 3.25 mg and also decrease lisinopril to 5 mg. (8) Depression Current Visit: Yes Status: Acute Plan to address problem: Patient affect is no longer flat. Up in good spirits. Continue SSRI as well as lithium. History Interval history: Clinically patient is leg looks much improved. Patient was scheduled to go back to psych facility yesterday. Cardiac work-up was unremarkable. Patient had acute onset of left side leg cellulitis and swelling. Looks much improved today. Hospitalist Physical - Constitutional Vitals: Temp Pulse Resp BP Pulse Ox 98.5 F 73 18 92/47 98 07/25/19 03:28 07/25/19 10:00 07/25/19 03:28 07/25/19 03:28 07/25/19 10:00 General appearance: Present: no acute distress, well-nourished - EENT Eyes: Present: PERRL, EOM intact ENT: hearing intact, clear oral mucosa, dentition normal, no oropharyngeal erythema, no poor dentition, no thrush - Neck Neck: Present: supple, normal ROM - Respiratory Respiratory effort: normal Respiratory: bilateral: CTA - Cardiovascular Rhythm: regular Heart Sounds: Present: S1 & S2 - Extremities Extremities: no ischemia, pulses intact, pulses symmetrical Extremity abnormal: other (Patient with left leg edema and cellulitis. Much less warm today. Patient has a center area of blistering and ruborous formation. What is improved is the peripheral erythema is much improved with less angry and no longer warm to touch.) - Abdominal General gastrointestinal: soft, non-tender, non-distended, distended, normal bowel sounds, no hepatomegaly, no splenomegaly - Integumentary Integumentary: Present: clear, warm, erythema - Psychiatric Psychiatric: appropriate mood/affect, intact judgment & insight, memory intact, cooperative - Neurologic Neurologic: CNII-XII intact, moves all extremities TRES score - Tres Score Age > 65: (0) No Aspirin use within the Past 7 Days: (1) Yes 3 or more CAD Risk Factors: (1) Yes 2 or more Angina events in past 24 hrs: (0) No Known CAD with more than 50% Stenosis: (1) Yes Elevated Cardiac Markers: (0) No ST Deviation Greater than 0.5mm: (0) No TRES Score: 3 Results - Labs CBC & Chem 7: 07/23/19 04:32 07/23/19 04:32 Labs: Laboratory Last Values WBC 14.6 K/mm3 (4.5-11.0) H 07/23/19 04:32 RBC 4.41 M/mm3 (3.65-5.03) 07/23/19 04:32 Hgb 13.1 gm/dl (11.8-15.2) 07/23/19 04:32 Hct 38.7 % (35.5-45.6) 07/23/19 04:32 MCV 88 fl (84-94) 07/23/19 04:32 MCH 30 pg (28-32) 07/23/19 04:32 MCHC 34 % (32-34) 07/23/19 04:32 RDW 13.9 % (13.2-15.2) 07/23/19 04:32 Plt Count 210 K/mm3 (140-440) 07/23/19 04:32 Lymph % (Auto) 8.5 % (13.4-35.0) L 07/23/19 04:32 [place] % (Auto) 10.5 % (0.0-7.3) H 07/23/19 04:32 Eos % (Auto) 0.2 % (0.0-4.3) 07/23/19 04:32 Baso % (Auto) 0.2 % (0.0-1.8) 07/23/19 04:32 Lymph # 1.2 K/mm3 (1.2-5.4) 07/23/19 04:32 [place] # 1.5 K/mm3 (0.0-0.8) H 07/23/19 04:32 Eos # 0.0 K/mm3 (0.0-0.4) 07/23/19 04:32 Baso # 0.0 K/mm3 (0.0-0.1) 07/23/19 04:32 Add Manual Diff Complete 07/22/19 19:53 Total Counted 100 07/22/19 19:53 Seg Neutrophils % 80.6 % (40.0-70.0) H 07/23/19 04:32 Seg Neuts % (Manual) 87.0 % (40.0-70.0) H 07/22/19 19:53 Band Neutrophils % 1.0 % 07/22/19 19:53 Lymphocytes % (Manual) 5.0 % (13.4-35.0) L 07/22/19 19:53 Reactive Lymphs % (Man) 0 % 07/22/19 19:53 Monocytes % (Manual) 7.0 % (0.0-7.3) 07/22/19 19:53 Eosinophils % (Manual) 0 % (0.0-4.3) 07/22/19 19:53 Basophils % (Manual) 0 % (0.0-1.8) 07/22/19 19:53 Metamyelocytes % 0 % 07/22/19 19:53 Myelocytes % 0 % 07/22/19 19:53 Promyelocytes % 0 % 07/22/19 19:53 Blast Cells % 0 % 07/22/19 19:53 Nucleated RBC % Not Reportable 07/22/19 19:53 Seg Neutrophils # 11.8 K/mm3 (1.8-7.7) H 07/23/19 04:32 Seg Neutrophils # Man 13.3 K/mm3 (1.8-7.7) H 07/22/19 19:53 Band Neutrophils # 0.2 K/mm3 07/22/19 19:53 Lymphocytes # (Manual) 0.8 K/mm3 (1.2-5.4) L 07/22/19 19:53 Abs React Lymphs (Man) 0.0 K/mm3 07/22/19 19:53 Monocytes # (Manual) 1.1 K/mm3 (0.0-0.8) H 07/22/19 19:53 Eosinophils # (Manual) 0.0 K/mm3 (0.0-0.4) 07/22/19 19:53 Basophils # (Manual) 0.0 K/mm3 (0.0-0.1) 07/22/19 19:53 Metamyelocytes # 0.0 K/mm3 07/22/19 19:53 Myelocytes # 0.0 K/mm3 07/22/19 19:53 Promyelocytes # 0.0 K/mm3 07/22/19 19:53 Blast Cells # 0.0 K/mm3 07/22/19 19:53 WBC Morphology Not Reportable 07/22/19 19:53 Hypersegmented Neuts Not Reportable 07/22/19 19:53 Hyposegmented Neuts Not Reportable 07/22/19 19:53 Hypogranular Neuts Not Reportable 07/22/19 19:53 Smudge Cells Not Reportable 07/22/19 19:53 Toxic Granulation Not Reportable 07/22/19 19:53 Toxic Vacuolation Not Reportable 07/22/19 19:53 Dohle Bodies Not Reportable 07/22/19 19:53 Pelger-Huet Anomaly Not Reportable 07/22/19 19:53 Angie Rods Not Reportable 07/22/19 19:53 Platelet Estimate Consistent w auto 07/22/19 19:53 Clumped Platelets Not Reportable 07/22/19 19:53 Plt Clumps, EDTA Not Reportable 07/22/19 19:53 Large Platelets Not Reportable 07/22/19 19:53 Giant Platelets Not Reportable 07/22/19 19:53 Platelet Satelliting Not Reportable 07/22/19 19:53 Plt Morphology Comment Not Reportable 07/22/19 19:53 RBC Morphology Not Reportable 07/22/19 19:53 Dimorphic RBCs Not Reportable 07/22/19 19:53 Polychromasia Not Reportable 07/22/19 19:53 Hypochromasia Not Reportable 07/22/19 19:53 Poikilocytosis Not Reportable 07/22/19 19:53 Anisocytosis Few 07/22/19 19:53 Microcytosis Not Reportable 07/22/19 19:53 Macrocytosis Not Reportable 07/22/19 19:53 Spherocytes Not Reportable 07/22/19 19:53 Pappenheimer Bodies Not Reportable 07/22/19 19:53 Sickle Cells Not Reportable 07/22/19 19:53 Target Cells Not Reportable 07/22/19 19:53 Tear Drop Cells Not Reportable 07/22/19 19:53 Ovalocytes Not Reportable 07/22/19 19:53 Helmet Cells Not Reportable 07/22/19 19:53 [place] Bodies Not Reportable 07/22/19 19:53 [place] Rings Not Reportable 07/22/19 19:53 Cookie Cells Not Reportable 07/22/19 19:53 Bite Cells Not Reportable 07/22/19 19:53 Crenated Cell Not Reportable 07/22/19 19:53 Elliptocytes Not Reportable 07/22/19 19:53 Acanthocytes (Spur) Not Reportable 07/22/19 19:53 Rouleaux Not Reportable 07/22/19 19:53 Hemoglobin C Crystals Not Reportable 07/22/19 19:53 Schistocytes Not Reportable 07/22/19 19:53 Malaria parasites Not Reportable 07/22/19 19:53 Praveen Bodies Not Reportable 07/22/19 19:53 Hem Pathologist Commnt No 07/22/19 19:53 Sodium 137 mmol/L (137-145) 07/23/19 04:32 Potassium 4.3 mmol/L (3.6-5.0) 07/23/19 04:32 Chloride 100.9 mmol/L (98-107) 07/23/19 04:32 Carbon Dioxide 25 mmol/L (22-30) 07/23/19 04:32 Anion Gap 15 mmol/L 07/23/19 04:32 BUN 16 mg/dL (9-20) 07/23/19 04:32 Creatinine 1.0 mg/dL (0.8-1.5) 07/23/19 04:32 Estimated GFR > 60 ml/min 07/23/19 04:32 BUN/Creatinine Ratio 16 % 07/23/19 04:32 Glucose 127 mg/dL (75-100) H 07/23/19 04:32 Calcium 9.2 mg/dL (8.4-10.2) 07/23/19 04:32 Total Bilirubin 0.50 mg/dL (0.1-1.2) 07/22/19 19:53 AST 22 units/L (5-40) 07/22/19 19:53 ALT 25 units/L (7-56) 07/22/19 19:53 Alkaline Phosphatase 71 units/L (35-129) 07/22/19 19:53 Total Creatine Kinase 46 units/L (55-170) L 07/23/19 04:32 CK-MB (CK-2) 1.2 ng/mL (0.0-4.0) 07/23/19 04:32 CK-MB (CK-2) Rel Index 2.6 (0-4) 07/23/19 04:32 Troponin T 0.014 ng/mL (0.00-0.029) 07/23/19 04:32 Total Protein 6.0 g/dL (6.3-8.2) L 07/22/19 19:53 Albumin 3.6 g/dL (3.9-5) L 07/22/19 19:53 Albumin/Globulin Ratio 1.5 % 07/22/19 19:53 Urine Color Yellow (Yellow) 07/23/19 11:32 Urine Turbidity Clear (Clear) 07/23/19 11:32 Urine pH 6.0 (5.0-7.0) 07/23/19 11:32 Ur Specific [place] 1.014 (1.003-1.030) 07/23/19 11:32 Urine Protein 30 mg/dl mg/dL (Negative) 07/23/19 11:32 Urine Glucose (UA) >=500 mg/dL (Negative) 07/23/19 11:32 Urine Ketones Neg mg/dL (Negative) 07/23/19 11:32 Urine Blood Neg (Negative) 07/23/19 11:32 Urine Nitrite Neg (Negative) 07/23/19 11:32 Urine Bilirubin Neg (Negative) 07/23/19 11:32 Urine Urobilinogen < 2.0 mg/dL (<2.0) 07/23/19 11:32 Ur Leukocyte Esterase Neg (Negative) 07/23/19 11:32 Urine WBC (Auto) 12.0 /HPF (0.0-6.0) H 07/23/19 11:32 Urine RBC (Auto) 3.0 /HPF (0.0-6.0) 07/23/19 11:32 U Epithel Cells (Auto) 2.0 /HPF (0-13.0) 07/23/19 11:32 Urine Bacteria (Auto) 2+ /HPF (Negative) 07/23/19 11:32 Hyaline Casts 1 /LPF 07/23/19 11:32 Urine Mucus Few /HPF 07/23/19 11:32 Urine Opiates Screen Presumptive negative 07/22/19 Unknown Urine Methadone Screen Presumptive negative 07/22/19 Unknown Ur Barbiturates Screen Presumptive negative 07/22/19 Unknown Ur Phencyclidine Scrn Presumptive negative 07/22/19 Unknown Ur Amphetamines Screen Presumptive negative 07/22/19 Unknown U Benzodiazepines Scrn Presumptive negative 07/22/19 Unknown Urine Cocaine Screen Presumptive negative 07/22/19 Unknown U Marijuana (THC) Screen Presumptive negative 07/22/19 Unknown Drugs of Abuse Note Disclamer 07/22/19 Unknown Sawant/IV: Voiding Method Urinal IV Catheter Type [Left Arm] Peripheral IV IV Catheter Type [Right Peripheral IV Forearm] Active Medications - Current Medications Current Medications: Generic Name Dose Route Start Last Admin Trade Name Freq PRN Reason Stop Dose Admin Acetaminophen 650 mg 07/22/19 23:27 07/23/19 21:30 Tylenol PO 650 mg Q4H PRN Administration Pain MILD(1-3)/Fever >100.5/GARCIA Aspirin 81 mg 07/24/19 14:00 07/25/19 10:43 Halfprin Ec PO Not Given QDAY [facility] Atorvastatin Calcium 40 mg 07/23/19 22:00 07/24/19 21:05 Lipitor PO 40 mg QHS FLORES Administration Carvedilol 6.25 mg 07/24/19 14:00 07/25/19 10:43 Coreg PO Not Given BID [facility] Clopidogrel Bisulfate 75 mg 07/24/19 14:00 07/25/19 10:44 Plavix PO Not Given DAILY [facility] Enoxaparin Sodium 40 mg 07/23/19 10:00 07/25/19 10:43 Enoxaparin SUB-Q Not Given QDAY@1000 [facility] Gabapentin 100 mg 07/24/19 14:00 07/25/19 05:58 Gabapentin PO 100 mg Q8HR FLORES Administration Sodium Chloride 1,000 mls @ 125 mls/hr 07/22/19 23:45 07/25/19 08:58 Nacl 0.9% 1000 Ml IV 125 mls/hr DIRECT FLORES Administration Piperacillin Sod/Tazobactam Sod 4.5 gm in 100 mls @ 200 mls/hr 07/23/19 06:00 07/25/19 05:58 Zosyn/Ns 4.5gm/100ml IV 200 mls/hr Q8HR FLORES Administration Protocol Isosorbide Mononitrate 30 mg 07/24/19 14:00 07/25/19 10:43 Imdur PO Not Given DAILY [facility] Lisinopril 10 mg 07/26/19 10:00 Zestril PO QDAY [facility] [place] Carbonate 300 mg 07/24/19 14:00 07/25/19 08:56 Eskalith PO 300 mg TID FLORES Administration Ondansetron HCl 4 mg 07/22/19 23:27 Zofran IV Q8H PRN Nausea And Vomiting Oxycodone/Acetaminophen 1 tab 07/22/19 23:27 Percocet 5/325 PO Q6H PRN Pain, Moderate (4-6) Sertraline HCl 25 mg 07/25/19 10:00 07/25/19 10:44 Zoloft PO Not Given QDAY FLORES Sodium Chloride 10 ml 07/23/19 10:00 07/24/19 21:04 Sodium Chloride Flush Syringe 10 Ml IV 10 ml BID FLORES Administration Sodium Chloride 10 ml 07/22/19 23:27 Sodium Chloride Flush Syringe 10 Ml IV PRN PRN LINE FLUSH
[2019-07-25] MEDS: carvediloL 3.125 MG TAB PO SCH (21:44)
[2019-07-26] MEDS: GABAPENTIN 100 MG CAP PO SCH ×3 (05:24→21:28)
[2019-07-26] MEDS: PIPERACIL/TAZOBACTA 4.5/NS 100 4.5 GM/100 ML VIAL IV SCH ×3 (05:24→21:27)
[2019-07-26] MEDS: SODIUM CHLORIDE 0.9% 1000 ML 1,000 ML IV SCH (05:29)
[2019-07-26] MEDS: LITHIUM CARBONATE 300 MG CAP PO SCH ×3 (08:51→21:28)
[2019-07-26] MEDS: CLOPIDOGREL 75 MG TAB PO SCH (09:19)
[2019-07-26] MEDS: LISINOPRIL 5 MG TAB PO SCH (09:19)
[2019-07-26] MEDS: ASPIRIN EC 81 MG TAB PO SCH (09:20)
[2019-07-26] MEDS: SERTRALINE 25 MG TAB PO SCH (09:20)
[2019-07-26] MEDS: ENOXAPARIN 40 MG/0.4 ML INJ SUB-Q SCH (09:21)
[2019-07-26] MEDS: carvediloL 3.125 MG TAB PO SCH ×2 (09:26→21:28)
[2019-07-26] MEDS ORDERED: LISINOPRIL 10 MG TAB PO SCH (10:00)
--- NOTE | 2019-07-26 10:31 | Vascular Lab Report ---
DUPLEX DOPPLER LOWER EXTREMITY VEINS, LEFT INDICATION: left leg swelling. TECHNIQUE: Duplex doppler imaging was performed through the veins of the left lower extremity using venous compr ession and other maneuvers. COMPARISON: No relevant prior imaging study available. FINDINGS: Left Common femoral vein: Negative. Left Superficial femoral vein: Negative. Left Popliteal vein: Negative. Left Calf veins: Negative. Additional findings: None.. IMPRESSION: 1. No sonographic evidence for DVT in the left lower extremity. Signer Name: Dimitri Hansen MD Signed: 07/26/2019 10:26 AM Workstation Name: [id number]
--- NOTE | 2019-07-26 14:36 | Discharge Summary ---
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 Pain is in the epigastric area that started yesterday which he describes as squeezing pain, intermittent every 5 minutes, intensity 5/10, no radiation, cannot identify exacerbating factors. Admits to shortness of breath, no nausea vomiting, diaphoresis or palpitation. He had a stress test at [place] 2-1/2 months ago. Patient has a nonproductive cough, no fever or chills, recent travel. Patient had ankle for suicidal ideation. Denies trauma to leg. he will be admitted for chest pain evaluation, pneumonia - Patient Problems (1) Cellulitis of leg without foot, left Current Visit: Yes Status: Acute Plan to address problem: Cellulitis left leg. Much improved with 1 dose of vancomycin. Also reobtain blood cultures. Local wound care. Most likely source was a blister formation on the heel just below along with a weakened immune system. Continue treatment vancomycin local wound care. We will also rule out DVT because of unilateral leg swelling. Ultrasound with no DVT. Plan was for discharge unsure why the patient did not leave. Ice has gone back to the inpatient psych facility. Patient also received some Lasix with some improvement in the swelling. Was seen by infectious control recommended to be discharged on Bactrim and follow-up with them outpatient. (2) Chest pain Current Visit: Yes Status: Acute Qualifiers: Chest pain type: unspecified Qualified Code(s): R07.9 - Chest pain, unspecified Plan to address problem: Secondary to right lower lobe pneumonia. This is also improved significantly. No shortness of breath. No fever. Clinically improved with less rhonchi on right side. Clinically clear stable. Patient had cardiac catheterization several months ago no stent. On this admission negative Lexiscan evaluated by cardiology stable from that standpoint. (3) SEPSIS Secondary to Pneumonia Current Visit: Yes Status: Acute Qualifiers: Pneumonia type: due to unspecified organism Laterality: right Lung location: unspecified part of lung Qualified Code(s): J18.9 - Pneumonia, unspecified organism Plan to address problem: Right lower lobe pneumonia continues to improve. May follow-up with x-ray upon discharge but clinically patient doing better. But is keeping here now as the left lower extremity cellulitis. (4) SOB (shortness of breath) Current Visit: Yes Status: Acute Plan to address problem: Patient shortness of breath secondary to pneumonia has improved significantly. Heart disease is not playing any role at this time. (5) CAD (coronary artery disease) Current Visit: Yes Status: Chronic Qualifiers: Coronary Disease-Associated Artery/Lesion type: [place] artery [place] vs. transplanted heart: [place] heart Associated angina: with other forms of angina Qualified Code(s): I25.118 - Atherosclerotic heart disease of [place] coronary artery with other forms of angina pectoris Plan to address problem: Patient has coronary artery disease. Status post cardiac catheterization 3 months ago no stent. Negative Lexiscan this admission. (6) History of coronary artery stent placement Current Visit: Yes Status: Chronic (7) Hypertension Current Visit: Yes Status: Chronic Qualifiers: Hypertension type: essential hypertension Qualified Code(s): I10 - Essential (primary) hypertension Plan to address problem: Remains on low side. Will decrease Coreg to 3.25 mg and also decrease lisinopril to 5 mg. (8) Depression Current Visit: Yes Status: Acute Plan to address problem: Patient affect is no longer flat. Up in good spirits. Continue SSRI as well as lithium. Patient was cleared by psychiatry for discharge. Denies any suicidal ideation at this point. Disposition: [id number]/[id number] [facility] C[facility] Time spent for discharge: 35 mins Core Measure Documentation - Palliative Care Palliative Care/ Comfort Measures: Not Applicable - Core Measures Any of the following diagnoses?: none Exam - Physical Exam Narrative exam: General appearance: Present: no acute distress, well-nourished - EENT Eyes: Present: PERRL, EOM intact ENT: hearing intact, clear oral mucosa, dentition normal, no oropharyngeal erythema, no poor dentition, no thrush - Neck Neck: Present: supple, normal ROM - Respiratory Respiratory effort: normal Respiratory: bilateral: CTA - Cardiovascular Rhythm: regular Heart Sounds: Present: S1 & S2 - Extremities Extremities: no ischemia, pulses intact, pulses symmetrical Extremity abnormal: other (Patient with left leg edema and cellulitis. Much less warm today. Patient has a center area of blistering and ruborous formation. What is improved is the peripheral erythema is much improved with less angry and no longer warm to touch.) - Abdominal General gastrointestinal: soft, non-tender, non-distended, distended, normal bowel sounds, no hepatomegaly, no splenomegaly - Integumentary Integumentary: Present: clear, warm, erythema. left lower ext Edema +2 - Psychiatric Psychiatric: appropriate mood/affect, intact judgment & insight, memory intact, cooperative - Neurologic Neurologic: CNII-XII intact, moves all extremities - Constitutional Vitals: Temp Pulse Resp BP Pulse Ox 98.2 F 73 18 125/72 94 07/26/19 11:35 07/26/19 11:35 07/26/19 11:35 07/26/19 11:35 07/26/19 13:53 Plan Activity: advance as tolerated, fall precautions Diet: low fat Special Instructions: record daily weights, record daily BP diary Follow up with: PRIMARY CARE, [Primary Care Provider] - 7 Days Forms: Discharge Signature Page Prescriptions: AtorvaSTATin [Lipitor] 40 mg PO QHS #30 tablet Sulfamethoxazole/Trimethoprim [Bactrim 400-80 mg Tablet] 1 each PO BID #14 tablet [place] Carbonate [Eskalith] 300 mg PO TID #90 cap Gabapentin 100 mg PO Q8HR #30 cap ISOSORBIDE MONOnitrate [Imdur ER] 30 mg PO DAILY #30 tablet levoFLOXacin [Levaquin TAB] 750 mg PO Q24HR #7 tablet Metoprolol Xl [Metoprolol SUCCINATE ER TAB] 12.5 mg PO BID #60 tablet Clopidogrel [Plavix] 75 mg PO DAILY #30 tablet Sertraline [Zoloft] 25 mg PO QDAY #30 tablet
[2019-07-27] MEDS: GABAPENTIN 100 MG CAP PO SCH ×3 (05:10→21:32)
[2019-07-27 08:01] LABS: Hematocrit 35.5 % (35.5-45.6); Mean Corpuscular HGB Conc 34 % (32-34); Mean Corpuscular Volume 88 fl (84-94); Platelet Count 310 K/mm3 (140-440); Red Blood Count 4.02 M/mm3 (3.65-5.03)
--- NOTE | 2019-07-27 08:10 | Progress Note ---
Assessment and Plan Assessment and plan: 63-year-old male with a history of hypertension, depression, coronary artery disease was sent from [facility] today for evaluation of chest pain. Pain is in the epigastric area that started yesterday which he describes as squeezing pain, intermittent every 5 minutes, intensity 5/10, no radiation, cannot identify exacerbating factors. Admits to shortness of breath, no nausea vomiting, diaphoresis or palpitation. He had a stress test at [facility] 2-1/2 months ago. Patient has a nonproductive cough, no fever or chills, recent travel. Patient had ankle for suicidal ideation. Denies trauma to leg. he will be admitted for chest pain evaluation, pneumonia - Patient Problems (1) Cellulitis of leg without foot, left Current Visit: Yes Status: Acute Plan to address problem: Cellulitis left leg. Much improved with 1 dose of vancomycin. Also reobtain blood cultures. Local wound care. Most likely source was a blister formation on the heel just below along with a weakened immune system. Continue treatment vancomycin local wound care. We will also rule out DVT because of unilateral leg swelling. Ultrasound with no DVT. Plan was for discharge unsure why the patient did not leave. Ice has gone back to the inpatient psych facility. (2) Chest pain Current Visit: Yes Status: Acute Qualifiers: Chest pain type: unspecified Qualified Code(s): R07.9 - Chest pain, unspecified Plan to address problem: Secondary to right lower lobe pneumonia. This is also improved significantly. No shortness of breath. No fever. Clinically improved with less rhonchi on right side. Clinically clear stable. Patient had cardiac catheterization s everal months ago no stent. On this admission negative Lexiscan evaluated by cardiology stable from that standpoint. (3) Pneumonia Current Visit: Yes Status: Acute Qualifiers: Pneumonia type: due to unspecified organism Laterality: right Lung location: unspecified part of lung Qualified Code(s): J18.9 - Pneumonia, uns pecified organism Plan to address problem: Right lower lobe pneumonia continues to improve. May follow-up with x-ray upon discharge but clinically patient doing better. But is keeping here now as the left lower extremity cellulitis. (4) SOB (shortness of breath) Current Visit: Yes Status: Acute Plan to address problem: Patient shortness of breath secondary to pneumonia has improved significantly. Heart disease is not playing any role at this time. (5) CAD (coronary artery disease) Current Visit: Yes Status: Chronic Qualifiers: Coronary Disease-Associated Artery/Lesion type: [place] artery [place] vs. transplanted heart: [place] heart Associated angina: with other forms of angina Qualified Code(s): I25.118 - Atherosclerotic heart disease of [place] coronary artery with other forms of angina pectoris Plan to address problem: Patient has coronary artery disease. Status post cardiac catheterization 3 months ago no stent. Negative Lexiscan this admission. (6) History of coronary artery stent placement Current Visit: Yes Status: Chronic (7) Hypertension Current Visit: Yes Status: Chronic Qualifiers: Hypertension type: essential hypertension Qualified Code(s): I10 - Essential (primary) hypertension Plan to address problem: Remains on low side. Will decrease Coreg to 3.25 mg and also decrease lisinopril to 5 mg. (8) Depression Current Visit: Yes Status: Acute Plan to address problem: Patient affect is no longer flat. Up in good spirits. Continue SSRI as well as lithium. History Interval history: Patient seen and examined today reports still redness of the left lower extremity which is improving. Ultrasound Doppler reviewed with no DVT. Plan is for discharge today. This is late address patient did not discharge. Hospitalist Physical - Physical exam Narrative exam: General appearance: Present: no acute distress, well-nourished - EENT Eyes: Present: PERRL, EOM intact ENT: hearing intact, clear oral mucosa, dentition normal, no oropharyngeal erythema, no poor dentition, no thrush - Neck Neck: Present: supple, normal ROM - Respiratory Respiratory effort: normal Respiratory: bilateral: CTA - Cardiovascular Rhythm: regular Heart Sounds: Present: S1 & S2 - Extremities Extremities: no ischemia, pulses intact, pulses symmetrical Extremity abnormal: other (Patient with left leg edema and cellulitis. Much les s warm today. Patient has a center area of blistering and ruborous formation. What is improved is the peripheral erythema is much improved with less angry and no longer warm to touch.) - Abdominal General gastrointestinal: soft, non-tender, non-distended, distended, normal bowel sounds, no hepatomegaly, no splenomegaly - Integumentary Integumentary: Present: clear, warm, erythema - Psychiatric Psychiatric: appropriate mood/affect, intact judgment & insight, memory intact, cooperative - Neurologic Neurologic: CNII-XII intact, moves all extremities - Constitutional Vitals: Temp Pulse Resp BP Pulse Ox 98 F 78 18 110/68 99 07/27/19 04:49 07/27/19 04:49 07/27/19 04:49 07/27/19 04:49 07/27/19 04:49 General appearance: Present: no acute distress, well-nourished TRES score - Tres Score Age > 65: (0) No Aspirin use within the Past 7 Days: (1) Yes 3 or more CAD Risk Factors: (1) Yes 2 or more Angina events in past 24 hrs: (0) No Known CAD with more than 50% Stenosis: (1) Yes Elevated Cardiac Markers: (0) No ST Deviation Greater than 0.5mm: (0) No TRES Score: 3 Results - Labs CBC & Chem 7: 07/27/19 07:16 07/23/19 04:32 Labs: Laboratory Last Values WBC 10.2 K/mm3 (4.5-11.0) 07/27/19 07:16 RBC 4.02 M/mm3 (3.65-5.03) 07/27/19 07:16 Hgb 12.0 gm/dl (11.8-15.2) 07/27/19 07:16 Hct 35.5 % (35.5-45.6) 07/27/19 07:16 MCV 88 fl (84-94) 07/27/19 07:16 MCH 30 pg (28-32) 07/27/19 07:16 MCHC 34 % (32-34) 07/27/19 07:16 RDW 14.0 % (13.2-15.2) 07/27/19 07:16 Plt Count 310 K/mm3 (140-440) 07/27/19 07:16 Lymph % (Auto) 8.5 % (13.4-35.0) L 07/23/19 04:32 [place] % (Auto) 10.5 % (0.0-7.3) H 07/23/19 04:32 Eos % (Auto) 0.2 % (0.0-4.3) 07/23/19 04:32 Baso % (Auto) 0.2 % (0.0-1.8) 07/23/19 04:32 Lymph # 1.2 K/mm3 (1.2-5.4) 07/23/19 04:32 [place] # 1.5 K/mm3 (0.0-0.8) H 07/23/19 04:32 Eos # 0.0 K/mm3 (0.0-0.4) 07/23/19 04:32 Baso # 0.0 K/mm3 (0.0-0.1) 07/23/19 04:32 Add Manual Diff Complete 07/22/19 19:53 Total Counted 100 07/22/19 19:53 Seg Neutrophils % 80.6 % (40.0-70.0) H 07/23/19 04:32 Seg Neuts % (Manual) 87.0 % (40.0-70.0) H 07/22/19 19:53 Band Neutrophils % 1.0 % 07/22/19 19:53 Lymphocytes % (Manual) 5.0 % (13.4-35.0) L 07/22/19 19:53 Reactive Lymphs % (Man) 0 % 07/22/19 19:53 Monocytes % (Manual) 7.0 % (0.0-7.3) 07/22/19 19:53 Eosinophils % (Manual) 0 % (0.0-4.3) 07/22/19 19:53 Basophils % (Manual) 0 % (0.0-1.8) 07/22/19 19:53 Metamyelocytes % 0 % 07/22/19 19:53 Myelocytes % 0 % 07/22/19 19:53 Promyelocytes % 0 % 07/22/19 19:53 Blast Cells % 0 % 07/22/19 19:53 Nucleated RBC % Not Reportable 07/22/19 19:53 Seg Neutrophils # 11.8 K/mm3 (1.8-7.7) H 07/23/19 04:32 Seg Neutrophils # Man 13.3 K/mm3 (1.8-7.7) H 07/22/19 19:53 Band Neutrophils # 0.2 K/mm3 07/22/19 19:53 Lymphocytes # (Manual) 0.8 K/mm3 (1.2-5.4) L 07/22/19 19:53 Abs React Lymphs (Man) 0.0 K/mm3 07/22/19 19:53 Monocytes # (Manual) 1.1 K/mm3 (0.0-0.8) H 07/22/19 19:53 Eosinophils # (Manual) 0.0 K/mm3 (0.0-0.4) 07/22/19 19:53 Basophils # (Manual) 0.0 K/mm3 (0.0-0.1) 07/22/19 19:53 Metamyelocytes # 0.0 K/mm3 07/22/19 19:53 Myelocytes # 0.0 K/mm3 07/22/19 19:53 Promyelocytes # 0.0 K/mm3 07/22/19 19:53 Blast Cells # 0.0 K/mm3 07/22/19 19:53 WBC Morphology Not Reportable 07/22/19 19:53 Hypersegmented Neuts Not Reportable 07/22/19 19:53 Hyposegmented Neuts Not Reportable 07/22/19 19:53 Hypogranular Neuts Not Reportable 07/22/19 19:53 Smudge Cells Not Reportable 07/22/19 19:53 Toxic Granulation Not Reportable 07/22/19 19:53 Toxic Vacuolation Not Reportable 07/22/19 19:53 Dohle Bodies Not Reportable 07/22/19 19:53 Pelger-Huet Anomaly Not Reportable 07/22/19 19:53 Angie Rods Not Reportable 07/22/19 19:53 Platelet Estimate Consistent w auto 07/22/19 19:53 Clumped Platelets Not Reportable 07/22/19 19:53 Plt Clumps, EDTA Not Reportable 07/22/19 19:53 Large Platelets Not Reportable 07/22/19 19:53 Giant Platelets Not Reportable 07/22/19 19:53 Platelet Satelliting Not Reportable 07/22/19 19:53 Plt Morphology Comment Not Reportable 07/22/19 19:53 RBC Morphology Not Reportable 07/22/19 19:53 Dimorphic RBCs Not Reportable 07/22/19 19:53 Polychromasia Not Reportable 07/22/19 19:53 Hypochromasia Not Reportable 07/22/19 19:53 Poikilocytosis Not Reportable 07/22/19 19:53 Anisocytosis Few 07/22/19 19:53 Microcytosis Not Reportable 07/22/19 19:53 Macrocytosis Not Reportable 07/22/19 19:53 Spherocytes Not Reportable 07/22/19 19:53 Pappenheimer Bodies Not Reportable 07/22/19 19:53 Sickle Cells Not Reportable 07/22/19 19:53 Target Cells Not Reportable 07/22/19 19:53 Tear Drop Cells Not Reportable 07/22/19 19:53 Ovalocytes Not Reportable 07/22/19 19:53 Helmet Cells Not Reportable 07/22/19 19:53 [place] Bodies Not Reportable 07/22/19 19:53 [place] Rings Not Reportable 07/22/19 19:53 Cookie Cells Not Reportable 07/22/19 19:53 Bite Cells Not Reportable 07/22/19 19:53 Crenated Cell Not Reportable 07/22/19 19:53 Elliptocytes Not Reportable 07/22/19 19:53 Acanthocytes (Spur) Not Reportable 07/22/19 19:53 Rouleaux Not Reportable 07/22/19 19:53 Hemoglobin C Crystals Not Reportable 07/22/19 19:53 Schistocytes Not Reportable 07/22/19 19:53 Malaria parasites Not Reportable 07/22/19 19:53 Praveen Bodies Not Reportable 07/22/19 19:53 Hem Pathologist Commnt No 07/22/19 19:53 Sodium 137 mmol/L (137-145) 07/23/19 04:32 Potassium 4.3 mmol/L (3.6-5.0) 07/23/19 04:32 Chloride 100.9 mmol/L (98-107) 07/23/19 04:32 Carbon Dioxide 25 mmol/L (22-30) 07/23/19 04:32 Anion Gap 15 mmol/L 07/23/19 04:32 BUN 16 mg/dL (9-20) 07/23/19 04:32 Creatinine 1.0 mg/dL (0.8-1.5) 07/23/19 04:32 Estimated GFR > 60 ml/min 07/23/19 04:32 BUN/Creatinine Ratio 16 % 07/23/19 04:32 Glucose 127 mg/dL (75-100) H 07/23/19 04:32 Calcium 9.2 mg/dL (8.4-10.2) 07/23/19 04:32 Total Bilirubin 0.50 mg/dL (0.1-1.2) 07/22/19 19:53 AST 22 units/L (5-40) 07/22/19 19:53 ALT 25 units/L (7-56) 07/22/19 19:53 Alkaline Phosphatase 71 units/L (35-129) 07/22/19 19:53 Total Creatine Kinase 46 units/L (55-170) L 07/23/19 04:32 CK-MB (CK-2) 1.2 ng/mL (0.0-4.0) 07/23/19 04:32 CK-MB (CK-2) Rel Index 2.6 (0-4) 07/23/19 04:32 Troponin T 0.014 ng/mL (0.00-0.029) 07/23/19 04:32 Total Protein 6.0 g/dL (6.3-8.2) L 07/22/19 19:53 Albumin 3.6 g/dL (3.9-5) L 07/22/19 19:53 Albumin/Globulin Ratio 1.5 % 07/22/19 19:53 Urine Color Yellow (Yellow) 07/23/19 11:32 Urine Turbidity Clear (Clear) 07/23/19 11:32 Urine pH 6.0 (5.0-7.0) 07/23/19 11:32 Ur Specific [place] 1.014 (1.003-1.030) 07/23/19 11:32 Urine Protein 30 mg/dl mg/dL (Negative) 07/23/19 11:32 Urine Glucose (UA) >=500 mg/dL (Negative) 07/23/19 11:32 Urine Ketones Neg mg/dL (Negative) 07/23/19 11:32 Urine Blood Neg (Negative) 07/23/19 11:32 Urine Nitrite Neg (Negative) 07/23/19 11:32 Urine Bilirubin Neg (Negative) 07/23/19 11:32 Urine Urobilinogen < 2.0 mg/dL (<2.0) 07/23/19 11:32 Ur Leukocyte Esterase Neg (Negative) 07/23/19 11:32 Urine WBC (Auto) 12.0 /HPF (0.0-6.0) H 07/23/19 11:32 Urine RBC (Auto) 3.0 /HPF (0.0-6.0) 07/23/19 11:32 U Epithel Cells (Auto) 2.0 /HPF (0-13.0) 07/23/19 11:32 Urine Bacteria (Auto) 2+ /HPF (Negative) 07/23/19 11:32 Hyaline Casts 1 /LPF 07/23/19 11:32 Urine Mucus Few /HPF 07/23/19 11:32 Urine Opiates Screen Presumptive negative 07/22/19 Unknown Urine Methadone Screen Presumptive negative 07/22/19 Unknown Ur Barbiturates Screen Presumptive negative 07/22/19 Unknown Ur Phencyclidine Scrn Presumptive negative 07/22/19 Unknown Ur Amphetamines Screen Presumptive negative 07/22/19 Unknown U Benzodiazepines Scrn Presumptive negative 07/22/19 Unknown Urine Cocaine Screen Presumptive negative 07/22/19 Unknown U Marijuana (THC) Screen Presumptive negative 07/22/19 Unknown Drugs of Abuse Note Disclamer 07/22/19 Unknown Sawant/IV: Voiding Method Urinal IV Catheter Type [Left Arm] Peripheral IV IV Catheter Type [Right Peripheral IV Forearm] Active Medications - Current Medications Current Medications: Generic Name Dose Route Start Last Admin Trade Name Freq PRN Reason Stop Dose Admin Acetaminophen 650 mg 07/22/19 23:27 07/23/19 21:30 Tylenol PO 650 mg Q4H PRN Administration Pain MILD(1-3)/Fever >100.5/GARCIA Aspirin 81 mg 07/24/19 14:00 07/26/19 09:20 Halfprin Ec PO 81 mg QDAY FLORES Administration Atorvastatin Calcium 40 mg 07/23/19 22:00 07/26/19 21:28 Lipitor PO 40 mg QHS FLORES Administration Carvedilol 3.125 mg 07/25/19 22:00 07/26/19 21:28 Coreg PO 3.125 mg BID FLORES Administration Clopidogrel Bisulfate 75 mg 07/24/19 14:00 07/26/19 09:19 Plavix PO 75 mg DAILY FLORES Administration Enoxaparin Sodium 40 mg 07/23/19 10:00 07/26/19 09:21 Enoxaparin SUB-Q 40 mg QDAY@1000 FLORES Administration Gabapentin 100 mg 07/24/19 14:00 07/27/19 05:10 Gabapentin PO 100 mg Q8HR FLORES Administration Piperacillin Sod/Tazobactam Sod 4.5 gm in 100 mls @ 200 mls/hr 07/23/19 06:00 07/26/19 21:27 Zosyn/Ns 4.5gm/100ml IV 07/27/19 23:59 200 mls/hr Q8HR FLORES Administration Protocol Isosorbide Mononitrate 30 mg 07/24/19 14:00 07/26/19 09:20 Imdur PO 30 mg DAILY FLORES Administration Lisinopril 2.5 mg 07/26/19 10:00 07/26/19 09:19 Zestril PO 2.5 mg QDAY FLORES Administration [place] Carbonate 300 mg 07/24/19 14:00 07/26/19 21:28 Eskalith PO 300 mg TID FLORES Administration Ondansetron HCl 4 mg 07/22/19 23:27 Zofran IV Q8H PRN Nausea And Vomiting Oxycodone/Acetaminophen 1 tab 07/22/19 23:27 Percocet 5/325 PO Q6H PRN Pain, Moderate (4-6) Sertraline HCl 25 mg 07/25/19 10:00 07/26/19 09:20 Zoloft PO 25 mg QDAY FLORES Administration Sodium Chloride 10 ml 07/23/19 10:00 07/26/19 21:29 Sodium Chloride Flush Syringe 10 Ml IV 10 ml BID FLORES Administration Sodium Chloride 10 ml 07/22/19 23:27 Sodium Chloride Flush Syringe 10 Ml IV PRN PRN LINE FLUSH
[2019-07-27 08:19] LABS: BUN/Creatinine Ratio 11; Blood Urea Nitrogen 10 mg/dL (9-20); Calcium 8.7 mg/dL (8.4-10.2); Hemolysis Index 7
[2019-07-27] MEDS: PIPERACIL/TAZOBACTA 4.5/NS 100 4.5 GM/100 ML VIAL IV SCH ×3 (08:28→21:34)
[2019-07-27] MEDS: LISINOPRIL 5 MG TAB PO SCH (09:55)
[2019-07-27] MEDS: SERTRALINE 25 MG TAB PO SCH (09:55)
[2019-07-27] MEDS: ENOXAPARIN 40 MG/0.4 ML INJ SUB-Q SCH (09:55)
[2019-07-27] MEDS: CLOPIDOGREL 75 MG TAB PO SCH (09:55)
[2019-07-27] MEDS: LITHIUM CARBONATE 300 MG CAP PO SCH ×3 (09:55→21:32)
[2019-07-27] MEDS: carvediloL 3.125 MG TAB PO SCH ×2 (09:56→21:32)
[2019-07-27] MEDS: ASPIRIN EC 81 MG TAB PO SCH (09:56)
--- NOTE | 2019-07-27 13:56 | Consultation ---
History of Present Illness - Reason for Consult Consult date: 07/27/19 Reason for consult: suicidal ideation - Chief Complaint Chief complaint: suicidal ideation - History of Present Psychiatric Illness David Baca is a 63y/o male who states he was admitted "from [place] [facility] after having shortness of breath and pneumonia." The is a/o x 3. He makes good eye contact. He is talkative. A sitter is at bedside. He says he was at [place] [facility] for "suicidal ideation." He says "I'm not sure how I feel now. I think I have minor ideation of suicide." The patient states "I've been so concerned about healing my body I haven't had time to think about it." He says at present he "has no thoughts of dying, but I need to go back to [place] to make sure his meds are straight." Mr. Baca says, "I'm not sure of what might happen if I go home. That might be a mistake." The patient denies any illicit drug or alcohol use. He also denies any nicotine use. The patient states he has diagnoses of "depression and bipolar." He says he currently takes "lithium." The patient says he has "attempted suicide in the past three times by overdose." He denies hallucinations of any kind. He states he's "anxious about what's going to happen." He says he's been "sleeping well" and his appetite "has been better than what it's been." PAST PSYCHIATRIC HISTORY: Diagnoses: Bipolar, depression Suicide attempts or Self-harm behavior: 3 x Prior psychiatric hospitalizations: Yes x 4 Substance Abuse history: Denies Previous psychiatric medications tried: [place], zoloft Outpatient treatment: Yes PAST MEDICAL HISTORY: HTN, RI, CAD FAMILY PSYCHIATRIC HISTORY: None reported SOCIAL HISTORY Marital Status: Single Living Arrangements: Home of Light Employment Status: Disabled Access to guns/weapons: Denies Education: Bachelor's degree History of Abuse: Denies Legal History: Denies ROS Constitutional: Negative for weight loss ENT: Negative for stridor Respiratory: Positive for cough All other systems reviewed and are negative MENTAL STATUS General Appearance: Dressed appropriately Behavior: Calm and cooperative Mood: Anxious Affect: Congruent with stated mood Thought Process: Logical and Goal-directed Speech: Increased rate Thought Content Suicidal Ideation: Yes Homicidal Ideation: Denies Hallucinations: Denies Delusions: None elicited Insight/Judgment: Limited Memory/Cognition: Normal ASSESSMENT: Bipolar Disorder, Severe, Current Episode Depressed w/o Psychotic Features RECOMMENDATIONS MEDICATIONS: Continue home medications as already prescribed Risks, benefits and alternatives of medications discussed with the patient, questions answered and consent obtained from patient. PSYCHOTHERAPY: Supportive psychotherapy provided MEDICAL: Per primary team DELIRIUM PRECAUTIONS: Please re-orient patient frequently, keep lights on during the day, and minimize benzodiazepines and opiates as these medications could worsen patient's confusion. FOOD TECHNOLOGY TEACHER: Defer to primary DISPOSITION: The patient meets the requirement for acute inpatient psychiatric hospitalization at this time. The patient may transfer to an acute psychiatric facility once medically cleared. LEGAL STATUS: 1013 Will follow until the patient is transferred or stabilizes enough for discharge. Please call with any questions or concerns. Thank you for this consult. Medications and Allergies Allergies Allergy/AdvReac Type Severity Reaction Status Date / Time No Known Allergies Allergy Verified 06/05/18 10:14 Home Medications Medication Instructions Recorded Confirmed Last Taken Type lisinopriL [Prinivil] 10 mg PO BID 01/03/18 07/23/19 Unknown History Aspirin EC [Halfprin EC] 81 mg PO QDAY 07/23/19 07/23/19 Unknown History Acetaminophen [Acetaminophen TAB] 650 mg PO Q4H PRN tablet 07/24/19 Unknown Rx AtorvaSTATin [Lipitor] 40 mg PO QHS #30 tablet 07/24/19 Unknown Rx Clopidogrel [Plavix] 75 mg PO DAILY #30 07/24/19 Unknown Rx Gabapentin 100 mg PO Q8HR #30 cap 07/24/19 Unknown Rx ISOSORBIDE MONOnitrate [Imdur ER] 30 mg PO DAILY #30 07/24/19 Unknown Rx [place] Carbonate [Eskalith] 300 mg PO TID #90 cap 07/24/19 Unknown Rx Metoprolol Xl [Metoprolol 12.5 mg PO BID #60 tablet 07/24/19 Unknown Rx SUCCINATE ER TAB] Sertraline [Zoloft] 25 mg PO QDAY #30 07/24/19 Unknown Rx levoFLOXacin [Levaquin TAB] 750 mg PO Q24HR #7 tablet 07/24/19 Unknown Rx Sulfamethoxazole/Trimethoprim 1 each PO BID #14 tablet 07/26/19 Unknown Rx [Bactrim 400-80 mg Tablet] Active Meds: Active Medications Acetaminophen (Tylenol) 650 mg PO Q4H PRN PRN Reason: Pain MILD(1-3)/Fever >100.5/GARCIA Last Admin: 07/23/19 21:30 Dose: 650 mg Documented by: Aspirin (Halfprin Ec) 81 mg PO QDAY [facility] Last Admin: 07/27/19 09:56 Dose: 81 mg Documented by: Atorvastatin Calcium (Lipitor) 40 mg PO QHS [facility] Last Admin: 07/26/19 21:28 Dose: 40 mg Documented by: Carvedilol (Coreg) 3.125 mg PO BID [facility] Last Admin: 07/27/19 09:56 Dose: 3.125 mg Documented by: Clopidogrel Bisulfate (Plavix) 75 mg PO DAILY [facility] Last Admin: 07/27/19 09:55 Dose: 75 mg Documented by: Enoxaparin Sodium (Enoxaparin) 40 mg SUB-Q QDAY@1000 [facility] Last Admin: 07/27/19 09:55 Dose: 40 mg Documented by: Gabapentin (Gabapentin) 100 mg PO Q8HR [facility] Last Admin: 07/27/19 05:10 Dose: 100 mg Documented by: Piperacillin Sod/Tazobactam Sod (Zosyn/Ns 4.5gm/100ml) 4.5 gm in 100 mls @ 200 mls/hr IV Q8HR [facility]; Protocol Stop: 07/27/19 23:59 Last Admin: 07/27/19 08:28 Dose: Not Given Documented by: Isosorbide Mononitrate (Imdur) 30 mg PO DAILY [facility] Last Admin: 07/27/19 09:56 Dose: 30 mg Documented by: Lisinopril (Zestril) 2.5 mg PO QDAY [facility] Last Admin: 07/27/19 09:55 Dose: 2.5 mg Documented by: [place] Carbonate (Eskalith) 300 mg PO TID [facility] Last Admin: 07/27/19 09:55 Dose: 300 mg Documented by: Ondansetron HCl (Zofran) 4 mg IV Q8H PRN PRN Reason: Nausea And Vomiting Oxycodone/Acetaminophen (Percocet 5/325) 1 tab PO Q6H PRN PRN Reason: Pain, Moderate (4-6) Sertraline HCl (Zoloft) 25 mg PO QDAY [facility] Last Admin: 07/27/19 09:55 Dose: 25 mg Documented by: Sodium Chloride (Sodium Chloride Flush Syringe 10 Ml) 10 ml IV BID FLORES Last Admin: 07/27/19 09:56 Dose: 10 ml Documented by: Sodium Chloride (Sodium Chloride Flush Syringe 10 Ml) 10 ml IV PRN PRN PRN Reason: LINE FLUSH Mental Status Exam - Vital signs Last Vital Signs Temp 98.8 F 07/27/19 08:00 Pulse 71 07/27/19 10:00 Resp 18 07/27/19 04:49 BP 137/66 07/27/19 08:00 Pulse Ox 99 07/27/19 04:49 Results Result Diagrams: 07/27/19 07:16 07/27/19 07:16 Abnormal lab results 07/27/19 Range/Units 07:16 Carbon Dioxide 19 L (22-30) mmol/L Glucose 104 H (75-100) mg/dL All other labs normal.
--- NOTE | 2019-07-27 17:27 | Progress Note ---
Assessment and Plan Assessment and plan: 63-year-old male with a history of hypertension, depression, coronary artery disease was sent from [facility] today for evaluation of chest pain. Pain is in the epigastric area that started yesterday which he describes as squeezing pain, intermittent every 5 minutes, intensity 5/10, no radiation, cannot identify exacerbating factors. Admits to shortness of breath, no nausea vomiting, diaphoresis or palpitation. He had a stress test at [facility] 2-1/2 months ago. Patient has a nonproductive cough, no fever or chills, recent travel. Patient had ankle for suicidal ideation. Denies trauma to leg. he will be admitted for chest pain evaluation, pneumonia - Patient Problems (1) Cellulitis of leg without foot, left Current Visit: Yes Status: Acute Plan to address problem: Cellulitis left leg. Much improved with 1 dose of vancomycin. Also reobtain blood cultures. Local wound care. Most likely source was a blister formation on the heel just below along with a weakened immune system. Continue treatment vancomycin local wound care. We will also rule out DVT because of unilateral leg swelling. Ultrasound with no DVT. Plan was for discharge unsure why the patient did not leave. Ice has gone back to the inpatient psych facility. Give Lasix also improved also visible 40mg daily (2) Chest pain Current Visit: Yes Status: Acute Qualifiers: Chest pain type: unspecified Qualified Code(s): R07.9 - Chest pain, unspecified Plan to address problem: Secondary to right lower lobe pneumonia. This is also improved significantly. No shortness of breath. No fever. Clinically improved with less rhonchi on right side. Clinically clear stable. Patient had cardiac catheterization several months ago no stent. On this admission negative Lexiscan evaluated by cardiology stable from that standpoint. (3) Pneumonia Current Visit: Yes Status: Acute Qualifiers: Pneumonia type: due to unspecified organism Laterality: right Lung location: unspecified part of lung Qualified Code(s): J18.9 - Pneumonia, unspecified organism Plan to address problem: Right lower lobe pneumonia continues to improve. May follow-up with x-ray upon discharge but clinically patient doing better. But is keeping here now as the left lower extremity cellulitis. (4) SOB (shortness of breath) Current Visit: Yes Status: Acute Plan to address problem: Patient shortness of breath secondary to pneumonia has improved significantly. Heart disease is not playing any role at this time. (5) CAD (coronary artery disease) Current Visit: Yes Status: Chronic Qualifiers: Coronary Disease-Associated Artery/Lesion type: [place] artery [place] vs. transplanted heart: [place] heart Associated angina: with other forms of angina Qualified Code(s): I25.118 - Atherosclerotic heart disease of [place] coronary artery with other forms of angina pectoris Plan to address problem: Patient has coronary artery disease. Status post cardiac catheterization 3 months ago no stent. Negative Lexiscan this admission. (6) History of coronary artery stent placement Current Visit: Yes Status: Chronic (7) Hypertension Current Visit: Yes Status: Chronic Qualifiers: Hypertension type: essential hypertension Qualified Code(s): I10 - Essential (primary) hypertension Plan to address problem: Remains on low side. Will decrease Coreg to 3.25 mg and also decrease lisinopril to 5 mg. (8) Depression Current Visit: Yes Status: Acute Plan to address problem: Patient affect is no longer flat. Up in good spirits. Continue SSRI as well as lithium. History Interval history: Patient seen and examined today reports still redness of the left lower extremity cointinues to improve. Ultrasound Doppler reviewed with no DVT. Plan is for discharge today. This is late address patient did not discharge. Hospitalist Physical - Physical exam Narrative exam: General appearance: Present: no acute distress, well-nourished - EENT Eyes: Present: PERRL, EOM intact ENT: hearing intact, clear oral mucosa, dentition normal, no oropharyngeal erythema, no poor dentition, no thrush - Neck Neck: Present: supple, normal ROM - Respiratory Respiratory effort: normal Respiratory: bilateral: CTA - Cardiovascular Rhythm: regular Heart Sounds: Present: S1 & S2 - Extremities Extremities: no ischemia, pulses intact, pulses symmetrical Extremity abnormal: other (Patient with left leg edema and cellulitis. Much less warm today. Patient has a center area of blistering and ruborous formation. What is improved is the peripheral erythema is much improved with less angry and no longer warm to touch.) - Abdominal General gastrointestinal: soft, non-tender, non-distended, distended, normal bowel sounds, no hepatomegaly, no splenomegaly - Integumentary Integumentary: Present: clear, warm, erythema. left lower ext Edema +3 - Psychiatric Psychiatric: appropriate mood/affect, intact judgment & insight, memory intact, cooperative - Neurologic Neurologic: CNII-XII intact, moves all extremities - Constitutional Vitals: Temp Pulse Resp BP Pulse Ox 98.8 F 71 18 137/66 99 07/27/19 08:00 07/27/19 10:00 07/27/19 04:49 07/27/19 08:00 07/27/19 04:49 General appearance: Present: no acute distress, well-nourished TRES score - Tres Score Age > 65: (0) No Aspirin use within the Past 7 Days: (1) Yes 3 or more CAD Risk Factors: (1) Yes 2 or more Angina events in past 24 hrs: (0) No Known CAD with more than 50% Stenosis: (1) Yes Elevated Cardiac Markers: (0) No ST Deviation Greater than 0.5mm: (0) No TRES Score: 3 Results - Labs CBC & Chem 7: 07/27/19 07:16 07/27/19 07:16 Labs: Laboratory Last Values WBC 10.2 K/mm3 (4.5-11.0) 07/27/19 07:16 RBC 4.02 M/mm3 (3.65-5.03) 07/27/19 07:16 Hgb 12.0 gm/dl (11.8-15.2) 07/27/19 07:16 Hct 35.5 % (35.5-45.6) 07/27/19 07:16 MCV 88 fl (84-94) 07/27/19 07:16 MCH 30 pg (28-32) 07/27/19 07:16 MCHC 34 % (32-34) 07/27/19 07:16 RDW 14.0 % (13.2-15.2) 07/27/19 07:16 Plt Count 310 K/mm3 (140-440) 07/27/19 07:16 Lymph % (Auto) 8.5 % (13.4-35.0) L 07/23/19 04:32 [place] % (Auto) 10.5 % (0.0-7.3) H 07/23/19 04:32 Eos % (Auto) 0.2 % (0.0-4.3) 07/23/19 04:32 Baso % (Auto) 0.2 % (0.0-1.8) 07/23/19 04:32 Lymph # 1.2 K/mm3 (1.2-5.4) 07/23/19 04:32 [place] # 1.5 K/mm3 (0.0-0.8) H 07/23/19 04:32 Eos # 0.0 K/mm3 (0.0-0.4) 07/23/19 04:32 Baso # 0.0 K/mm3 (0.0-0.1) 07/23/19 04:32 Add Manual Diff Complete 07/22/19 19:53 Total Counted 100 07/22/19 19:53 Seg Neutrophils % 80.6 % (40.0-70.0) H 07/23/19 04:32 Seg Neuts % (Manual) 87.0 % (40.0-70.0) H 07/22/19 19:53 Band Neutrophils % 1.0 % 07/22/19 19:53 Lymphocytes % (Manual) 5.0 % (13.4-35.0) L 07/22/19 19:53 Reactive Lymphs % (Man) 0 % 07/22/19 19:53 Monocytes % (Manual) 7.0 % (0.0-7.3) 07/22/19 19:53 Eosinophils % (Manual) 0 % (0.0-4.3) 07/22/19 19:53 Basophils % (Manual) 0 % (0.0-1.8) 07/22/19 19:53 Metamyelocytes % 0 % 07/22/19 19:53 Myelocytes % 0 % 07/22/19 19:53 Promyelocytes % 0 % 07/22/19 19:53 Blast Cells % 0 % 07/22/19 19:53 Nucleated RBC % Not Reportable 07/22/19 19:53 Seg Neutrophils # 11.8 K/mm3 (1.8-7.7) H 07/23/19 04:32 Seg Neutrophils # Man 13.3 K/mm3 (1.8-7.7) H 07/22/19 19:53 Band Neutrophils # 0.2 K/mm3 07/22/19 19:53 Lymphocytes # (Manual) 0.8 K/mm3 (1.2-5.4) L 07/22/19 19:53 Abs React Lymphs (Man) 0.0 K/mm3 07/22/19 19:53 Monocytes # (Manual) 1.1 K/mm3 (0.0-0.8) H 07/22/19 19:53 Eosinophils # (Manual) 0.0 K/mm3 (0.0-0.4) 07/22/19 19:53 Basophils # (Manual) 0.0 K/mm3 (0.0-0.1) 07/22/19 19:53 Metamyelocytes # 0.0 K/mm3 07/22/19 19:53 Myelocytes # 0.0 K/mm3 07/22/19 19:53 Promyelocytes # 0.0 K/mm3 07/22/19 19:53 Blast Cells # 0.0 K/mm3 07/22/19 19:53 WBC Morphology Not Reportable 07/22/19 19:53 Hypersegmented Neuts Not Reportable 07/22/19 19:53 Hyposegmented Neuts Not Reportable 07/22/19 19:53 Hypogranular Neuts Not Reportable 07/22/19 19:53 Smudge Cells Not Reportable 07/22/19 19:53 Toxic Granulation Not Reportable 07/22/19 19:53 Toxic Vacuolation Not Reportable 07/22/19 19:53 Dohle Bodies Not Reportable 07/22/19 19:53 Pelger-Huet Anomaly Not Reportable 07/22/19 19:53 Angie Rods Not Reportable 07/22/19 19:53 Platelet Estimate Consistent w auto 07/22/19 19:53 Clumped Platelets Not Reportable 07/22/19 19:53 Plt Clumps, EDTA Not Reportable 07/22/19 19:53 Large Platelets Not Reportable 07/22/19 19:53 Giant Platelets Not Reportable 07/22/19 19:53 Platelet Satelliting Not Reportable 07/22/19 19:53 Plt Morphology Comment Not Reportable 07/22/19 19:53 RBC Morphology Not Reportable 07/22/19 19:53 Dimorphic RBCs Not Reportable 07/22/19 19:53 Polychromasia Not Reportable 07/22/19 19:53 Hypochromasia Not Reportable 07/22/19 19:53 Poikilocytosis Not Reportable 07/22/19 19:53 Anisocytosis Few 07/22/19 19:53 Microcytosis Not Reportable 07/22/19 19:53 Macrocytosis Not Reportable 07/22/19 19:53 Spherocytes Not Reportable 07/22/19 19:53 Pappenheimer Bodies Not Reportable 07/22/19 19:53 Sickle Cells Not Reportable 07/22/19 19:53 Target Cells Not Reportable 07/22/19 19:53 Tear Drop Cells Not Reportable 07/22/19 19:53 Ovalocytes Not Reportable 07/22/19 19:53 Helmet Cells Not Reportable 07/22/19 19:53 Baca-Charlo Bodies Not Reportable 07/22/19 19:53 Dorris Rings Not Reportable 07/22/19 19:53 Cookie Cells Not Reportable 07/22/19 19:53 Bite Cells Not Reportable 07/22/19 19:53 Crenated Cell Not Reportable 07/22/19 19:53 Elliptocytes Not Reportable 07/22/19 19:53 Acanthocytes (Spur) Not Reportable 07/22/19 19:53 Rouleaux Not Reportable 07/22/19 19:53 Hemoglobin C Crystals Not Reportable 07/22/19 19:53 Schistocytes Not Reportable 07/22/19 19:53 Malaria parasites Not Reportable 07/22/19 19:53 Praveen Bodies Not Reportable 07/22/19 19:53 Hem Pathologist Commnt No 07/22/19 19:53 Sodium 139 mmol/L (137-145) 07/27/19 07:16 Potassium 4.0 mmol/L (3.6-5.0) 07/27/19 07:16 Chloride 106.4 mmol/L (98-107) 07/27/19 07:16 Carbon Dioxide 19 mmol/L (22-30) L 07/27/19 07:16 Anion Gap 18 mmol/L 07/27/19 07:16 BUN 10 mg/dL (9-20) 07/27/19 07:16 Creatinine 0.9 mg/dL (0.8-1.5) 07/27/19 07:16 Estimated GFR > 60 ml/min 07/27/19 07:16 BUN/Creatinine Ratio 11 % 07/27/19 07:16 Glucose 104 mg/dL (75-100) H 07/27/19 07:16 Calcium 8.7 mg/dL (8.4-10.2) 07/27/19 07:16 Total Bilirubin 0.50 mg/dL (0.1-1.2) 07/22/19 19:53 AST 22 units/L (5-40) 07/22/19 19:53 ALT 25 units/L (7-56) 07/22/19 19:53 Alkaline Phosphatase 71 units/L (35-129) 07/22/19 19:53 Total Creatine Kinase 46 units/L (55-170) L 07/23/19 04:32 CK-MB (CK-2) 1.2 ng/mL (0.0-4.0) 07/23/19 04:32 CK-MB (CK-2) Rel Index 2.6 (0-4) 07/23/19 04:32 Troponin T 0.014 ng/mL (0.00-0.029) 07/23/19 04:32 Total Protein 6.0 g/dL (6.3-8.2) L 07/22/19 19:53 Albumin 3.6 g/dL (3.9-5) L 07/22/19 19:53 Albumin/Globulin Ratio 1.5 % 07/22/19 19:53 Urine Color Yellow (Yellow) 07/23/19 11:32 Urine Turbidity Clear (Clear) 07/23/19 11:32 Urine pH 6.0 (5.0-7.0) 07/23/19 11:32 Ur Specific [place] 1.014 (1.003-1.030) 07/23/19 11:32 Urine Protein 30 mg/dl mg/dL (Negative) 07/23/19 11:32 Urine Glucose (UA) >=500 mg/dL (Negative) 07/23/19 11:32 Urine Ketones Neg mg/dL (Negative) 07/23/19 11:32 Urine Blood Neg (Negative) 07/23/19 11:32 Urine Nitrite Neg (Negative) 07/23/19 11:32 Urine Bilirubin Neg (Negative) 07/23/19 11:32 Urine Urobilinogen < 2.0 mg/dL (<2.0) 07/23/19 11:32 Ur Leukocyte Esterase Neg (Negative) 07/23/19 11:32 Urine WBC (Auto) 12.0 /HPF (0.0-6.0) H 07/23/19 11:32 Urine RBC (Auto) 3.0 /HPF (0.0-6.0) 07/23/19 11:32 U Epithel Cells (Auto) 2.0 /HPF (0-13.0) 07/23/19 11:32 Urine Bacteria (Auto) 2+ /HPF (Negative) 07/23/19 11:32 Hyaline Casts 1 /LPF 07/23/19 11:32 Urine Mucus Few /HPF 07/23/19 11:32 Urine Opiates Screen Presumptive negative 07/22/19 Unknown Urine Methadone Screen Presumptive negative 07/22/19 Unknown Ur Barbiturates Screen Presumptive negative 07/22/19 Unknown Ur Phencyclidine Scrn Presumptive negative 07/22/19 Unknown Ur Amphetamines Screen Presumptive negative 07/22/19 Unknown U Benzodiazepines Scrn Presumptive negative 07/22/19 Unknown Urine Cocaine Screen Presumptive negative 07/22/19 Unknown U Marijuana (THC) Screen Presumptive negative 07/22/19 Unknown Drugs of Abuse Note Disclamer 07/22/19 Unknown Sawant/IV: Voiding Method Urinal IV Catheter Type [Left Arm] Peripheral IV IV Catheter Type [Right Peripheral IV Forearm] Active Medications - Current Medications Current Medications: Generic Name Dose Route Start Last Admin Trade Name Freq PRN Reason Stop Dose Admin Acetaminophen 650 mg 07/22/19 23:27 07/23/19 21:30 Tylenol PO 650 mg Q4H PRN Administration Pain MILD(1-3)/Fever >100.5/GARCIA Aspirin 81 mg 07/24/19 14:00 07/27/19 09:56 Halfprin Ec PO 81 mg QDAY FLORES Administration Atorvastatin Calcium 40 mg 07/23/19 22:00 07/26/19 21:28 Lipitor PO 40 mg QHS FLORES Administration Carvedilol 3.125 mg 07/25/19 22:00 07/27/19 09:56 Coreg PO 3.125 mg BID FLORES Administration Clopidogrel Bisulfate 75 mg 07/24/19 14:00 07/27/19 09:55 Plavix PO 75 mg DAILY FLORES Administration Enoxaparin Sodium 40 mg 07/23/19 10:00 07/27/19 09:55 Enoxaparin SUB-Q 40 mg QDAY@1000 FLORES Administration Gabapentin 100 mg 07/24/19 14:00 03/17/20 14:42 Gabapentin PO 100 mg Q8HR FLORES Administration Piperacillin Sod/Tazobactam Sod 4.5 gm in 100 mls @ 200 mls/hr 07/23/19 06:00 07/27/19 14:42 Zosyn/Ns 4.5gm/100ml IV 07/27/19 23:59 200 mls/hr Q8HR FLORES Administration Protocol Isosorbide Mononitrate 30 mg 07/24/19 14:00 07/27/19 09:56 Imdur PO 30 mg DAILY FLORES Administration Lisinopril 2.5 mg 07/26/19 10:00 07/27/19 09:55 Zestril PO 2.5 mg QDAY FLORES Administration [place] Carbonate 300 mg 07/24/19 14:00 07/27/19 14:42 Eskalith PO 300 mg TID FLORES Administration Ondansetron HCl 4 mg 07/22/19 23:27 Zofran IV Q8H PRN Nausea And Vomiting Oxycodone/Acetaminophen 1 tab 07/22/19 23:27 Percocet 5/325 PO Q6H PRN Pain, Moderate (4-6) Sertraline HCl 25 mg 07/25/19 10:00 07/27/19 09:55 Zoloft PO 25 mg QDAY FLORES Administration Sodium Chloride 10 ml 07/23/19 10:00 07/27/19 14:42 Sodium Chloride Flush Syringe 10 Ml IV 10 ml BID FLORES Administration Sodium Chloride 10 ml 07/22/19 23:27 Sodium Chloride Flush Syringe 10 Ml IV PRN PRN LINE FLUSH
[2019-07-27] MEDS: FUROSEMIDE 40 MG/4 ML INJ IV SCH (17:58)
[2019-07-27] MEDS: ACETAMINOPHEN 325 MG TAB PO PRN (18:04)
[2019-07-28] MEDS: GABAPENTIN 100 MG CAP PO SCH ×2 (05:09→13:51)
[2019-07-28 08:27] VITALS: BP 129/81
[2019-07-28] MEDS: FUROSEMIDE 40 MG/4 ML INJ IV SCH (10:05)
[2019-07-28] MEDS: carvediloL 3.125 MG TAB PO SCH (10:05)
[2019-07-28] MEDS: SERTRALINE 25 MG TAB PO SCH (10:05)
[2019-07-28] MEDS: CLOPIDOGREL 75 MG TAB PO SCH (10:06)
[2019-07-28] MEDS: LISINOPRIL 5 MG TAB PO SCH (10:06)
[2019-07-28] MEDS: ENOXAPARIN 40 MG/0.4 ML INJ SUB-Q SCH (10:06)
[2019-07-28] MEDS: LITHIUM CARBONATE 300 MG CAP PO SCH ×2 (10:06→13:51)
[2019-07-28] MEDS: ASPIRIN EC 81 MG TAB PO SCH (10:06)
--- NOTE | 2019-07-28 10:14 | Consultation ---
History of Present Illness - Reason for Consult Consult date: 07/28/19 Reason for consult: suicidal ideation - Chief Complaint Chief complaint: suicidal ideation - History of Present Psychiatric Illness During my interview with the patient today, he is sitting up in the bed watching t.v. He is conversational, calm and cooperative. He is a/o x 3. He makes good eye contact. He has a sitter at bedside. The patient says he slept "well." He described his mood as "not bad." The patient says "things are better." When asked about SI/HI, the patient seemed to tailor his symptoms to the possibility of getting admitted to [facility]. He replied, "I have thoughts of suicide." He says the last time he had those thoughts were "last night. Today they are mild ones." He states "[facility] was starting me on a new medication so I want to go back there to get it. My clothes are there too." When advising the patient that he wasn't going back to [facility], he asks, "do you know why?" I informed that patient that I wasn't exactly sure. I advised him that I could call the assessors. He replied, "can you let me know before tomorrow. Because I can go home." He then states, "I think it's probably because I just got Medicaid." He says, "they probably won't me to redo all the paperwork." I asked the patient did he feel he could go home, the patient replied, "If I need to go home, I'm good to go. Like I said, things are better." When asking the patient did he have any fear of self harm, or feelings of endangerment of going home, he states, "no, if I get like that again, I'll just come back or go to [facility]." He denies hallucinations of any kind. ROS Constitutional: Negative for weight loss ENT: Negative for stridor Respiratory: Positive for cough All other systems reviewed and are negative MENTAL STATUS General Appearance: Dressed appropriately Behavior: Calm and cooperative. Good eye contact Mood: Anxious Affect: Congruent with stated mood Thought Process: Logical and Goal-directed Speech: Normal tone and pace Thought Content Suicidal Ideation: Initially, then denies Homicidal Ideation: Denies Hallucinations: Denies Delusions: None elicited Insight/Judgment: Limited Memory/Cognition: Normal ASSESSMENT: Bipolar Disorder, Severe, Current Episode Depressed w/o Psychotic Features RECOMMENDATIONS D/C 1013 MEDICATIONS: Continue home medications as already prescribed Risks, benefits and alternatives of medications discussed with the patient, questions answered and consent obtained from patient. PSYCHOTHERAPY: Supportive psychotherapy provided MEDICAL: Per primary team DELIRIUM PRECAUTIONS: Please re-orient patient frequently, keep lights on during the day, and minimize benzodiazepines and opiates as these medications could worsen patient's confusion. CHECK TOTALER: Defer to primary DISPOSITION: The patient does not meet the requirement for acute inpatient psychiatric hospitalization at this time. The patient may discharge home once medically cleared. Mr. Baca understands that if SI/HI or feelings of endangerment are to return he is to seek immediate attention, including but not limited to suicidal hotline, 911, and/or ER The hospital account liaison to further explain safety plan with the patient. The patient is to follow up with outpatient psychiatry or primary in 7 to 14 days. The plan was explained to the patient. Mr. Baca understands and agrees with the treatment plan. Will sign off. Please call with any questions or concerns. Thank you for this consult. Medications and Allergies Allergies Allergy/AdvReac Type Severity Reaction Status Date / Time No Known Allergies Allergy Verified 06/05/18 10:14 Home Medications Medication Instructions Recorded Confirmed Last Taken Type lisinopriL [Prinivil] 10 mg PO BID 01/03/18 07/23/19 Unknown History Aspirin EC [Halfprin EC] 81 mg PO QDAY 07/23/19 07/23/19 Unknown History Acetaminophen [Acetaminophen TAB] 650 mg PO Q4H PRN tablet 07/24/19 Unknown Rx AtorvaSTATin [Lipitor] 40 mg PO QHS #30 tablet 07/24/19 Unknown Rx Clopidogrel [Plavix] 75 mg PO DAILY #30 07/24/19 Unknown Rx Gabapentin 100 mg PO Q8HR #30 cap 07/24/19 Unknown Rx ISOSORBIDE MONOnitrate [Imdur ER] 30 mg PO DAILY #30 07/24/19 Unknown Rx [place] Carbonate [Eskalith] 300 mg PO TID #90 cap 07/24/19 Unknown Rx Metoprolol Xl [Metoprolol 12.5 mg PO BID #60 tablet 07/24/19 Unknown Rx SUCCINATE ER TAB] Sertraline [Zoloft] 25 mg PO QDAY #30 07/24/19 Unknown Rx levoFLOXacin [Levaquin TAB] 750 mg PO Q24HR #7 tablet 07/24/19 Unknown Rx Sulfamethoxazole/Trimethoprim 1 each PO BID #14 tablet 07/26/19 Unknown Rx [Bactrim 400-80 mg Tablet] Active Meds: Active Medications Acetaminophen (Tylenol) 650 mg PO Q4H PRN PRN Reason: Pain MILD(1-3)/Fever >100.5/GARCIA Last Admin: 07/27/19 18:04 Dose: 650 mg Documented by: Aspirin (Halfprin Ec) 81 mg PO QDAY [facility] Last Admin: 07/28/19 10:06 Dose: 81 mg Documented by: Atorvastatin Calcium (Lipitor) 40 mg PO QHS [facility] Last Admin: 07/27/19 21:32 Dose: 40 mg Documented by: Carvedilol (Coreg) 3.125 mg PO BID [facility] Last Admin: 07/28/19 10:05 Dose: 3.125 mg Documented by: Clopidogrel Bisulfate (Plavix) 75 mg PO DAILY [facility] Last Admin: 07/28/19 10:06 Dose: 75 mg Documented by: Enoxaparin Sodium (Enoxaparin) 40 mg SUB-Q QDAY@1000 [facility] Last Admin: 07/28/19 10:06 Dose: 40 mg Documented by: Furosemide (Lasix) 40 mg IV QDAY [facility] Last Admin: 07/28/19 10:05 Dose: 40 mg Documented by: Gabapentin (Gabapentin) 100 mg PO Q8HR [facility] Last Admin: 07/28/19 05:09 Dose: 100 mg Documented by: Isosorbide Mononitrate (Imdur) 30 mg PO DAILY [facility] Last Admin: 07/28/19 10:06 Dose: 30 mg Documented by: Lisinopril (Zestril) 2.5 mg PO QDAY [facility] Last Admin: 07/28/19 10:06 Dose: 2.5 mg Documented by: [place] Carbonate (Eskalith) 300 mg PO TID [facility] Last Admin: 07/28/19 10:06 Dose: 300 mg Documented by: Ondansetron HCl (Zofran) 4 mg IV Q8H PRN PRN Reason: Nausea And Vomiting Oxycodone/Acetaminophen (Percocet 5/325) 1 tab PO Q6H PRN PRN Reason: Pain, Moderate (4-6) Sertraline HCl (Zoloft) 25 mg PO QDAY [facility] Last Admin: 07/28/19 10:05 Dose: 25 mg Documented by: Sodium Chloride (Sodium Chloride Flush Syringe 10 Ml) 10 ml IV BID [facility] Last Admin: 07/28/19 10:06 Dose: 10 ml Documented by: Sodium Chloride (Sodium Chloride Flush Syringe 10 Ml) 10 ml IV PRN PRN PRN Reason: LINE FLUSH Mental Status Exam - Vital signs Last Vital Signs Temp 97.7 F 07/28/19 08:22 Pulse 64 07/28/19 08:22 Resp 20 07/28/19 08:22 BP 129/81 07/28/19 08:22 Pulse Ox 92 07/28/19 08:22 Results Result Diagrams: 07/27/19 07:16 07/27/19 07:16 All other labs normal.
--- NOTE | 2019-07-28 10:17 | Progress Note ---
Assessment and Plan Assessment and plan: 63-year-old male with a history of hypertension, depression, coronary artery disease was sent from [facility] today for evaluation of chest pain. Pain is in the epigastric area that started yesterday which he describes as squeezing pain, intermittent every 5 minutes, intensity 5/10, no radiation, cannot identify exacerbating factors. Admits to shortness of breath, no nausea vomiting, diaphoresis or palpitation. He had a stress test at [facility] 2-1/2 months ago. Patient has a nonproductive cough, no fever or chills, recent travel. Patient had ankle for suicidal ideation. Denies trauma to leg. he will be admitted for chest pain evaluation, pneumonia - Patient Problems (1) Cellulitis of leg without foot, left Current Visit: Yes Status: Acute Plan to address problem: Cellulitis left leg. Much improved with 1 dose of vancomycin. Also reobtain blood cultures. Local wound care. Most likely source was a blister formation on the heel just below along with a weakened immune system. Continue treatment vancomycin local wound care. We will also rule out DVT because of unilateral leg swelling. Ultrasound with no DVT. Plan was for discharge unsure why the patient did not leave. Ice has gone back to the inpatient psych facility. Give Lasix also improved also visible 40mg daily (2) Chest pain Current Visit: Yes Status: Acute Qualifiers: Chest pain type: unspecified Qualified Code(s): R07.9 - Chest pain, unspecified Plan to address problem: Secondary to right lower lobe pneumonia. This is also improved significantly. No shortness of breath. No fever. Clinically improved with less rhonchi on right side. Clinically clear stable. Patient had cardiac catheterization several months ago no stent. On this admission negative Lexiscan evaluated by cardiology stable from that standpoint. (3) SEPSIS Secondary to Pneumonia Current Visit: Yes Status: Acute Qualifiers: Pneumonia type: due to unspecified organism Laterality: right Lung location: unspecified part of lung Qualified Code(s): J18.9 - Pneumonia, unspecified organism Plan to address problem: Right lower lobe pneumonia continues to improve. May follow-up with x-ray upon discharge but clinically patient doing better. But is keeping here now as the l eft lower extremity cellulitis. (4) SOB (shortness of breath) Current Visit: Yes Status: Acute Plan to address problem: Patient shortness of breath secondary to pneumonia has improved significantly. Heart disease is not playing any role at this time. (5) CAD (coronary artery disease) Current Visit: Yes Status: Chronic Qualifiers: Coronary Disease-Associated Artery/Lesion type: [place] artery [place] vs. transplanted heart: [place] heart Associated angina: with other forms of angina Qualified Code(s): I25.118 - Atherosclerotic heart disease of [place] coronary artery with other forms of angina pectoris Plan to address problem: Patient has coronary artery disease. Status post cardiac catheterization 3 months ago no stent. Negative Lexiscan this admission. (6) History of coronary artery stent placement Current Visit: Yes Status: Chronic (7) Hypertension Current Visit: Yes Status: Chronic Qualifiers: Hypertension type: essential hypertension Qualified Code(s): I10 - Essential (primary) hypertension Plan to address problem: Remains on low side. Will decrease Coreg to 3.25 mg and also decrease lisinopril to 5 mg. (8) Depression Current Visit: Yes Status: Acute Plan to address problem: Patient affect is no longer flat. Up in good spirits. Continue SSRI as well as lithium. medically cleared for discharge to inpatient psych Hospitalist Physical - Constitutional Vitals: Temp Pulse Resp BP Pulse Ox 97.7 F 64 20 129/81 92 07/28/19 08:22 07/28/19 08:22 07/28/19 08:22 07/28/19 08:22 07/28/19 08:22 General appearance: Present: no acute distress, well-nourished TRES score - Tres Score Age > 65: (0) No Aspirin use within the Past 7 Days: (1) Yes 3 or more CAD Risk Factors: (1) Yes 2 or more Angina events in past 24 hrs: (0) No Known CAD with more than 50% Stenosis: (1) Yes Elevated Cardiac Markers: (0) No ST Deviation Greater than 0.5mm: (0) No TRES Score: 3 Results - Labs CBC & Chem 7: 07/27/19 07:16 07/27/19 07:16 Labs: Laboratory Last Values WBC 10.2 K/mm3 (4.5-11.0) 07/27/19 07:16 RBC 4.02 M/mm3 (3.65-5.03) 07/27/19 07:16 Hgb 12.0 gm/dl (11.8-15.2) 07/27/19 07:16 Hct 35.5 % (35.5-45.6) 07/27/19 07:16 MCV 88 fl (84-94) 07/27/19 07:16 MCH 30 pg (28-32) 07/27/19 07:16 MCHC 34 % (32-34) 07/27/19 07:16 RDW 14.0 % (13.2-15.2) 07/27/19 07:16 Plt Count 310 K/mm3 (140-440) 07/27/19 07:16 Lymph % (Auto) 8.5 % (13.4-35.0) L 07/23/19 04:32 [place] % (Auto) 10.5 % (0.0-7.3) H 07/23/19 04:32 Eos % (Auto) 0.2 % (0.0-4.3) 07/23/19 04:32 Baso % (Auto) 0.2 % (0.0-1.8) 07/23/19 04:32 Lymph # 1.2 K/mm3 (1.2-5.4) 07/23/19 04:32 [place] # 1.5 K/mm3 (0.0-0.8) H 07/23/19 04:32 Eos # 0.0 K/mm3 (0.0-0.4) 07/23/19 04:32 Baso # 0.0 K/mm3 (0.0-0.1) 07/23/19 04:32 Add Manual Diff Complete 07/22/19 19:53 Total Counted 100 07/22/19 19:53 Seg Neutrophils % 80.6 % (40.0-70.0) H 07/23/19 04:32 Seg Neuts % (Manual) 87.0 % (40.0-70.0) H 07/22/19 19:53 Band Neutrophils % 1.0 % 07/22/19 19:53 Lymphocytes % (Manual) 5.0 % (13.4-35.0) L 07/22/19 19:53 Reactive Lymphs % (Man) 0 % 07/22/19 19:53 Monocytes % (Manual) 7.0 % (0.0-7.3) 07/22/19 19:53 Eosinophils % (Manual) 0 % (0.0-4.3) 07/22/19 19:53 Basophils % (Manual) 0 % (0.0-1.8) 07/22/19 19:53 Metamyelocytes % 0 % 07/22/19 19:53 Myelocytes % 0 % 07/22/19 19:53 Promyelocytes % 0 % 07/22/19 19:53 Blast Cells % 0 % 07/22/19 19:53 Nucleated RBC % Not Reportable 07/22/19 19:53 Seg Neutrophils # 11.8 K/mm3 (1.8-7.7) H 07/23/19 04:32 Seg Neutrophils # Man 13.3 K/mm3 (1.8-7.7) H 07/22/19 19:53 Band Neutrophils # 0.2 K/mm3 07/22/19 19:53 Lymphocytes # (Manual) 0.8 K/mm3 (1.2-5.4) L 07/22/19 19:53 Abs React Lymphs (Man) 0.0 K/mm3 07/22/19 19:53 Monocytes # (Manual) 1.1 K/mm3 (0.0-0.8) H 07/22/19 19:53 Eosinophils # (Manual) 0.0 K/mm3 (0.0-0.4) 07/22/19 19:53 Basophils # (Manual) 0.0 K/mm3 (0.0-0.1) 07/22/19 19:53 Metamyelocytes # 0.0 K/mm3 07/22/19 19:53 Myelocytes # 0.0 K/mm3 07/22/19 19:53 Promyelocytes # 0.0 K/mm3 07/22/19 19:53 Blast Cells # 0.0 K/mm3 07/22/19 19:53 WBC Morphology Not Reportable 07/22/19 19:53 Hypersegmented Neuts Not Reportable 07/22/19 19:53 Hyposegmented Neuts Not Reportable 07/22/19 19:53 Hypogranular Neuts Not Reportable 07/22/19 19:53 Smudge Cells Not Reportable 07/22/19 19:53 Toxic Granulation Not Reportable 07/22/19 19:53 Toxic Vacuolation Not Reportable 07/22/19 19:53 Dohle Bodies Not Reportable 07/22/19 19:53 Pelger-Huet Anomaly Not Reportable 07/22/19 19:53 Angie Rods Not Reportable 07/22/19 19:53 Platelet Estimate Consistent w auto 07/22/19 19:53 Clumped Platelets Not Reportable 07/22/19 19:53 Plt Clumps, EDTA Not Reportable 07/22/19 19:53 Large Platelets Not Reportable 07/22/19 19:53 Giant Platelets Not Reportable 07/22/19 19:53 Platelet Satelliting Not Reportable 07/22/19 19:53 Plt Morphology Comment Not Reportable 07/22/19 19:53 RBC Morphology Not Reportable 07/22/19 19:53 Dimorphic RBCs Not Reportable 07/22/19 19:53 Polychromasia Not Reportable 07/22/19 19:53 Hypochromasia Not Reportable 07/22/19 19:53 Poikilocytosis Not Reportable 07/22/19 19:53 Anisocytosis Few 07/22/19 19:53 Microcytosis Not Reportable 07/22/19 19:53 Macrocytosis Not Reportable 07/22/19 19:53 Spherocytes Not Reportable 07/22/19 19:53 Pappenheimer Bodies Not Reportable 07/22/19 19:53 Sickle Cells Not Reportable 07/22/19 19:53 Target Cells Not Reportable 07/22/19 19:53 Tear Drop Cells Not Reportable 07/22/19 19:53 Ovalocytes Not Reportable 07/22/19 19:53 Helmet Cells Not Reportable 07/22/19 19:53 [place] Bodies Not Reportable 07/22/19 19:53 [place] Rings Not Reportable 07/22/19 19:53 Cookie Cells Not Reportable 07/22/19 19:53 Bite Cells Not Reportable 07/22/19 19:53 Crenated Cell Not Reportable 07/22/19 19:53 Elliptocytes Not Reportable 07/22/19 19:53 Acanthocytes (Spur) Not Reportable 07/22/19 19:53 Rouleaux Not Reportable 07/22/19 19:53 Hemoglobin C Crystals Not Reportable 07/22/19 19:53 Schistocytes Not Reportable 07/22/19 19:53 Malaria parasites Not Reportable 07/22/19 19:53 Praveen Bodies Not Reportable 07/22/19 19:53 Hem Pathologist Commnt No 07/22/19 19:53 Sodium 139 mmol/L (137-145) 07/27/19 07:16 Potassium 4.0 mmol/L (3.6-5.0) 07/27/19 07:16 Chloride 106.4 mmol/L (98-107) 07/27/19 07:16 Carbon Dioxide 19 mmol/L (22-30) L 07/27/19 07:16 Anion Gap 18 mmol/L 07/27/19 07:16 BUN 10 mg/dL (9-20) 07/27/19 07:16 Creatinine 0.9 mg/dL (0.8-1.5) 07/27/19 07:16 Estimated GFR > 60 ml/min 07/27/19 07:16 BUN/Creatinine Ratio 11 % 07/27/19 07:16 Glucose 104 mg/dL (75-100) H 07/27/19 07:16 Calcium 8.7 mg/dL (8.4-10.2) 07/27/19 07:16 Total Bilirubin 0.50 mg/dL (0.1-1.2) 07/22/19 19:53 AST 22 units/L (5-40) 07/22/19 19:53 ALT 25 units/L (7-56) 07/22/19 19:53 Alkaline Phosphatase 71 units/L (35-129) 07/22/19 19:53 Total Creatine Kinase 46 units/L (55-170) L 07/23/19 04:32 CK-MB (CK-2) 1.2 ng/mL (0.0-4.0) 07/23/19 04:32 CK-MB (CK-2) Rel Index 2.6 (0-4) 07/23/19 04:32 Troponin T 0.014 ng/mL (0.00-0.029) 07/23/19 04:32 Total Protein 6.0 g/dL (6.3-8.2) L 07/22/19 19:53 Albumin 3.6 g/dL (3.9-5) L 07/22/19 19:53 Albumin/Globulin Ratio 1.5 % 07/22/19 19:53 Urine Color Yellow (Yellow) 07/23/19 11:32 Urine Turbidity Clear (Clear) 07/23/19 11:32 Urine pH 6.0 (5.0-7.0) 07/23/19 11:32 Ur Specific [place] 1.014 (1.003-1.030) 07/23/19 11:32 Urine Protein 30 mg/dl mg/dL (Negative) 07/23/19 11:32 Urine Glucose (UA) >=500 mg/dL (Negative) 07/23/19 11:32 Urine Ketones Neg mg/dL (Negative) 07/23/19 11:32 Urine Blood Neg (Negative) 07/23/19 11:32 Urine Nitrite Neg (Negative) 07/23/19 11:32 Urine Bilirubin Neg (Negative) 07/23/19 11:32 Urine Urobilinogen < 2.0 mg/dL (<2.0) 07/23/19 11:32 Ur Leukocyte Esterase Neg (Negative) 07/23/19 11:32 Urine WBC (Auto) 12.0 /HPF (0.0-6.0) H 07/23/19 11:32 Urine RBC (Auto) 3.0 /HPF (0.0-6.0) 07/23/19 11:32 U Epithel Cells (Auto) 2.0 /HPF (0-13.0) 07/23/19 11:32 Urine Bacteria (Auto) 2+ /HPF (Negative) 07/23/19 11:32 Hyaline Casts 1 /LPF 07/23/19 11:32 Urine Mucus Few /HPF 07/23/19 11:32 Urine Opiates Screen Presumptive negative 07/22/19 Unknown Urine Methadone Screen Presumptive negative 07/22/19 Unknown Ur Barbiturates Screen Presumptive negative 07/22/19 Unknown Ur Phencyclidine Scrn Presumptive negative 07/22/19 Unknown Ur Amphetamines Screen Presumptive negative 07/22/19 Unknown U Benzodiazepines Scrn Presumptive negative 07/22/19 Unknown Urine Cocaine Screen Presumptive negative 07/22/19 Unknown U Marijuana (THC) Screen Presumptive negative 07/22/19 Unknown Drugs of Abuse Note Disclamer 07/22/19 Unknown Sawant/IV: Voiding Method Urinal IV Catheter Type [RIGHT ARM] INT / Saline Lock IV Catheter Type [Left Arm] Peripheral IV IV Catheter Type [Right Peripheral IV Forearm] Active Medications - Current Medications Current Medications: Generic Name Dose Route Start Last Admin Trade Name Freq PRN Reason Stop Dose Admin Acetaminophen 650 mg 07/22/19 23:27 07/27/19 18:04 Tylenol PO 650 mg Q4H PRN Administration Pain MILD(1-3)/Fever >100.5/GARCIA Aspirin 81 mg 07/24/19 14:00 07/28/19 10:06 Halfprin Ec PO 81 mg QDAY FLORES Administration Atorvastatin Calcium 40 mg 07/23/19 22:00 07/27/19 21:32 Lipitor PO 40 mg QHS FLORES Administration Carvedilol 3.125 mg 07/25/19 22:00 07/28/19 10:05 Coreg PO 3.125 mg BID FLORES Administration Clopidogrel Bisulfate 75 mg 07/24/19 14:00 07/28/19 10:06 Plavix PO 75 mg DAILY FLORES Administration Enoxaparin Sodium 40 mg 07/23/19 10:00 07/28/19 10:06 Enoxaparin SUB-Q 40 mg QDAY@1000 FLORES Administration Furosemide 40 mg 07/27/19 18:00 07/28/19 10:05 Lasix IV 40 mg QDAY FLORES Administration Gabapentin 100 mg 07/24/19 14:00 07/28/19 05:09 Gabapentin PO 100 mg Q8HR FLORES Administration Isosorbide Mononitrate 30 mg 07/24/19 14:00 07/28/19 10:06 Imdur PO 30 mg DAILY FLORES Administration Lisinopril 2.5 mg 07/26/19 10:00 07/28/19 10:06 Zestril PO 2.5 mg QDAY FLORES Administration [place] Carbonate 300 mg 07/24/19 14:00 07/28/19 10:06 Eskalith PO 300 mg TID FLORES Administration Ondansetron HCl 4 mg 07/22/19 23:27 Zofran IV Q8H PRN Nausea And Vomiting Oxycodone/Acetaminophen 1 tab 07/22/19 23:27 Percocet 5/325 PO Q6H PRN Pain, Moderate (4-6) Sertraline HCl 25 mg 07/25/19 10:00 07/28/19 10:05 Zoloft PO 25 mg QDAY FLORES Administration Sodium Chloride 10 ml 07/23/19 10:00 07/28/19 10:06 Sodium Chloride Flush Syringe 10 Ml IV 10 ml BID FLORES Administration Sodium Chloride 10 ml 07/22/19 23:27 Sodium Chloride Flush Syringe 10 Ml IV PRN PRN LINE FLUSH
== END 2019-07-28 15:07 | DRG 871 ==
LOC: ED 19:24 → 4A 22:53 → OBSVTOIN 07-23 10:29
PROVIDERS: ADMIT Internal Medicine; ATTEND Internal Medicine
DX: A41.9 Sepsis, unspecified organism (principal); J18.9 Pneumonia, unspecified organism; E87.1 Hypo-osmolality and hyponatremia; I10 Essential (primary) hypertension; F32.9 Major depressive disorder, single episode, unspecified; R45.851 Suicidal ideations; I25.118 Atherosclerotic heart disease of native coronary artery with other forms of angina pectoris; L03.116 Cellulitis of left lower limb; E78.5 Hyperlipidemia, unspecified; Z82.49 Family history of ischemic heart disease and other diseases of the circulatory system; Z95.1 Presence of aortocoronary bypass graft; I25.2 Old myocardial infarction; Z91.5 Personal history of self-harm
CPT/HCPCS: 36415; 71045; 78452; 80048; 80053; 80307; 81001; 82550; 82553; 84484; 85007; 85025; 85027; 87086; 93005; 93010; 93017; 94760; 96372; G0378; A9270-GY; A9502; J0692; J1650; J1940; J2543; J2785; J7030

== ENCOUNTER 2019-07-28 17:37 | Emergency (ER) | payer MEDICAID ==
--- NOTE | 2019-07-28 18:23 | Event Note ---
ED Screening Note Date of service: 07/28/19 Time: 18:22 ED Screening Note: 63 y o male presents with SI and paln to overdoese recent trial 10 months ago This initial assessment/diagnostic orders/clinical plan/treatment(s) is/are subject to change based on patients health status, clinical progression and re- assessment by fellow clinical providers in the ED. Further treatment and workup at subsequent clinical providers discretion. Patient/guardian urged not to elope from the ED as their condition may be serious if not clinically assessed and managed. Initial orders include: labs, ua,uds main side eval MH consult
[2019-07-28 19:22] LABS: Hematocrit 40.4 % (35.5-45.6); Hemoglobin 13.6 gm/dl (11.8-15.2); Mean Corpuscular HGB Conc 34 % (32-34); Mean Corpuscular Volume 87 fl (84-94); Platelet Count 448 K/mm3 (140-440); Red Blood Count 4.63 M/mm3 (3.65-5.03); Red Cell Distribution Width 13.7 % (13.2-15.2)
[2019-07-28 19:45] LABS: BUN/Creatinine Ratio 19; Blood Urea Nitrogen 23 mg/dL (9-20); Calcium 10.2 mg/dL (8.4-10.2); Hemolysis Index 6
[2019-07-28] MEDS ORDERED: SODIUM CHLORIDE 0.9% 1000 ML IV SOLN IV ONE (19:55)
--- NOTE | 2019-07-28 20:02 | Emergency Department Report ---
ED General Adult HPI - General Chief complaint: Psych Stated complaint: SUCIDIAL Time Seen by Provider: 07/28/19 19:47 Source: patient Mode of arrival: Ambulatory Limitations: No Limitations - History of Present Illness Initial comments: 63-year-old male with a history of depression, coronary artery disease and hypertension presents after stating he has thoughts of hurting himself with pills. Patient was discharged earlier today with a diagnosis of pneumonia and cellulitis. Patient was evaluated by [facility] earlier in the day and at that time was not suicidal. Patient re-presents now stating that he is suicidal again. Patient denies any homicidal ideation. Patient states that his plan is to take pills in order to commit suicide. - Related Data Home Medications Medication Instructions Recorded Confirmed Last Taken lisinopriL [Prinivil] 10 mg PO BID 01/03/18 07/23/19 Unknown Aspirin EC [Halfprin EC] 81 mg PO QDAY 07/23/19 07/23/19 Unknown Previous Rx's Medication Instructions Recorded Last Taken Type Acetaminophen [Acetaminophen TAB] 650 mg PO Q4H PRN tablet 07/24/19 Unknown Rx AtorvaSTATin [Lipitor] 40 mg PO QHS #30 tablet 07/24/19 Unknown Rx Gabapentin 100 mg PO Q8HR #30 cap 07/24/19 Unknown Rx [place] Carbonate [Eskalith] 300 mg PO TID #90 cap 07/24/19 Unknown Rx Metoprolol Xl [Metoprolol 12.5 mg PO BID #60 tablet 07/24/19 Unknown Rx SUCCINATE ER TAB] levoFLOXacin [Levaquin TAB] 750 mg PO Q24HR #7 tablet 07/24/19 Unknown Rx Sulfamethoxazole/Trimethoprim 1 each PO BID #14 tablet 07/26/19 Unknown Rx [Bactrim 400-80 mg Tablet] Clopidogrel [Plavix] 75 mg PO DAILY #30 tablet 07/28/19 Unknown Rx ISOSORBIDE MONOnitrate [Imdur ER] 30 mg PO DAILY #30 tablet 07/28/19 Unknown Rx Sertraline [Zoloft] 25 mg PO QDAY #30 tablet 07/28/19 Unknown Rx Allergies Allergy/AdvReac Type Severity Reaction Status Date / Time No Known Allergies Allergy Verified 06/05/18 10:14 ED Review of Systems ROS: Stated complaint: SUCIDIAL Other details as noted in HPI Constitutional: denies: chills, fever Eyes: denies: eye pain, eye discharge, vision change ENT: denies: ear pain, throat pain Respiratory: denies: cough, shortness of breath, wheezing Cardiovascular: denies: chest pain, palpitations Endocrine: no symptoms reported Gastrointestinal: denies: abdominal pain, nausea, diarrhea Genitourinary: denies: urgency, dysuria Musculoskeletal: denies: back pain, joint swelling, arthralgia Skin: denies: rash, lesions Neurological: denies: headache, weakness, paresthesias Psychiatric: suicidal thoughts Hematological/Lymphatic: denies: easy bleeding, easy bruising ED Past Medical Hx - Past Medical History Previous Medical History?: Yes Hx Hypertension: Yes Hx Heart Attack/AMI: Yes (stent x1) Hx Congestive Heart Failure: No Hx Diabetes: No Hx Psychiatric Treatment: Yes (depression) Hx COPD: No - Surgical History Past Surgical History?: Yes Hx Coronary Stent: Yes - Social History Smoking Status: Never Smoker Substance Use Type: None - Medications Home Medications: Home Medications Medication Instructions Recorded Confirmed Last Taken Type lisinopriL [Prinivil] 10 mg PO BID 01/03/18 07/23/19 Unknown History Aspirin EC [Halfprin EC] 81 mg PO QDAY 07/23/19 07/23/19 Unknown History Acetaminophen [Acetaminophen TAB] 650 mg PO Q4H PRN tablet 07/24/19 Unknown Rx AtorvaSTATin [Lipitor] 40 mg PO QHS #30 tablet 07/24/19 Unknown Rx Gabapentin 100 mg PO Q8HR #30 cap 07/24/19 Unknown Rx [place] Carbonate [Eskalith] 300 mg PO TID #90 cap 07/24/19 Unknown Rx Metoprolol Xl [Metoprolol 12.5 mg PO BID #60 tablet 07/24/19 Unknown Rx SUCCINATE ER TAB] levoFLOXacin [Levaquin TAB] 750 mg PO Q24HR #7 tablet 07/24/19 Unknown Rx Sulfamethoxazole/Trimethoprim 1 each PO BID #14 tablet 07/26/19 Unknown Rx [Bactrim 400-80 mg Tablet] Clopidogrel [Plavix] 75 mg PO DAILY #30 tablet 07/28/19 Unknown Rx ISOSORBIDE MONOnitrate [Imdur ER] 30 mg PO DAILY #30 tablet 07/28/19 Unknown Rx Sertraline [Zoloft] 25 mg PO QDAY #30 tablet 07/28/19 Unknown Rx ED Physical Exam - General Limitations: No Limitations General appearance: alert, in no apparent distress - Head Head exam: Present: atraumatic, normocephalic - Eye Eye exam: Present: normal appearance - ENT ENT exam: Present: mucous membranes moist - Neck Neck exam: Present: normal inspection - Respiratory Respiratory exam: Present: normal lung sounds bilaterally. Absent: respiratory distress - Cardiovascular Cardiovascular Exam: Present: regular rate, normal rhythm. Absent: systolic murmur, diastolic murmur, rubs, gallop - GI/Abdominal GI/Abdominal exam: Present: soft, normal bowel sounds - Rectal Rectal exam: Present: deferred - Extremities Exam Extremities exam: Present: normal inspection - Back Exam Back exam: Present: normal inspection - Neurological Exam Neurological exam: Present: alert, oriented X3 - Psychiatric Psychiatric exam: Present: normal affect, normal mood, suicidal ideation. Absent: homicidal ideation - Skin Skin exam: Present: warm, dry, intact, other (Erythema noted in right lower extremity.). Absent: rash ED Course Vital Signs 07/28/19 07/28/19 07/28/19 18:23 20:05 20:08 Temperature 98.0 F 98.6 F Pulse Rate 97 H 85 Respiratory 18 20 20 Rate Blood Pressure 86/55 Blood Pressure 103/61 [Right] O2 Sat by Pulse 95 97 97 Oximetry 07/28/19 07/29/19 07/29/19 21:20 01:00 01:40 Temperature 98.4 F 98.2 F Pulse Rate 93 H 90 78 Respiratory 18 16 20 Rate Blood Pressure Blood Pressure 121/76 121/74 126/75 [Right] O2 Sat by Pulse 96 96 99 Oximetry ED Medical Decision Making - Lab Data Result diagrams: 07/28/19 18:52 07/28/19 18:52 - Medical Decision Making Patient has been treated for 5 days previously for pneumonia that has improved while in the emergency department. Patient was discharged earlier today with p.o. antibiotics which he still has the prescription for. Patient has a normal O2 sat. Patient blood pressure is improved with fluid hydration while here in emergency department patient has no medical complaint. Patient is medically clear to return to [facility] for continued management and treatment for his suicidal ideation. Case discussed with [facility] who states that patient was not formally admitted at that facility. Patient to be made a 1013 secondary to a suicidal ideation and will be assessed by behavioral health in the a.m. for potential transfer to [facility] for inpatient management. Patient received a dose of doxycycline to treat his uti and cellulits while in the ER as his prescriptions are in his bag here in the ER. - Differential Diagnosis Electrolyte abnormality; anemia; dehydration; pneumonia Critical care attestation.: If time is entered above; I have spent that time in minutes in the direct care of this critically ill patient, excluding procedure time. ED Disposition Clinical Impression: Suicidal ideation, Cellulitis, UTI (urinary tract infection) Is pt being admited?: No Condition: Stable Referrals: PRIMARY CARE, [Primary Care Provider] - 3-5 Days
[2019-07-28] MEDS ORDERED: SODIUM CHLORIDE 0.9% 1000 ML 1,000 ML IV ONE (20:10)
[2019-07-28 20:52] LABS: Amphetamine Screen,Urine PRESUMPTIVE NEGATIVE; Benzodiazepines Screen,Urine PRESUMPTIVE NEGATIVE; Cannabinoid Screen,Urine PRESUMPTIVE NEGATIVE; Cocaine Screen,Urine PRESUMPTIVE NEGATIVE; Methadone Screen,Urine PRESUMPTIVE NEGATIVE; Opiate Screen,Urine PRESUMPTIVE NEGATIVE
[2019-07-28 21:11] LABS: Bacteria,Urine 1+ /HPF (Negative); Bilirubin,Urine NEG (Negative); Blood,Urine NEG (Negative); Color,Urine Amber (Yellow); Hyaline Casts,Urine 9 /LPF; Mucus,Urine 3+ /HPF; Urobilinogen,Urine < 2.0 mg/dL (<2.0)
[2019-07-28] MEDS ORDERED: DOXYCYCLINE 100 MG TAB PO ONE (21:19)
[2019-07-28 21:49] LABS: Basophils % (Manual) 0 % (0.0-1.8); Total Cells Counted 100
[2019-07-28 21:50] LABS: Anisocytosis 1+; Platelet Estimate Consistent w Auto
[2019-07-29] MEDS ORDERED: DOXYCYCLINE 100 MG TAB PO ONE (10:05)
--- NOTE | 2019-07-29 12:34 | Consultation ---
History of Present Illness - Reason for Consult Consult date: 07/29/19 Reason for consult: SI - Chief Complaint Chief complaint: SI by way of OD - History of Present Psychiatric Illness David Baca is a 63y/o male who was admitted for suicidal ideation. The patient is known to me from a recent visit. The patient is a/o x 3. He is calm and cooperative. He complains of suicidal ideation with a plan to "take pills." The patient says, "I went to [facility] hoping I can get back in there. But they wouldn't accept me. They told me to come back here." He says, "going home is really not an option. I'm not sure what would happen." When asked about his mood, he replied, "I don't know. I'm just waking up.' He denies hallucinations of any kind. The patient denies any illicit drug use, alcohol, or nicotine use. He says he has a history of "Bipolar" and takes "lithium." Mr. Baca says he's attempted suicide "three times" and has been an inpatient for psych "three times." He says he "okay" and his appetite is "good." PAST PSYCHIATRIC HISTORY: Diagnoses: Bipolar Suicide attempts or Self-harm behavior: "three times" Prior psychiatric hospitalizations: "three times" Substance Abuse history: Denies Previous psychiatric medications tried: [facility] treatment: Yes PAST MEDICAL HISTORY: None reported Family Psychiatric History: None reported SOCIAL HISTORY Marital Status: Single Living Arrangements: Home of Light Employment Status: Disabled Access to guns/weapons: Denies Education: History of Abuse: Denies Legal History: Denies ROS: Constitutional: Negative for weight loss ENT: Negative for stridor Respiratory: Negative for cough or hemoptysis All other systems reviewed and are negative MENTAL STATUS General Appearance: Dressed appropriately. Behavior: Calm, cooperative, Good eye contact Affect: Incongruent Mood: "I'm not sure. Just waking up." Speech: Normal tone and pace Thought Process: Goal directed Thought Content Suicidal Ideation: Denies Homicidal Ideation: Denies Hallucinations: Denies Delusions: Denies Insight/Judgement: Limited Memory/Cognition: Good ASSESSMENT: Bipolar Disorder RECOMMENDATIONS Increased home Zoloft 50mg po daily Restarted [facility] 300mg po TID [facility] Level Risks, benefits and alternatives of medications discussed with the patient, ques tions answered and consent obtained from patient. PSYCHOTHERAPY: Supportive psychotherapy provided MEDICAL: Per primary team DELIRIUM PRECAUTIONS: Please re-orient patient frequently, keep lights on during the day, and minimize benzodiazepines and opiates as these medications could worsen patient's confusion. DOCUMENT REVIEW SPECIALIST: Defer to primary DISPOSITION: The patient meets the requirement for acute inpatient psychiatric treatment. He may transfer to an acute inpatient facility once medically heidy red. Will continue to follow until the patient is transferred or his condition improves. The treatment plan, including benefits, and side effects of medication was discussed with the patient. The patient verbalizes understanding and agreement of plan. The treatment plan was discussed with Dr. Patton. Please call with any questions or concerns. Thank you for this consult. Medications and Allergies Allergies Allergy/AdvReac Type Severity Reaction Status Date / Time No Known Allergies Allergy Verified 06/05/18 10:14 Home Medications Medication Instructions Recorded Confirmed Last Taken Type lisinopriL [Prinivil] 10 mg PO BID 01/03/18 07/29/19 Unknown History Aspirin EC [Halfprin EC] 81 mg PO QDAY 07/23/19 07/29/19 Unknown History Acetaminophen [Acetaminophen TAB] 650 mg PO Q4H PRN tablet 07/24/19 07/29/19 Unknown Rx AtorvaSTATin [Lipitor] 40 mg PO QHS #30 tablet 07/24/19 07/29/19 Unknown Rx Gabapentin 100 mg PO Q8HR #30 cap 07/24/19 07/29/19 Unknown Rx [facility] Carbonate [Eskalith] 300 mg PO TID #90 cap 07/24/19 07/29/19 Unknown Rx Metoprolol Xl [Metoprolol 12.5 mg PO BID #60 tablet 07/24/19 07/29/19 Unknown Rx SUCCINATE ER TAB] levoFLOXacin [Levaquin TAB] 750 mg PO Q24HR #7 tablet 07/24/19 07/29/19 Unknown Rx Sulfamethoxazole/Trimethoprim 1 each PO BID #14 tablet 07/26/19 07/29/19 Unknown Rx [Bactrim 400-80 mg Tablet] Clopidogrel [Plavix] 75 mg PO DAILY #30 tablet 07/28/19 07/29/19 Unknown Rx ISOSORBIDE MONOnitrate [Imdur ER] 30 mg PO DAILY #30 tablet 07/28/19 07/29/19 Unknown Rx Sertraline [Zoloft] 25 mg PO QDAY #30 tablet 07/28/19 07/29/19 Unknown Rx Mental Status Exam - Vital signs Last Vital Signs Temp 98.5 F 07/29/19 07:00 Pulse 78 07/29/19 07:00 Resp 18 07/29/19 07:00 BP 124/76 07/29/19 07:00 Pulse Ox 96 07/29/19 07:00 Results Result Diagrams: 07/28/19 18:52 07/28/19 18:52 Abnormal lab results 07/28/19 07/28/19 07/28/19 Range/Units 18:52 18:52 18:52 WBC (4.5-11.0) K/mm3 Plt Count (140-440) K/mm3 Seg Neuts % (Manual) (40.0-70.0) % Lymphocytes % (Manual) (13.4-35.0) % Nucleated RBC % (0.0-0.9) % Seg Neutrophils # Man (1.8-7.7) K/mm3 Monocytes # (Manual) (0.0-0.8) K/mm3 Carbon Dioxide 21 L (22-30) mmol/L BUN 23 H (9-20) mg/dL Glucose 110 H (75-100) mg/dL Urine WBC (Auto) (0.0-6.0) /HPF Salicylates < 0.3 L (2.8-20.0) mg/dL Acetaminophen < 5.0 L (10.0-30.0) ug/mL 07/28/19 07/28/19 Range/Units 18:52 20:25 WBC 15.9 H (4.5-11.0) K/mm3 Plt Count 448 H (140-440) K/mm3 Seg Neuts % (Manual) 83.0 H (40.0-70.0) % Lymphocytes % (Manual) 9.0 L (13.4-35.0) % Nucleated RBC % 1.0 H (0.0-0.9) % Seg Neutrophils # Man 13.2 H (1.8-7.7) K/mm3 Monocytes # (Manual) 1.1 H (0.0-0.8) K/mm3 Carbon Dioxide (22-30) mmol/L BUN (9-20) mg/dL Glucose (75-100) mg/dL Urine WBC (Auto) 79.0 H (0.0-6.0) /HPF Salicylates (2.8-20.0) mg/dL Acetaminophen (10.0-30.0) ug/mL All other labs normal.
[2019-07-29] MEDS ORDERED: SERTRALINE 25 MG TAB PO SCH (13:00)
[2019-07-29] MEDS: SERTRALINE 25 MG TAB PO SCH (14:00)
[2019-07-29] MEDS: LITHIUM CARBONATE 300 MG CAP PO SCH ×2 (15:00→22:40)
[2019-07-30] MEDS: LITHIUM CARBONATE 300 MG CAP PO SCH ×2 (09:00→15:00)
[2019-07-30] MEDS: SERTRALINE 25 MG TAB PO SCH (10:18)
--- NOTE | 2019-07-30 13:29 | Progress Note ---
Subjective - Reason for Consult Consult date: 07/30/19 Reason for consult: suicidal ideation - Chief Complaint Chief complaint: During my interview today the patient was lying down. Awake. A/o x 3. He makes good eye contact. He states he feels "pretty good, waking up ange slow." When asking about suicidal or harmful thoughts, the patient replies, "I haven't been awake long enough to have any suicidal thoughts." He say "but I haven't been before sleep." He says he slept "good." He also states "my appetite is pretty good." The patient denies hallucinations of any kind. ROS: Constitutional: Negative for weight loss ENT: Negative for stridor Respiratory: Negative for cough or hemoptysis All other systems reviewed and are negative MENTAL STATUS General Appearance: Dressed appropriately. Behavior: Calm, cooperative, Good eye contact Affect: Congruent Mood: "pretty good" Speech: Normal tone and pace Thought Process: Goal directed Thought Content Suicidal Ideation: Denies Homicidal Ideation: Denies Hallucinations: Denies Delusions: Denies Insight/Judgement: Limited Memory/Cognition: Good ASSESSMENT: Bipolar Disorder RECOMMENDATIONS D/C 1013 Continue home White Zoloft 50mg po daily Risks, benefits and alternatives of medications discussed with the patient, questions answered and consent obtained from patient. PSYCHOTHERAPY: Supportive psychotherapy provided MEDICAL: Per primary team DELIRIUM PRECAUTIONS: Please re-orient patient frequently, keep lights on during the day, and minimize benzodiazepines and opiates as these medications could worsen patient's confusion. CASH POSTING SPECIALIST: Defer to primary DISPOSITION: The patient does not meet the requirement for acute inpatient psychiatric treatment. He may discharge home once medically cleared. The patient understands that if suicidal or self harm thoughts are to arise he is to seek immediate assistance including, but not limited to the crisis hotline, 911 and/or ER. The commissioner of officials is to reinforce treatment plan with the patient The treatment plan, including benefits, and side effects of medication was discussed with the patient. The patient verbalizes understanding and agreement of plan. The treatment plan was discussed with Dr. Patton. Please call with any questions or concerns. Thank you for this consult. Mental Status Exam - Vital signs Last Vital Signs Temp 98.5 F 07/30/19 08:38 Pulse 77 07/30/19 08:38 Resp 18 07/30/19 08:38 BP 135/81 07/30/19 08:38 Pulse Ox 93 07/30/19 08:38
[2019-07-30 14:32] VITALS: BP 125/76
== END 2019-07-30 16:08 | disposition home or self-care (01) ==
LOC: EEVIPCON 17:37 → ED 17:37
DX: R45.851 Suicidal ideations (principal); N39.0 Urinary tract infection, site not specified; L03.90 Cellulitis, unspecified; F32.9 Major depressive disorder, single episode, unspecified; I25.10 Atherosclerotic heart disease of native coronary artery without angina pectoris; I10 Essential (primary) hypertension; I25.2 Old myocardial infarction; Z95.5 Presence of coronary angioplasty implant and graft; Z79.82 Long term (current) use of aspirin; Z79.899 Other long term (current) drug therapy
CPT/HCPCS: 36415; 80048; 80307; 81001; 85007; 85025; 87086; 99284; J7030; 80320; G0480